=== PATIENT | female | born 1945 | race Caucasian/White ===

== ENCOUNTER 2020-07-10 00:45 | Emergency (ER) | payer OTHER ==
[2020-07-10] MEDS ORDERED: HYDROCODONE/APAP 7.5/325 MG TAB ONE (01:30)
--- NOTE | 2020-07-10 01:45 | ER ---
Nurse's Notes [facility] Name: Nela Handy Age: 75 yrs Sex: Female : 1945 Arrival Date: 07/10/2020 Time: 00:49 Bed 5 Private MD: Diagnosis: Fall due to bumping against object;Pain in right knee;Contusion of right knee;Obesity, unspecified Presentation: 07/10 01:01 Chief complaint: Patient states: fell at 10 PM, reports right knee pain, denies hitting em head, is taking warfarin for prior CVA. Coronavirus screen: Client denies travel out of the [place] in the last 14 days. Ebola Screen: Patient negative for fever greater than or equal to 101.5 degrees Fahrenheit, and additional compatible Ebola Virus Disease symptoms Patient denies exposure to infectious person. Patient denies travel to an Ebola-affected area in the 21 days before illness onset. No symptoms or risks identified at this time. Initial Sepsis Screen: Does the patient meet any 2 criteria? No. Patient's initial sepsis screen is negative. Does the patient have a suspected source of infection? No. Patient's initial sepsis screen is negative. Risk Assessment: Do you want to hurt yourself or someone else? Patient reports no desire to harm self or others. Onset of symptoms was July 10, 2020. 01:01 Method Of Arrival: Wheelchair em 01:01 Acuity: ANNE 3 em Historical: - Allergies: 01:04 No Known Allergies; em - Home Meds: 01:07 warfarin 5 mg Oral tab [Active]; amiodarone 200 mg Oral tab [Active]; buspirone 15 mg em Oral tab [Active]; famotidine 20 mg Oral tab [Active]; metoprolol succinate 100 mg oral Tb24 1 tab once daily [Active]; furosemide 40 mg Oral tab [Active]; - PMHx: 01:04 Hypertension; CHF; CVA; em - Immunization history:: Adult Immunizations up to date. - Social history:: Smoking status: Patient denies any tobacco usage or history of. - Family history:: not pertinent. Screenin:10 Abuse screen: Denies threats or abuse. Nutritional screening: No deficits noted. ea Tuberculosis screening: No symptoms or risk factors identified. Fall Risk None identified. Assessment: 01:10 General: Appears in no apparent distress. Behavior is calm, cooperative, appropriate ea for age. Pain: Complains of pain in right knee. Neuro: Level of Consciousness is awake, alert, obeys commands, Oriented to person, place, time. Cardiovascular: Patient's skin is warm and dry. Respiratory: Airway is patent Respiratory effort is even, unlabored, Respiratory pattern is regular, symmetrical. Derm: Skin is pink, warm \T\ dry. 02:08 Reassessment: Patient appears in no apparent distress at this time. Patient is alert, rr5 oriented x 3, equal unlabored respirations, skin warm/dry/pink. discharge instruction given and explained without complaints made. Vital Signs: 01:01 BP 135 / 58; Pulse 68; Resp 18; Temp 97.7; Pulse Ox 97% on R/A; Weight 95.25 kg; Height em 5 ft. 2 in. (157.48 cm); 02:08 BP 127 / 85; Pulse 69; Resp 16; Pulse Ox 98% ; rr5 01:01 Body Mass Index 38.41 (95.25 kg, 157.48 cm) em ED Course: 00:49 Patient arrived in ED. bp1 00:53 Matt Nicholson MD is Attending Physician. evy 01:03 Triage completed. em 01:04 Arm band placed on. em 01:09 Angely العراقي, YAMILEX is Primary Nurse. ea 01:30 Knee Right 3 View XRAY In Process Unspecified. EDMS 01:42 Daniel Bundy MD is Referral Physician. evy 01:48 Patient has correct armband on for positive identification. Bed in low position. Call ea light in reach. Side rails up X2. 02:08 No provider procedures requiring assistance completed. Patient did not have IV access rr5 during this emergency room visit. Knee immobilizer applied on right knee. Administered Medications: 01:15 Drug: [place] (HYDROcodone-acetaminophen) (7.5 mg-325 mg) 1 tabs Route: PO; ea 02:09 Follow up: Response: No adverse reaction; Pain is decreased; RASS: Alert and Calm (0) rr5 Outcome: 01:44 Discharge ordered by . evy 02:08 Discharged to home via wheelchair, with family. rr5 02:08 Condition: stable 02:08 Discharge instructions given to patient, family, Instructed on discharge instructions, follow up and referral plans. medication usage, Demonstrated understanding of instructions, follow-up care, medications, Prescriptions given X 1. 02:09 Patient left the ED. rr5 Signatures: Dispatcher [employer] Matt Aleman MD MD cha Munoz, Edgar, RN RN Angely Bella RN RN ea Roque, Raymond RN RN rr5 Kaylee Jacobson
--- NOTE | 2020-07-10 01:45 | EDPHYS ---
Physician Documentation [facility] Name: Nela Handy Age: 75 yrs Sex: Female : 1945 Arrival Date: 07/10/2020 Time: 00:49 Bed 5 Private MD: ED Physician Matt Nicholson HPI: 07/10 01:09 This 75 yrs old Female presents to ER via Wheelchair with complaints of Fall evy Injury, Leg Pain. 01:09 Details of fall: The patient fell from an upright position, while walking. Onset: The evy symptoms/episode began/occurred just prior to arrival. Associated injuries: The patient sustained right knee, contusion, decreased range of motion. Severity of symptoms: At their worst the symptoms were mild, in the emergency department the symptoms are unchanged. The patient has not experienced similar symptoms in the past. Historical: - Allergies: 01:04 No Known Allergies; em - Home Meds: 01:07 warfarin 5 mg Oral tab [Active]; amiodarone 200 mg Oral tab [Active]; buspirone 15 mg em Oral tab [Active]; famotidine 20 mg Oral tab [Active]; metoprolol succinate 100 mg oral Tb24 1 tab once daily [Active]; furosemide 40 mg Oral tab [Active]; - PMHx: 01:04 Hypertension; CHF; CVA; em - Immunization history:: Adult Immunizations up to date. - Social history:: Smoking status: Patient denies any tobacco usage or history of. - Family history:: not pertinent. ROS: 01:09 Constitutional: Negative for fever, chills, and weight loss, Eyes: Negative for injury, evy pain, redness, and discharge, ENT: Negative for injury, pain, and discharge, Neck: Negative for injury, pain, and swelling, Cardiovascular: Negative for chest pain, palpitations, and edema, Respiratory: Negative for shortness of breath, cough, wheezing, and pleuritic chest pain, Abdomen/GI: Negative for abdominal pain, nausea, vomiting, diarrhea, and constipation, Back: Negative for injury and pain, : Negative for injury, bleeding, discharge, and swelling, Skin: Negative for injury, rash, and discoloration, Neuro: Negative for headache, weakness, numbness, tingling, and seizure, Psych: Negative for depression, anxiety, suicide ideation, homicidal ideation, and hallucinations, Allergy/Immunology: Negative for hives, rash, and allergies, Endocrine: Negative for neck swelling, polydipsia, polyuria, polyphagia, and marked weight changes, Hematologic/Lymphatic: Negative for swollen nodes, abnormal bleeding, and unusual bruising. 01:09 MS/extremity: Positive for decreased range of motion, erythema, pain, swelling, tenderness, of the right leg and left leg, right knee. Exam: 01:11 Constitutional: This is a well developed, well nourished patient who is awake, alert, evy and in no acute distress. Head/Face: Normocephalic, atraumatic. Eyes: Pupils equal round and reactive to light, extra-ocular motions intact. Lids and lashes normal. Conjunctiva and sclera are non-icteric and not injected. Cornea within normal limits. Periorbital areas with no swelling, redness, or edema. ENT: Nares patent. No nasal discharge, no septal abnormalities noted. Tympanic membranes are normal and external auditory canals are clear. Oropharynx with no redness, swelling, or masses, exudates, or evidence of obstruction, uvula midline. Mucous membranes moist. Neck: Trachea midline, no thyromegaly or masses palpated, and no cervical lymphadenopathy. Supple, full range of motion without nuchal rigidity, or vertebral point tenderness. No Meningismus. Chest/axilla: Normal chest wall appearance and motion. Nontender with no deformity. No lesions are appreciated. Cardiovascular: Regular rate and rhythm with a normal S1 and S2. No gallops, murmurs, or rubs. Normal PMI, no JVD. No pulse deficits. Respiratory: Lungs have equal breath sounds bilaterally, clear to auscultation and percussion. No rales, rhonchi or wheezes noted. No increased work of breathing, no retractions or nasal flaring. Abdomen/GI: Soft, non-tender, with normal bowel sounds. No distension or tympany. No guarding or rebound. No evidence of tenderness throughout. Back: No spinal tenderness. No costovertebral tenderness. Full range of motion. Female : Normal external genitalia. Skin: Warm, dry with normal turgor. Normal color with no rashes, no lesions, and no evidence of cellulitis. Neuro: Awake and alert, GCS 15, oriented to person, place, time, and situation. Cranial nerves II-XII grossly intact. Motor strength 5/5 in all extremities. Sensory grossly intact. Cerebellar exam normal. Normal gait. Psych: Awake, alert, with orientation to person, place and time. Behavior, mood, and affect are within normal limits. 01:11 Musculoskeletal/extremity: Extremities: noted in the right knee: decreased ROM, erythema, pain, swelling, tenderness, ROM: limited active range of motion, in the right knee, limited passive range of motion, Circulation is intact in all extremities. Sensation intact. Compartment Syndrome exam of affected extremity: is normal. Joints: All joints are normal except the right knee displays limited range of motion, pain at rest, painful range of motion, swelling, tenderness, DVT Exam: negative Homans' sign noted on exam, no appreciated bluish discoloration, no increased warmth, pain, swelling, tenderness, erythema. Vital Signs: 01:01 BP 135 / 58; Pulse 68; Resp 18; Temp 97.7; Pulse Ox 97% on R/A; Weight 95.25 kg; Height em 5 ft. 2 in. (157.48 cm); 02:08 BP 127 / 85; Pulse 69; Resp 16; Pulse Ox 98% ; rr5 01:01 Body Mass Index 38.41 (95.25 kg, 157.48 cm) em MDM: 00:53 Patient medically screened. [facility] 01:13 Differential diagnosis: contusion. Data reviewed: vital signs, nurses notes, radiologic evy studies, plain films. Data interpreted: court monitor: rate is 68 beats/min, rhythm is regular, Pulse oximetry: on room air is 68 %. Test interpretation: by ED physician or midlevel provider: plain radiologic studies. Counseling: I had a detailed discussion with the patient and/or guardian regarding: radiology results. 07/10 01:06 Order name: Knee Right 3 View XRAY [facility] 07/10 01:09 Order name: Ice pack; Complete Time: 02:08 evy 07/10 01:09 Order name: Knee Immobilizer; Complete Time: 02:07 [facility] Administered Medications: 01:15 Drug: [place] (HYDROcodone-acetaminophen) (7.5 mg-325 mg) 1 tabs Route: PO; ea 02:09 Follow up: Response: No adverse reaction; Pain is decreased; RASS: Alert and Calm (0) rr5 Disposition: 07/10/20 01:44 Discharged to Home. Impression: Fall due to bumping against object, Pain in right knee, Contusion of right knee, Obesity, unspecified. - Condition is Stable. - Discharge Instructions: Joint Pain, How to Use a Knee Brace, Musculoskeletal Pain, Obesity, Adult, Knee Pain, Cryotherapy, [id number], Fall Prevention in the Home, [id number], Cryotherapy. - Prescriptions for Tylenol- Codeine #3 300-30 mg Oral Tablet - take 2 tablets by ORAL route every 4-6 hours As needed; 20 tablet. - Medication Reconciliation Form, Thank You Letter, Antibiotic Education, Prescription Opioid Use form. - Follow up: Private Physician; When: 2 - 3 days; Reason: Recheck today's complaints, Continuance of care, Re-evaluation by your physician. Follow up: Daniel Bundy MD; When: 2 - 3 days; Reason: Recheck today's complaints, Re-evaluation by your physician. - Problem is new. - Symptoms have improved. Signatures: Dispatcher [employer] EDMatt Elise MD MD cha Munoz, Edgar, RN RN Angely Bella, RN RN Lenny Beltre RN RN rr5 Corrections: (The following items were deleted from the chart) 02:09 01:44 07/10/2020 01:44 Discharged to Home. Impression: Fall due to bumping against rr5 object; Pain in right knee; Contusion of right knee; Obesity, unspecified. Condition is Stable. Forms are Medication Reconciliation Form, Thank You Letter, Antibiotic Education, Prescription Opioid Use. Follow up: Private Physician; When: 2 - 3 days; Reason: Recheck today's complaints, Continuance of care, Re-evaluation by your physician. Follow up: Daniel Bundy; When: 2 - 3 days; Reason: Recheck today's complaints, Re-evaluation by your physician. Problem is new. Symptoms have improved. evy
[2020-07-10 02:15] VITALS: TEMP 97.7
[2020-07-10 02:16] VITALS: BP 127/85; O2SAT 98
--- NOTE | 2020-07-10 06:45 | RAD REPORT ---
EXAM DESCRIPTION: RAD - Knee Right 3 View - 07/10/2020 1:30 am CLINICAL HISTORY: PAIN COMPARISON: No comparisons FINDINGS: No fracture, dislocation or periosteal reaction.No joint effusion seen. No joint space urbano rowing. No foreign body in the soft tissues. There are contusion or edema changes anteromedial soft t issues IMPRESSION: No acute bone or joint finding seen. Clinical concerns for internal derangement or occult bony injury could be further assessed with MR im aging.
== END 2020-07-10 02:09 | disposition home or self-care (01) ==
LOC: ER 00:45
DX: S80.01XA Contusion of right knee, initial encounter (principal); E66.9 Obesity, unspecified; W18.00XA Striking against unspecified object with subsequent fall, initial encounter; Y93.01 Activity, walking, marching and hiking; Y92.9 Unspecified place or not applicable; Z79.01 Long term (current) use of anticoagulants; Z86.73 Personal history of transient ischemic attack (TIA), and cerebral infarction without residual deficits; I10 Essential (primary) hypertension; I50.9 Heart failure, unspecified
CPT/HCPCS: 99284

== ENCOUNTER 2020-09-10 19:11 | Inpatient (IN) | payer OTHER ==
--- OUTSIDE RECORDS SUMMARY | 2020-09-10 19:16 | XMS REPORT | Continuity of Care Document ---
:1945 Author Organization [facility] t Address [facility] [address] [place] [address] Care Team Providers Name Role Phone Kemar PADRON, Jose Santos Primary Care Physician Danielle Reinoso MD Attending Clinician Hung PADRON Attending Clinician Tyesha Casanova MD' Attending Clinician DANIELLE REINOSO Attending Clinician Unavailable DANIELLE REINOSO Admitting Clinician Unavailable Payers Payer Name Policy Type Policy Number Effective Date Expiration Date S ourmorenita AETNA - MEDICARE [id number] [address] [facility] [address] [facility] MGD CAREAETNA 00:00:00 - Medical MEDICARE O POS Center [id number], [place] [address] Problems Condition Condition Condition Status Onset Resolution Last Treating Co mments Source Name Details Category Date Date Treatment Clinician Date 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, 07-13 [facility] - right right 00:00: Medical 00 Center Allergies, Adverse Reactions, Alerts Allergy Allergy Status Severity Reaction(s) Onset Inactive Treating Comm ents Source Name Type Date Date Clinician Penicill Propensi Active [facility] to 07[facility]13 [facility] - adverse 00:00: Medical reaction 00 Center s Social History Social Habit Start Date Stop Date Quantity Comments Source Sex Assigned At [facility] Medications Ordered Filled Start Stop Current Ordering Indication Dosage Frequency Signature Comments Components Source Medication Medication Date Date Medication? Clinician (SIG) Name Name digoxin 2021- Yes 250ug QD Take [address] [facility] (LANOXIN) 4-30 04-30 tablet [facility] - 0.25 MG 00:00: 23:59 (250 mcg Medic al tablet 00 :00 total) by Center mouth daily. famotidine Yes 20mg Q.5D Take [address] (PEPCID) 20 4-29 by mouth 2 Carlito kes - MG tablet 17:26: (two) Medical 06 times Center daily. furosemide Yes 40mg Q.5D Take [address] (LASIX) 40 4-29 by mouth 2 Telma es - MG tablet 17:26: (two) Medical 06 times Center daily. levalbutero Yes 1{ampul Take [address] (XOPENEX) 4-29 e} ampule by Telma es - 1.25 mg/3 17:26: nebulizati Me dical mL 06 on every 4 Center nebulizer (four) solution hours as needed for Wheezing. metoprolol Yes 50mg Q.5D Take [address] tartrate 4-29 by mouth 2 [facility] - (LOPRESSOR) 17:26: (two) Medic al 50 MG 06 times Center tablet daily. silver Yes QD Apply [facility] sulfADIAZIN 4-29 topically Telma es - E 17:26: daily. Medical (SILVADENE, 06 Center SSD) 1 % cream warfarin Yes 5mg QD Take [address] [facility] (COUMADIN, 4-29 by mouth [facility] - JANTOVEN) 5 17:26: daily. Medi alfreda MG tablet 06 Center tiotropium Yes 18ug QD Inhale [address] (SPIRIVA) 4-29 mcg by [facility] - 18 mcg 17:26: mouth via Medica l inhalation 06 inhaler Center capsule daily. acetaminoph Yes 650mg Take [address] en 4-29 mg by [facility] - (TYLENOL) 17:26: mouth Medical 325 MG 06 every 6 Center tablet (six) hours as needed for Pain. amiodarone 0 Yes 200mg QD Take [address] (PACERONE) 4-29 mg by [facility] - 200 MG 17:26: mouth Medical tablet 06 daily. Center busPIRone 2021-0 Yes 15mg Q.5D Take [address] (BUSPAR) 15 -29 by mouth 2 Carlito kes - MG tablet 17:26: (two) Medical 06 times Center daily. vancomycin Yes 1000mg Q24H Inject [facility] (VANCOCIN) - 1,000 mg [facility] - 1000 mg in 00:00: intravenou M edical sodium 00 sly daily. Center chloride 0.9 % (NS) 250 mL ADD EASE IVPB Vital Signs Vital Name Observation Time Observation Value Comments Source Systolic blood 2020-07-25 16:18:00 120 mm[Hg] [facility] Diastolic blood 2020-07-25 16:18:00 70 mm[Hg] [facility] S [facility] Heart rate 2020-07-25 16:18:00 82 /min [facility] Body temperature 2020-07-25 16:18:00 36.67 [place] [facility] Respiratory rate 2020-07-25 16:18:00 18 /min [facility] Oxygen saturation in 2020-07-25 16:18:00 99 /min [facility] Arterial blood by Medical Ce nter Pulse oximetry Body height 2020-07-13 22:28:00 157.5 cm [facility] Body weight 2020-07-13 22:28:00 91.173 kg [facility] BMI 2020-07-13 22:28:00 36.76 kg/m2 [facility] Procedures Procedure Date / Time Performing Clinician Source Performed POCT-GLUCOSE METER 2020-07-25 16:42:00 Jose Reinoso [facility] POCT-GLUCOSE METER 2020-07-25 12:20:00 [facility] POCT-GLUCOSE METER 2020-07-25 08:20:00 Jose Reinoso [facility] PROTHROMBIN TIME/INR 2020-07-25 04:49:[address] [facility] PROTHROMBIN TIME/INR 2020-07-24 06:21:[address] [facility] BASIC METABOLIC PANEL (7) 2020-07-24 03:10:[address] [facility] MAGNESIUM 2020-07-24 03:10:[address] [facility] CBC W/PLT COUNT & AUTO 2020-07-24 03:09:00 Johnny Ferrariluis Foster [facility] XR SHOULDER LEFT COMPLETE 2020-07-23 19:22:00 Vianney Ferrari [facility] - MIN 2 VIEWS [facility] TRANSESOPHAGEAL ECHO 2020-07-23 08:24:09 Alf [facility] COLOR-FLOW MAPPING 2020-07-22 16:37:08 Lamar [facility] CONT WAVE PULSED DOPPLER 2020-07-22 16:37:08 Alf [facility] MAGNESIUM 2020-07-22 03:24:[address] [facility] CBC W/PLT COUNT & AUTO 2020-07-22 03:24:00 RamomattTrevin tabares [facility] BASIC METABOLIC PANEL (7) 2020-07-22 03:24:00 [facility] V[facility]ney rojas [facility] XR CHEST 1 VIEW 2020-07-21 06:10:00 Trevin Ferrari [facility] - PORTABLE/BEDSIDE [facility] VANCOMYCIN LEVEL, TROUGH 2020-07-20 23:19:00 Earlene Persaud [facility] POCT-GLUCOSE METER 2020-07-20 17:17:00 Jose Reinoso [facility] POCT-GLUCOSE METER 2020-07-20 11:41:00 [facility] POCT-GLUCOSE METER 2020-07-20 08:04:00 [facility] W/PLT COUNT & AUTO 2020-07-20 05:45:[address] [facility] DIFFERENTIAL [facility] COMPREHENSIVE METABOLIC 2020-07-20 05:45:00 Trevin Ferrari [facility] PANEL [facility] MAGNESIUM 2020-07-20 05:45:00 Trevin Ferrari [facility] POCT-GLUCOSE METER 2020-07-19 16:02:00 Jose Reinoso [facility] POCT-GLUCOSE METER 2020-07-19 11:51:00 Jose Reinoso [facility] POCT-GLUCOSE METER 2020-07-19 08:30:00 Jose Reinoso [facility] POCT-GLUCOSE METER 2020-07-18 17:10:00 Jose Reinoso [facility] SARS-COV2/RT-PCR ([facility] & 2020-07-18 14:17:00 Jose Reinoso [facility] POCT-GLUCOSE METER 2020-07-18 11:58:00 Jose Reinoso [facility] POCT-GLUCOSE METER 2020-07-18 08:16:00 Jose Reinoso [facility] POCT-GLUCOSE METER 2020-07-17 21:30:00 Jose Reinoso [facility] POCT-GLUCOSE METER 2020-07-17 17:52:00 Jose Reinoso [facility] PROTHROMBIN TIME/INR 2020-07-17 12:54:00 Jasper Milner [facility] POCT-GLUCOSE METER 2020-07-17 11:22:00 Jose Reinoso [facility] XR CHEST 1 VIEW 2020-07-17 09:39:00 Wilton Gonzalez [facility] PORTABLE/BEDSIDE [facility] POCT-GLUCOSE METER 2020-07-17 09:15:00 [facility] W/PLT COUNT & AUTO 2020-07-17 05:04:00 Jose Reinoso [facility] COMPREHENSIVE METABOLIC 2020-07-17 05:04:00 Live Reinosolala Castorenaijll [facility] MAGNESIUM 2020-07-17 05:04:00 Jose Reinoso [facility] VANCOMYCIN LEVEL, TROUGH 2020-07-16 22:44:00 Ciro James [facility] POCT-GLUCOSE METER 2020-07-16 19:52:00 Jose Reinoso [facility] POCT-GLUCOSE METER 2020-07-16 15:20:00 [facility] XR CHEST 1 VIEW 2020-07-16 13:49:00 Wilton Gonzalez [facility] PORTABLE/BEDSIDE [facility] POCT-GLUCOSE METER 2020-07-16 11:37:00 Kemar Jose [facility] POCT-GLUCOSE METER 2020-07-16 07:07:00 [facility] CBC W/PLT COUNT & AUTO 2020-07-16 04:58:00 Live Reinosolala [facility] COMPREHENSIVE METABOLIC 2020-07-16 04:58:00 Alda Valenzuela [facility] MAGNESIUM 2020-07-16 04:58:00 Live Reinosolala [facility] POCT-GLUCOSE METER 2020-07-15 20:16:00 [facility] POCT-GLUCOSE METER 2020-07-15 17:17:00 Kemar [facility] POCT-GLUCOSE METER 2020-07-15 12:15:00 Kemar [facility] TSH/FREE T4 IF INDICATED 2020-07-15 11:20:00 Alda Valenzuela [facility] 2D ECHO W/ DOPPLER 2020-07-15 10:03:19 Earlene Persaud [facility] (CW/PW/COLOR) [facility] B-TYPE NATRIURETIC FACTOR 2020-07-15 09:45:00 JocelyneSebastian [facility] (BNP) [facility] BASIC METABOLIC PANEL (7) 2020-07-15 09:45:00 Daniela [facility] PROTHROMBIN TIME/INR 2020-07-15 09:45:00 Daniela [facility] POCT-GLUCOSE METER 2020-07-15 08:22:00 Jose Reinoso [facility] CBC (HEMOGRAM ONLY) 2020-07-15 07:00:00 Daniela [facility] POCT-GLUCOSE METER 2020-07-14 22:01:00 Jose Reinoso [facility] ECG 12-LEAD 2020-07-14 17:41:51 Unknown, Hl7 [facility] POCT-GLUCOSE METER 2020-07-14 17:21:00 [facility] POCT-GLUCOSE METER 2020-07-14 13:06:00 Kemar [facility] POCT-GLUCOSE METER 2020-07-14 08:45:00 [facility] XR HIP 2 VIEWS RIGHT 2020-07-14 06:52:00 Hung [facility] XR FEMUR 2 VIEWS RIGHT 2020-07-14 06:52:00 [facility] ECG 12-LEAD 2020-07-13 23:33:10 Unknown, Hl7 [facility] ECG 12-LEAD 2020-07-13 23:32:45 Unknown, Hl7 [facility] ECG 12-LEAD 2020-07-13 23:30:49 Unknown, Hl7 [facility] BLOOD CULTURE 2020-07-13 22:59:00 [facility] CBC W/PLT COUNT & AUTO 2020-07-13 22:58:00 [facility] BLOOD CULTURE 2020-07-13 22:58:00 [facility] BASIC METABOLIC PANEL (7) 2020-07-13 22:57:00 formerly [facility] HEPATIC FUNCTION PANEL 2020-07-13 22:57:00 [facility] PROTHROMBIN TIME/INR 2020-07-13 22:57:00 [facility] HEMOGLOBIN A1C 2020-07-13 22:57:00 [facility] MAGNESIUM 2020-07-13 22:57:00 [facility] VANCOMYCIN LEVEL, RANDOM 2020-07-13 22:57:00 [facility] REPORT OF PROCEDURE - 2020-07-13 00:00:00 Provider, Marci [facility] ENDOSCOPY SCAN Scanning [facility] Plan of Care Planned Activity Planned Date Details Comments Source Future Scheduled 2020-11-[address] [facility] Test 00:00:00 (Season Ended) [code = [facility] INFLUENZA VACCINE (Season Ended)] Future Scheduled 2020-03-[address] [facility] - Test 00:00:00 (12+) [code = Medical Center DEPRESSION SCREENING (12+)] Future Scheduled 2020-03-29 Medicare IPPE (WELCOME [facility] 00:00:00 TO MEDICARE) [code = Medical Center Medicare IPPE (WELCOME TO MEDICARE)] Future Scheduled 2008 PNEUMOCOCCAL 65+ YRS [facility] - Test 00:00:00 (1 of 1 - [facility] [id number] PCV13) [code = PNEUMOCOCCAL 65+ YRS (1 of 1 - [id number] PCV13)] Future Scheduled 1993 SHINGLES VACCINES ([address] [facility] - Test 00:00:00 of 2) [code = SHINGLES Medic al Center VACCINES (1 of 2)] Future Scheduled 1962 DTAP/TDAP/TD VACCINES [facility] Test 00:00:00 (1 - Tdap) [code = Medical C enter DTAP/TDAP/TD VACCINES (1 - Tdap)] Future Scheduled 1961 HEPATITIS C SCREENING [facility] Test 00:00:00 [code = HEPATITIS C Medical Center SCREENING] Future Scheduled 1955 COVID-19 VACCINE (1) [facility] - Test 00:00:00 [code = COVID-[address] VACCINE (1)] Results Test Description Test Time Test Comments Results Result Comments Source POC-Glucose meter 2020-07-25 16:53:00 Test Item Value Reference Range Interpretation Comme nts POC-Glucose Meter (test code = 110 mg/dL 70-110 : Notified RN/MD: TESTED AT [facility] 1538) [address] [place] [address]: Nursery Supervisor /Floor Worker ID = [id number] for Arenk er, Ayushben Lab Interpretation (test code = Normal 20991-5) [facility] [id number] 16:53:00 Test Item Value Reference Range Interpretation Comments POC-GLUCOSE METER 110 mg/dL 70-110 : Notified RN/MD: TESTED ([facility]) ([facility] [address] = [address]) [place] [address]: Nursery Supervisor/Techni seble ID = [id number] for Arenk er, Nikitaben POCT-GLUCOSE [id number] 12:32:00 Test Item Value Reference Range Interpretation Comments POC-GLUCOSE METER 84 mg/dL 70-110 : Notified RN/MD: TESTED ([facility]) (test code = AT S[facility] L [address]) [place] [address]: Nursery Supervisor/Techni seble ID = [id number] for Thak er, Nikitaben POCT-GLUCOSE [id number] 08:31:00 Test Item Value Reference Range Interpretation Comments POC-GLUCOSE METER 97 mg/dL 70-110 : TESTED A T [facility] [facility] (test code = JUAN P [facility], 1538) [facility] [address]: Nursery Supervisor/Techni seble ID = [id number] for Stacy Marcus Prothrombin time/[id number] 06:02:00 Test Item Value Reference Interpretation Comments Range Protime (test code = 27.4 See_Comment H Final 5902-2) Information (Auto Output) [Automated message] The system which generated this result transmitted reference range : 9.3 - 12.0 seconds. The reference range was not used to interpret this result as normal/abnormal . INR (test code = 2.61 See_Comment Final 6301-6) Information (Auto Output) [Automated message] The system which generated this result transmitted reference range : <=5.90. The reference range was not used to interpret this result as normal/abnormal . ISELA (test code = RECOMMENDED ISELA) COUMADIN/WARFARIN INR THERAPY RANGESSTANDARD DOSE: 2.0 - 3.0 Includes: PROPHYLAXIS for venous thrombosis, systemic embolization; TREATMENT for venous thrombosis and/or pulmonary embolus.HIGH RISK: Target INR is 2.5-3.5 for patients with mechanical heart valves. Lab Interpretation Abnormal (test code = 13613-9) [facility] TIME/[id number] 06:02:00 Test Item Value Reference Range Interpretation Comments PROTIME (BEAKER) 27.4 seconds 9.3-12.0 H Final Infor mation (test code = 759) (Auto Outp ut) INR (BEAKER) (test 2.61 See_Comment Final Inf ormation code = 370) (Auto Output) [Automated mess age] The system [facility] generated this result transmitted ref erence range: <=5.90. The reference range was not used to int erpret this result as normal/abnormal . RECOMMENDED COUMADIN/WARFARIN INR THERAPY RANGESSTANDARD DOSE: 2.0 - 3.0 Includes: PROPHYLAXIS forvenous thrombosis, systemic embolization; TREATMENT for venous thrombosis and/or pulmonary embolus.HIGH RISK: Target INR is 2.5-3.5 for patients with mechanical heart valves.Transesophageal [id number] 07:33:21 Ejection FractionSLEH ECHO HEARTLAB MKCKESSON CPACSInterface, External Ris In 07/24/2020 7:33 AM CDTTransesophageal Echocardiography Report (ASIF) Demographics Patient Name MARA CORRALES Date of Study 07/23/2020 Gender Female Visit Number [id number] Race Unknown Room Number B532 Number Date of 1945 Referring Physician 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 Physician Procedure Type of Study ASIF procedure:TRANSESOPHAGEAL ECHO (Routine) Indications:Sustained or non sustained Afib, SVT or VT.Clinical HistoryNO PAST MEDICAL HISTORYHeight: 62 inches Weight: 91.17 kg (201 lbs) BSA: 1.92 m^2 BMI: 36.76 kg/m^2HR: 111 bpm BP: 131/59 mmHg Summary Normal LV size with normal LV systolic function; estimated LVEF of 55-59%. The RV appears normal in size and systolic function. The LA appears at leaast moderately dilated in size. No thrombus seen in the RA, LA or LA appendage. LA appendage measurements; @ 0 degrees 1.7 cm, @45 degrees 1.5cm, @ 90 degrees 1.5cm, @ 135 degrees 1.4cm No evidence of an interatrial communication (ASD/PFO) by color flow Doppler or by agitated saline (bubble) study. Cardiac valves appear normal in structure. No evidence of valvular vegetation. Visualized portions of the ascending, descending and aortic arch do not have evidence of severe atherosclerotic disease. Signature Findings Left Ventricle The left ventricle is normal in size, wall thickness, and contractility. Left Atrium LA size is moderately enlarged . Right The right ventricularchamber size and systolic function Ventricle are within normal limits. Right Atrium RA size is normal. Atrial Septum Normal interatrial septum by available views. Aortic Valve Normal AoV structure. Mitral Valve Normal MV structure. Tricuspid TV structure is normal. Valve Pulmonic Valve Normal PV structure. Aorta Aortic root size (SInus of Valsalva diameter) is normal . Pericardium No pericardial effusion is visualized. Chambers/StructuresAorta Ao Root S of Shaylee.:2.56 [facility][id number] 07:08:00 Test Item Value Reference Range Interpretation Comments PROTIME (BEAKER) 97.8 seconds 9.3-12.0 H Final Infor mation (test code = 759) (Auto Outp ut) INR (BEAKER) (test > See_Comment HH Final Inf ormation code = 370) (Auto Output) [Automated mess age] The system Stylistpick generated this result transmitted ref erence range: <=5.90. The reference range was not used to int erpret this result as normal/abnormal . RECOMMENDED COUMADIN/WARFARIN INR THERAPY RANGESSTANDARD DOSE: 2.0 - 3.0 Includes: PROPHYLAXIS forvenous thrombosis, systemic embolization; TREATMENT for venous thrombosis and/or pulmonary embolus.HIGH RISK: Target INR is 2.5-3.5 for patients with mechanical heart valves.RAD, SHOULDER, COMPLETE (MIN 2 VIEWS), [id number] 04:28:00Reason for exam:->[facility] : 1945 Sex: FFINAL REPORT CLINICAL HISTORY: Pain. FINDINGS: 3 views of the left shoulder are submitted without comparison. There is no acute fracture or malalignment of the shoulder. The glenohumeral, acromioclavicular and coracoclavicular joints are intact. The adjacent soft tissues are unremarkable. There is no radiopaque foreign body. IMPRESSION: No acute abnormality. Signed: David Monson MDReport Verified Date/Time: 07/24/2020 04:28:07 XR shoulder complete 2 views min [id number] 04:28:00Interface, External Ris In - 07/24/2020 4:30 AM CDTFINAL REPORT CLINICAL HISTORY: Pain. FINDINGS: 3 views of the left shoulder are submitted without comparison. There is no acute fracture or malalignment of the shoulder. The glenohumeral, acromioclavicular and coracoclavicularjoints are intact. The adjacent soft tissues are unremarkable. There is no radiopaque foreign body. IMPRESSION: No acute abnormality. Signed: David Monson MDRjcort Verified Date/Time: 07/24/2020 04:28:07 [facility] [id number] 03:52:00 Test Item Value Reference Range Interpretation Comments Sodium (test code = 133 meq/L 135-148 L 2951-2) Potassium (test code 4.6 meq/L 3.6-5.5 Specime n slightly = 2823-3) hemolyzed Chloride (test code 99 meq/L 98-106 = 2075-0) CO2 (test code = 28 meq/L -29 2027-) BUN (test code = 17 mg/dL - 3094-0) Creatinine (test 0.80 mg/dL 0.5-1.2 Specimen sl ightly code = 2160-0) hemolyzed Glucose (test code = 89 mg/dL 70-110 2345-7) Calcium (test code = 8.5 mg/dL 8.5-10.5 47632-2) EGFR (test code = [place] [address]-8) CLINICAL DATA T O CALCULATE ESTIMATED GFR. ISELA (test code = Nursery Supervisor ID - ISELA) LITOOperator ID - LITOOperator ID - LITOOperator ID - LITOOperator ID - LITOOperator ID - LITOOperator ID - LITOOperator ID - LITOOperator ID - LITOOperator ID - KAEL Lab Interpretation Abnormal (test code = 88550-3) [facility] METABOLIC [id number] 03:52:00 Test Item Value Reference Range Interpretation Comments SODIUM (BEAKER) (test 133 meq/L 135-148 L code = 381) POTASSIUM (BEAKER) 4.6 meq/L 3.6-5.5 Specimen slightly (test code = 379) hemolyzed CHLORIDE (BEAKER) 99 meq/L 98-106 (test code = 382) CO2 (BEAKER) (test 28 meq/L 20-29 code = 355) BLOOD UREA NITROGEN 17 mg/dL 10-26 (BEAKER) (test code = 354) CREATININE (BEAKER) 0.80 mg/dL 0.50-1.20 Specimen slightly (test code = 358) hemolyzed GLUCOSE RANDOM 89 mg/dL 70-110 (BEAKER) (test code = 652) CALCIUM (BEAKER) 8.5 mg/dL 8.5-10.5 (test code = 697) EGFR (BEAKER) (test INSUFFIC IENT CLINICAL code = 1092) DATA TO CALCULA TE ESTIMATED GFR. Nursery Supervisor ID - LITOOperator ID - LITOOperator ID - LITOOperator ID - LITOOperator ID - LITOOperator ID - LITOOperator ID - LITOOperator ID - LITOOperator ID - LITOOperator ID - [id number] 03:50:00 Test Item Value Reference Range Interpretation Comments Magnesium (test code 1.8 mg/dL 1.5-3 Specime n = 25690-1) slightly hemolyzed ISELA (test code = ISELA) Nursery Supervisor ID - LITOOperator ID - LITOOperator ID - LITOOperator ID - KAEL Lab Interpretation Normal (test code = 52251-7) [id number] 03:50:00 Test Item Value Reference Range Interpretation Comments MAGNESIUM (BEAKER) 1.8 mg/dL 1.5-3.0 Specimen slightly (test code = 627) hemolyzed Nursery Supervisor ID - LITOOperator ID - LITOOperator ID - LITOOperator ID - LITOCBC with platelet count + automated [id number] 03:34:00 Test Item Value Reference Range Interpretation Comments WBC (test code = 6690-2) 5.9 See_Comment [A utomated message] The system Stylistpick generated this result transmitted ref erence range: 4.0 - 10 .0 K/L. The refe rence range was not u sed to interpret this result as normal/abnor mal. RBC (test code = 789-8) 3.45 See_Comment L [Au tomated message] The system [employer] generated this result transmitted ref erence range: 4.00 - 5 .00 M/L. The refe rence range was not u sed to interpret this result as normal/abnor mal. MCHC (test code = 786-4) 33.5 See_Comment [A utomated message] The system [employer] generated this result transmitted ref erence range: 32.0 - 3 6.0 GM/DL. The refe rence range was not u sed to interpret this result as normal/abnor mal. Hematocrit (test code = 37.0 % 36-46 4544-3) MCV (test code = 787-2) 107.2 fL 82-99 H MCH (test code = 785-6) 35.9 pg 27-33 H RDW (test code = 788-0) 15.8 % 12-15 H Platelets (test code = 103 See_Comment L [Aut omated message] 777-3) The system [employer] generated this result transmitted ref erence range: 150 - 43 0 K/CU MM. The referen ce range was not u sed to interpret this result as normal/abnor mal. MPV (test code = 11.3 fL 6-11.5 67416-0) nRBC (test code = 413) 0 See_Comment [Aut omated message] The system [employer] generated this result transmitted ref erence range: 0 - 0 /1 00 WBC. The refere nce range was not u sed to interpret this result as normal/abnor mal. % Neutros (test code = 57 % 429) % Lymphs (test code = 22 % 430) % Monos (test code = 15 % 431) % Eos (test code = 432) 4 % % Baso (test code = 437) 1 % # Neutros (test code = 3.39 See_Comment [Aut omated message] 670) The system [employer]pick generated this result transmitted ref erence range: 1.80 - 8 .00 K/L. The refe rence range was not u sed to interpret this result as normal/abnor mal. # Lymphs (test code = 1.33 See_Comment L [Auto mated message] 414) The system Stylistpick generated this result transmitted ref erence range: 1.48 - 4 .50 K/L. The refe rence range was not u sed to interpret this result as normal/abnor mal. # Monos (test code = 0.90 See_Comment [Autom ated message] 415) The system Stylistpick generated this result transmitted ref erence range: 0.00 - 1 .30 K/L. The refe rence range was not u sed to interpret this result as normal/abnor mal. # Eos (test code = 416) 0.21 See_Comment [Au tomated message] The system Stylistpick generated this result transmitted ref erence range: 0.00 - 0 .50 K/L. The refe rence range was not u sed to interpret this result as normal/abnor mal. # Baso (test code = 417) 0.03 See_Comment [A utomated message] The system Stylistpick generated this result transmitted ref erence range: 0.00 - 0 .20 K/L. The refe rence range was not u sed to interpret this result as normal/abnor mal. Immature 1 % 0-0 H Granulocytes-Relative (test code = 2801) Lab Interpretation (test Abnormal code = 93039-4) [facility] W/PLT COUNT & AUTO [id number] 03:34:00 Test Item Value Reference Range Interpretation Comments WHITE BLOOD CELL COUNT (BEAKER) 5.9 K/ L 4.0-10.0 (test code = 775) RED BLOOD CELL COUNT (BEAKER) 3.45 M/ L 4.00-5.00 L (test code = 761) HEMOGLOBIN (BEAKER) (test code = 12.4 GM/DL 12.0-15.5 410) HEMATOCRIT (BEAKER) (test code = 37.0 % 36.0-46.0 411) MEAN CORPUSCULAR VOLUME (BEAKER) 107.2 fL 82.0-99.0 H (test code = 753) MEAN CORPUSCULAR HEMOGLOBIN 35.9 pg 27.0-33.0 H (BEAKER) (test code = 751) MEAN CORPUSCULAR HEMOGLOBIN CONC 33.5 GM/DL 32.0-36.0 (BEAKER) (test code = 752) RED CELL DISTRIBUTION WIDTH 15.8 % 12.0-15.0 H (BEAKER) (test code = 412) PLATELET COUNT (BEAKER) (test 103 K/CU MM 150-430 L code = 756) MEAN PLATELET VOLUME (BEAKER) 11.3 fL 6.0-11.5 (test code = 754) NUCLEATED RED BLOOD CELLS 0 /100 WBC 0-0 (BEAKER) (test code = 413) NEUTROPHILS RELATIVE PERCENT 57 % (BEAKER) (test code = 429) LYMPHOCYTES RELATIVE PERCENT 22 % (BEAKER) (test code = 430) MONOCYTES RELATIVE PERCENT 15 % (BEAKER) (test code = 431) EOSINOPHILS RELATIVE PERCENT 4 % (BEAKER) (test code = 432) BASOPHILS RELATIVE PERCENT 1 % (BEAKER) (test code = 437) NEUTROPHILS ABSOLUTE COUNT 3.39 K/ L 1.80-8.00 (BEAKER) (test code = 670) LYMPHOCYTES ABSOLUTE COUNT 1.33 K/ L 1.48-4.50 L (BEAKER) (test code = 414) MONOCYTES ABSOLUTE COUNT (BEAKER) 0.90 K/ L 0.00-1.30 (test code = 415) EOSINOPHILS ABSOLUTE COUNT 0.21 K/ L 0.00-0.50 (BEAKER) (test code = 416) BASOPHILS ABSOLUTE COUNT (BEAKER) 0.03 K/ L 0.00-0.20 (test code = 417) IMMATURE GRANULOCYTES-RELATIVE 1 % 0-0 H PERCENT (BEAKER) (test code = 2801) BASIC METABOLIC [id number] 03:55:00 Test Item Value Reference Range Interpretation Comments SODIUM (BEAKER) (test 133 meq/L 135-148 L code = 381) POTASSIUM (BEAKER) 4.6 meq/L 3.6-5.5 (test code = 379) CHLORIDE (BEAKER) 99 meq/L 98-106 (test code = 382) CO2 (BEAKER) (test 26 meq/L 20-29 code = 355) BLOOD UREA NITROGEN 16 mg/dL 10-26 (BEAKER) (test code = 354) CREATININE (BEAKER) 0.81 mg/dL 0.50-1.20 (test code = 358) GLUCOSE RANDOM 100 mg/dL 70-110 (BEAKER) (test code = 652) CALCIUM (BEAKER) 8.3 mg/dL 8.5-10.5 L (test code = 697) EGFR (BEAKER) (test INSUFFIC IENT CLINICAL code = 1092) DATA TO CALCULA TE ESTIMATED GFR. Nursery Supervisor ID - [id number] ID - [id number] ID - [id number] ID - [id number] - hlicvq533Yaygpluq ID - [id number] ID - [id number] ID - [id number] ID - [id number] ID - [id number] 03:52:00 Test Item Value Reference Range Interpretation Comments MAGNESIUM (BEAKER) (test code = 1.7 mg/dL 1.5-3.0 627) Nursery Supervisor ID - [id number] ID - [id number] ID - [id number] ID - [id number] W/PLT COUNT & AUTO [id number] 03:38:00 Test Item Value Reference Range Interpretation Comments WHITE BLOOD CELL COUNT (BEAKER) 7.0 K/ L 4.0-10.0 (test code = 775) RED BLOOD CELL COUNT (BEAKER) 3.68 M/ L 4.00-5.00 L (test code = 761) HEMOGLOBIN (BEAKER) (test code = 12.9 GM/DL 12.0-15.5 410) HEMATOCRIT (BEAKER) (test code = 39.5 % 36.0-46.0 411) MEAN CORPUSCULAR VOLUME (BEAKER) 107.3 fL 82.0-99.0 H (test code = 753) MEAN CORPUSCULAR HEMOGLOBIN 35.1 pg 27.0-33.0 H (BEAKER) (test code = 751) MEAN CORPUSCULAR HEMOGLOBIN CONC 32.7 GM/DL 32.0-36.0 (BEAKER) (test code = 752) RED CELL DISTRIBUTION WIDTH 15.8 % 12.0-15.0 H (BEAKER) (test code = 412) PLATELET COUNT (BEAKER) (test 117 K/CU MM 150-430 L code = 756) MEAN PLATELET VOLUME (BEAKER) 10.9 fL 6.0-11.5 (test code = 754) NUCLEATED RED BLOOD CELLS 0 /100 WBC 0-0 (BEAKER) (test code = 413) NEUTROPHILS RELATIVE PERCENT 64 % (BEAKER) (test code = 429) LYMPHOCYTES RELATIVE PERCENT 18 % (BEAKER) (test code = 430) MONOCYTES RELATIVE PERCENT 13 % (BEAKER) (test code = 431) EOSINOPHILS RELATIVE PERCENT 3 % (BEAKER) (test code = 432) BASOPHILS RELATIVE PERCENT 0 % (BEAKER) (test code = 437) NEUTROPHILS ABSOLUTE COUNT 4.50 K/ L 1.80-8.00 (BEAKER) (test code = 670) LYMPHOCYTES ABSOLUTE COUNT 1.27 K/ L 1.48-4.50 L (BEAKER) (test code = 414) MONOCYTES ABSOLUTE COUNT (BEAKER) 0.93 K/ L 0.00-1.30 (test code = 415) EOSINOPHILS ABSOLUTE COUNT 0.20 K/ L 0.00-0.50 (BEAKER) (test code = 416) BASOPHILS ABSOLUTE COUNT (BEAKER) 0.03 K/ L 0.00-0.20 (test code = 417) IMMATURE GRANULOCYTES-RELATIVE 1 % 0-0 H PERCENT (BEAKER) (test code = 2801) RAD, CHEST, 1 VIEW, NON [id number] 06:58:00Reason for exam:->sobShould this be performed at the bedside?->Yes [facility] 1945 Sex: FFINAL REPORT RAD, CHEST, 1 VIEW, NON DEPT INDICATION: sob COMPARISON: 07/17/2020 FINDINGS: Portable frontal view of the chest. IMPRESSION: Support Lines: None Lungs and pleura: No significant change in scattered bilateral parenchymal opacities given variation in image acquisition. No sizable effusion. No pneumothorax.Heart and mediastinum: Stable contours.Additional findings: None. Signed: Mirella Hinds Verified Date/Time: 07/21/2020 06:58:18 XR chest 1 view portable / [id number] 06:58:00Interface, External Ris In - 07/21/2020 7:01 AM CDTFINAL REPORT RAD, CHEST, 1 VIEW, NON DEPT INDICATION: sob COMPARISON: 07/17/2020 FINDINGS: Portable frontal view of the chest. IMPRESSION: Support Lines: None Lungs and pleura: No significant change in scattered bilateral parenchymal opacities given variation in image acquisition. No sizable effusion. No pneumothorax.Heart and mediastinum: Stable contours.Additional findings: None. Signed: Mirella Hinds Verified Date /Time: 07/21/2020 06:58:18 [facility] 2020-07-20 23:53:00 Test Item Value Reference Range Interpretation Comments Vancomycin Tr (test code = 10.2 ug/mL 01-15 4092-3) ISELA (test code = ISELA) Nursery Supervisor ID - [id number] Lab Interpretation (test Normal code = 31578-6) [facility] [id number] 23:53:00 Test Item Value Reference Range Interpretation Comments VANCOMYCIN TROUGH (BEAKER) (test 10.2 ug/mL 10.0-20.0 code = 522) Nursery Supervisor ID - [id number] 19:06:00 Test Item Value Reference Range Interpretation Comments POC-GLUCOSE METER 107 mg/dL 70-110 : TESTED A T [address] 1317 (BEAKER) (test code [address], = 1538) [place] [address]: Nursery Supervisor/Techni seble ID = [id number] for Buff kj, Jennifer POCT-GLUCOSE [id number] 18:47:00 Test Item Value Reference Range Interpretation Comments POC-GLUCOSE METER 109 mg/dL 70-110 : TESTED A T [address] (BEAKER) (test code [address], = 1538) [place] [address] 478: Nursery Supervisor/Techni seble ID = [id number] for Buff ord, Jennifer POCT-GLUCOSE [id number] 18:36:00 Test Item Value Reference Range Interpretation Comments POC-GLUCOSE METER 78 mg/dL 70-110 : TESTED A T [address] (BEAKER) (test code = [address]) [place] [address] 478: Nursery Supervisor/Techni seble ID = [id number] for Buff ord, Jennifer Comprehensive metabolic [id number] 06:50:00 Test Item Value Reference Range Interpretation Comments Protein, Total (test 6.1 See_Comment Specime n slightly code = 3795-2) hemolyzed [Automated message] The system which generated this result transmit zafar reference range : 6.0 - 8.5 gm/dL . The reference range was not u sed to interpret th is result as normal/abnormal . Albumin (test code = 2.2 g/dL 3.5-5 L Specime n slightly 04989-0) hemolyzed Alkaline Phosphatase 179 U/L 30-115 H (test code = 6768-6) Total Bilirubin (test 1.4 mg/dL 0.1-1.2 H Specim en slightly code = 2902-2) hemolyzed Sodium (test code = 131 meq/L 135-148 L 2951-2) Potassium (test code 4.1 meq/L 3.6-5.5 Specime n slightly = 4503-3) hemolyzed Chloride (test code = 101 meq/L 98-106 2075-0) CO2 (test code = 23 meq/L 20-29 8-9) BUN (test code = 17 mg/dL 10-26 3094-0) Creatinine (test code 0.75 mg/dL 0.5-1.2 Specim en slightly = 2160-0) hemolyzed Glucose (test code = 87 mg/dL 70-110 2345-7) Calcium (test code = 8.3 mg/dL 8.5-10.5 L 32698-1) AST (test code = 47 U/L 5-40 H Specimen sl ightly 1920-8) hemolyzed ALT (test code = 11 U/L 5-50 Specimen sl ightly 1742-6) hemolyzed EGFR ([place] = [place] [address]-7) CLINICAL DATA T O CALCULATE ESTIMATED GFR. ISELA (test code = ISELA) Nursery Supervisor ID - [id number] ID - [id number] ID - [id number] ID - [id number] ID - [id number] ID - [id number] ID - burl79Emisfgow ID - [id number] ID - [id number] ID - [id number] ID - [id number] ID - [id number] ID - [id number] ID - [id number] ID - wysy10Dvzezgdb ID - [id number] Lab Interpretation Abnormal (test code = 91448-1) [facility] [id number] 06:50:00 Test Item Value Reference Range Interpretation Comments TOTAL PROTEIN 6.1 gm/dL 6.0-8.5 Specimen sligh tly (BEAKER) (test code = hemoly zed 770) ALBUMIN (BEAKER) 2.2 g/dL 3.5-5.0 L Specimen sl ightly (test code = 1145) hemolyzed ALKALINE PHOSPHATASE 179 U/L 30-115 H (BEAKER) (test code = 346) BILIRUBIN TOTAL 1.4 mg/dL 0.1-1.2 H Specimen sli ghtly (BEAKER) (test code = hemoly zed 377) SODIUM (BEAKER) (test 131 meq/L 135-148 L code = 381) POTASSIUM (BEAKER) 4.1 meq/L 3.6-5.5 Specimen slightly (test code = 379) hemolyzed CHLORIDE (BEAKER) 101 meq/L 98-106 (test code = 382) CO2 (BEAKER) (test 23 meq/L 20-29 code = 355) BLOOD UREA NITROGEN 17 mg/dL 10-26 (BEAKER) (test code = 354) CREATININE (BEAKER) 0.75 mg/dL 0.50-1.20 Specimen slightly (test code = 358) hemolyzed GLUCOSE RANDOM 87 mg/dL 70-110 (BEAKER) (test code = 652) CALCIUM (BEAKER) 8.3 mg/dL 8.5-10.5 L (test code = 697) AST (SGOT) (BEAKER) 47 U/L 5-40 H Specimen slightly (test code = 353) hemolyzed ALT (SGPT) (BEAKER) 11 U/L 5-50 Specimen slightly (test code = 347) hemolyzed EGFR (BEAKER) (test INSUFFIC IENT CLINICAL code = 1092) DATA TO CALCULA TE ESTIMATED GFR. Nursery Supervisor ID - [id number] ID - [id number] ID - [id number] ID - [id number] ID - rlgm40Xzuurqel ID - [id number] ID - wuns83Qwzanene ID - ckza01Notnrbiq ID - pvho25Jxhlqkop ID - [id number] ID - [id number] ID - [id number] ID - makq21Inipkupc ID - itxz57Dwybzvjw ID - gfeq87Dvbrarir ID - [id number] 06:23:00 Test Item Value Reference Range Interpretation Comments MAGNESIUM (BEAKER) 1.7 mg/dL 1.5-3.0 Specimen slightly (test code = 627) hemolyzed Nursery Supervisor ID - [id number] ID - [id number] ID - [id number] ID - [id number] CBC W/PLT COUNT & AUTO [id number] 06:05:00 Test Item Value Reference Range Interpretation Comments WHITE BLOOD CELL COUNT (BEAKER) 6.2 K/ L 4.0-10.0 (test code = 775) RED BLOOD CELL COUNT (BEAKER) 3.56 M/ L 4.00-5.00 L (test code = 761) HEMOGLOBIN (BEAKER) (test code = 12.6 GM/DL 12.0-15.5 410) HEMATOCRIT (BEAKER) (test code = 38.2 % 36.0-46.0 411) MEAN CORPUSCULAR VOLUME (BEAKER) 107.3 fL 82.0-99.0 H (test code = 753) MEAN CORPUSCULAR HEMOGLOBIN 35.4 pg 27.0-33.0 H (BEAKER) (test code = 751) MEAN CORPUSCULAR HEMOGLOBIN CONC 33.0 GM/DL 32.0-36.0 (BEAKER) (test code = 752) RED CELL DISTRIBUTION WIDTH 15.8 % 12.0-15.0 H (BEAKER) (test code = 412) PLATELET COUNT (BEAKER) (test 122 K/CU MM 150-430 L code = 756) MEAN PLATELET VOLUME (BEAKER) 10.4 fL 6.0-11.5 (test code = 754) NUCLEATED RED BLOOD CELLS 0 /100 WBC 0-0 (BEAKER) (test code = 413) NEUTROPHILS RELATIVE PERCENT 66 % (BEAKER) (test code = 429) LYMPHOCYTES RELATIVE PERCENT 17 % (BEAKER) (test code = 430) MONOCYTES RELATIVE PERCENT 12 % (BEAKER) (test code = 431) EOSINOPHILS RELATIVE PERCENT 5 % (BEAKER) (test code = 432) BASOPHILS RELATIVE PERCENT 1 % (BEAKER) (test code = 437) NEUTROPHILS ABSOLUTE COUNT 4.09 K/ L 1.80-8.00 (BEAKER) (test code = 670) LYMPHOCYTES ABSOLUTE COUNT 1.05 K/ L 1.48-4.50 L (BEAKER) (test code = 414) MONOCYTES ABSOLUTE COUNT (BEAKER) 0.73 K/ L 0.00-1.30 (test code = 415) EOSINOPHILS ABSOLUTE COUNT 0.28 K/ L 0.00-0.50 (BEAKER) (test code = 416) BASOPHILS ABSOLUTE COUNT (BEAKER) 0.03 K/ L 0.00-0.20 (test code = 417) IMMATURE GRANULOCYTES-RELATIVE 1 % 0-0 H PERCENT (BEAKER) (test code = 2801) POCT-GLUCOSE [id number] 16:13:00 Test Item Value Reference Range Interpretation Comments POC-GLUCOSE METER 105 mg/dL 70-110 : TESTED A T [facility] [address] (BEAKER) (test code [address], = 1538) [place] [address]: Nursery Supervisor/Techni seble ID = [id number] for Ali, Fabiano POCT-GLUCOSE [id number] 12:03:00 Test Item Value Reference Range Interpretation Comments POC-GLUCOSE METER 96 mg/dL 70-110 : TESTED A T [address] (BEAKER) (test code = [address], [address]) [place] [address]: Nursery Supervisor/Techni seble ID = [id number] for Ali, Fabiano POCT-GLUCOSE [id number] 08:42:00 Test Item Value Reference Range Interpretation Comments POC-GLUCOSE METER 102 mg/dL 70-110 : TESTED A T [address] (BEAKER) (test code [address], = 1538) [place] [address] 478: Nursery Supervisor/Techni seble ID = [id number] for Ali, Fabiano Blood Culture - Routine (Right Venipuncture)2020-07-19 01:00:00 Test Item Value Reference Range Interpretation Comments Result (test code = No growth in 5 days 6463-4) [facility] [id number] 01:00:00 Test Item Value Reference Range Interpretation Comments CULTURE (BEAKER) (test No growth in 5 days code = 1095) BLOOD [id number] 01:00:00 Test Item Value Reference Range Interpretation Comments CULTURE (BEAKER) (test No growth in 5 days code = 1095) POCT-GLUCOSE [id number] 17:23:00 Test Item Value Reference Range Interpretation Comments POC-GLUCOSE METER 92 mg/dL 70-110 : Notified RN/MD: TESTED (BEAKER) (test code = AT [address]) [facility] [address]: Nursery Supervisor/Techni seble ID = [id number] for Arenjese Aiden hamiltonbenjamínalexi SARS-CoV2/RT-PCR (Asymptomatic ONLY)2020-07-18 15:52:00 Test Item Value Reference Range Interpretation Comments SARS-COV2/RT-PCR Negative Not Detected, Performanc e of the Xpert (test code = Negative, See Xpress 10846-1) external report SARS-CoV-2/F carlito/RSV test for linked test has only bee n established in nasopharyngeal swab specimens. Use of the Xpert Xpress SARS-CoV-2/Flu/ RSV test with other spec imen types has not b een assessed and pe rformance characteristics are unknown. As wi th any molecular test, mutations withi n the targeted geneti c regions identified by t he Xpert Xpress SARS-CoV-2/Flu/ RSV test could affect pr marquis and/or probe bi nding resulting in fa ilure to detect the pres ence of virus or the vi hillary being detected less predictably.Neg ative results do not preclude SARS-CoV-2, Inf luenza A/B, or RSV inf ection and should not be used as the sole bas is for treatment or ot her patient managem ent decisions. Res ults from the Xpert Xpres s SARS-CoV-2/Flu/ RSV test should be corre lated with the clinic al history, epidem iological data, and other data available to th e clinician evalu ating the patient. Inval id test results may occ ur from improper specim en collection; thelma lure to follow the sid mmended sample collecti on, handling, and s torage procedures; delonte hnical error. False ne gative results may occ ur if virus is presen t at levels below th e analytical limi t of detection (LOD: 131 copies/mL). Vi ral nucleic acid ma y persist in vivo, indepe ndent of virus viability . Detection of an alyte target(s) does not imply that the corres ponding virus(es) are i nfectious or are the caus ative agents for clin ical symptoms. Rece nt patient exposur e to FluMist or ot her live attenuated infl uenza vaccines may ca use inaccurate posi tive results.This te st has been authorized by FDA under an EUA fo r use by authorized labo ratories. This test is o nly authorized for the duration of the declaration aren t circumstances e xist justifying the authorization o f emergency use o f in vitro diagnosti c tests for detection a nd/or diagnosis of CO VID-19 under Section 5 64(b)(1) of the Federal Food, Drug and Cosmet ic Act, 21 U.S.C. 360bbb-3(b)(1), unless the authorizati on is terminated or r evoked sooner. Fact Sh eet for Healthcare Prov iders: https://www.WineDemon/ Documents/Xpert %20Xpress %83MCHQ-TkI-4-F carlito-RSV/30 2-4508%20Rev.%2 0B%20HCP% 20Fact%20Sheet. pdf Fact Sheet for Healt hcare Patients: https://www.WineDemon/ Documents/Xpert %20Xpress %88RFDW-MqN-8-F carlito-RSV/30 2-4507%20Rev.%2 0B%20Pati ent%20Fact%20Sh eet.pdf SARS-COV-2 SLSL Performed at:[facility] PERFORMING LAB Lorie Saez [id number] (test code = Lucas Cabrera [address]-6) [place] [address] ph: [phone] [facility])2020-07-18 15:52:00 Test Item Value Reference Range Interpretation Comments SARS-COV2/RT-PCR Negative Not Detected, Performanc e of the Xpert (test code = Negative, See Xpress [id number]) external report SARS-CoV-2/F carlito/RSV test for linked test has only bee n established in nasopharyngeal swab specimens. Use of the Xpert Xpress SARS-CoV-2/Flu/ RSV test with other spec imen types has not b een assessed and pe rformance characteristics are unknown. As wi th any molecular test, mutations withi n the targeted geneti c regions identified by t he Xpert Xpress SARS-CoV-2/Flu/ RSV test could affect pr marquis and/or probe bi nding resulting in fa ilure to detect the pres ence of virus or the vi hillary being detected less predictably.Neg ative results do not preclude SARS-CoV-2, Inf luenza A/B, or RSV inf ection and should not be used as the sole bas is for treatment or ot her patient managem ent decisions. Res ults from the Xpert Xpres s SARS-CoV-2/Flu/ RSV test should be corre lated with the clinic al history, epidem iological data, and other data available to th e clinician evalu ating the patient. Inval id test results may occ ur from improper specim en collection; thelma lure to follow the sid mmended sample collecti on, handling, and s torage procedures; delonte hnical error. False ne gative results may occ ur if virus is presen t at levels below th e analytical limi t of detection (LOD: 131 copies/mL). Vi ral nucleic acid ma y persist in vivo, indepe ndent of virus viability . Detection of an alyte target(s) does not imply that the corres ponding virus(es) are i nfectious or are the caus ative agents for clin ical symptoms. Rece nt patient exposur e to FluMist or oth er live attenuated infl uenza vaccines may ca use inaccurate posi tive results.This te st has been authorized by FDA under an EUA fo r use by authorized labo ratories. This test is o nly authorized for the duration of the declaration aren t circumstances e xist justifying the authorization o f emergency use o f in vitro diagnosti c tests for detection a nd/or diagnosis of CO VID-19 under Section 5 64(b)(1) of the Federal Food, Drug and Cosmet ic Act, 21 U.S.C. 360bbb-3(b)(1), unless the authorizati on is terminated or r evoked sooner.Fact She et for Healthcare Prov iders: https://www.Expreem.daPulse/ Documents/Xpert %20Xpress %75VDZK-MnB-8-F carlito-RSV30 2-4508%20Rev.%2 0B%20HCP% 20Fact%20Sheet. pdfFact Sheet for Healt hcare Patients: https://www.Expreem.daPulse/ Documents/Xpert %20Xpress %85ZKFG-BqD-7-F carlito-RSV/30 2-4507%20Rev.%2 0B%20Pati ent%20Fact%20Sh eet.pdf SARS-COV-2 SLSL Performed at:[facility] PERFORMING LAB [place] [id number] (test code = Juan Casimiro [address]rera [id number]) [place] [address] ph: [phone] POCT-GLUCOSE [id number] 12:10:00 Test Item Value Reference Range Interpretation Comments POC-GLUCOSE METER 94 mg/dL 70-110 : TESTED A T [address] 1317 (BEAKER) (test code = [address]) [place] [address]: Nursery Supervisor/Techni seble ID = [id number] for Thak er, Nikitaben POCT-GLUCOSE [id number] 08:28:00 Test Item Value Reference Range Interpretation Comments POC-GLUCOSE METER 79 mg/dL 70-110 : Notified RN/MD: TESTED (BEAKER) (test code = AT [address] L [address]) [place] [id number]: Nursery Supervisor/Techni seble ID = [id number] for Thak er, Nikitaben POCT-GLUCOSE [id number] 21:42:00 Test Item Value Reference Range Interpretation Comments POC-GLUCOSE METER 123 mg/dL 70-110 H : TESTED A T SLSL 1317 (BEAKER) (test code [address] [facility], = 1538) [place] [address]: Nursery Supervisor/Techni seble ID = [id number] for Breann Gaona POCT-GLUCOSE [id number] 18:04:00 Test Item Value Reference Range Interpretation Comments POC-GLUCOSE METER 100 mg/dL 70-110 : TESTED A T [address]SL 1317 (BEAKER) (test code [address] [facility], = 1538) [place] [address]: Nursery Supervisor/Techni seble ID = [id number] for Carole Rosarioa PROTHROMBIN TIME/[id number] 13:13:00 Test Item Value Reference Range Interpretation Comments PROTIME (BEAKER) 29.1 seconds 9.3-12.0 H Final Infor mation (test code = 759) (Auto Outp ut) INR (BEAKER) (test 2.78 See_Comment Final Inf ormation code = 370) (Auto Output) [Automated mess age] The system Stylistpick generated this result transmitted ref erence range: <=5.90. The reference range was not used to int erpret this result as normal/abnormal . RECOMMENDED COUMADIN/WARFARIN INR THERAPY RANGESSTANDARD DOSE: 2.0 - 3.0 Includes: PROPHYLAXIS forvenous thrombosis, systemic embolization; TREATMENT for venous thrombosis and/or pulmonary embolus.HIGH RISK: Target INR is 2.5-3.5 for patients with mechanical heart valves.POCT-GLUCOSE [id number] 11:34:00 Test Item Value Reference Range Interpretation Comments POC-GLUCOSE METER 118 mg/dL 70-110 H : TESTED A Philip [facility] 131Phylicia (SUSANNA) (test code [address], = 1538) [facility] 77 [address]: Nursery Supervisor/Techni seble ID = [id number] for Nacho hSalena RAD, CHEST, 1 VIEW, NON [id number] 10:14:00Reason for exam:->eval effusionsShould this be performed at the bedside?->Yes [facility] 1945 Sex: FFINAL REPORT History: Pleural effusions. FINDINGS: Compared with July 16, 2020, the heart and mediastinum are stable. As before, the heart is mildly enlarged. Small bilateral pleural effusions are suspected. More focal opacity is present in the lung bases, possibly atelectasis or pneumonia. No pneumothorax. Bones are unremarkable. IMPRESSION: 1. Small bilateral pleural effusions suspected. More focal opacity in the lung bases may represent atelectasis or pneumonia. Signed: Chelsey Caldera Verified Date/Time: 07/17/2020 10:14:33 Reading Location: [facility] Radiology Reading Room POCT-GLUCOSE METER 2020-07-17 09:26:00 Test Item Value Reference Range Interpretation Comments POC-GLUCOSE METER 88 mg/dL 70-110 : TESTED A T [facility] [address]17 (BEAKER) (test code = [address], 1538) [facility] 77 478: Nursery Supervisor/Techni seble ID = [id number] for Salena Rosario COMPREHENSIVE METABOLIC [id number] 06:14:00 Test Item Value Reference Range Interpretation Comments TOTAL PROTEIN 6.1 gm/dL 6.0-8.5 (BEAKER) (test code = 770) ALBUMIN (BEAKER) 2.4 g/dL 3.5-5.0 L (test code = 1145) ALKALINE PHOSPHATASE 174 U/L 30-115 H (BEAKER) (test code = 346) BILIRUBIN TOTAL 1.2 mg/dL 0.1-1.2 (BEAKER) (test code = 377) SODIUM (BEAKER) (test 136 meq/L 135-148 code = 381) POTASSIUM (BEAKER) 3.5 meq/L 3.6-5.5 L (test code = 379) CHLORIDE (BEAKER) 103 meq/L 98-106 (test code = 382) CO2 (BEAKER) (test 25 meq/L 20-29 code = 355) BLOOD UREA NITROGEN 15 mg/dL 10-26 (BEAKER) (test code = 354) CREATININE (BEAKER) 0.74 mg/dL 0.50-1.20 (test code = 358) GLUCOSE RANDOM 97 mg/dL 70-110 (BEAKER) (test code = 652) CALCIUM (BEAKER) 8.1 mg/dL 8.5-10.5 L (test code = 697) AST (SGOT) (BEAKER) 52 U/L 5-40 H (test code = 353) ALT (SGPT) (BEAKER) 12 U/L 5-50 (test code = 347) EGFR (BEAKER) (test INSUFFIC IENT CLINICAL code = 1092) DATA TO CALCULA TE ESTIMATED GFR. Nursery Supervisor ID - JUSTINOperator ID - JUSTINOperator ID - JUSTINOperator ID - JUSTINOperator ID - JUSTINOperator ID - JUSTINOperator ID - JUSTINOperator ID - JUSTINOperator ID - JUSTINOperator ID - JUSTINOperator ID - JUSTINOperator ID - JUSTINOperator ID - JUSTINOperator ID - JUSTINOperator ID - JUSTINOperator ID - [id number] 06:13:00 Test Item Value Reference Range Interpretation Comments MAGNESIUM (BEAKER) (test code = 1.6 mg/dL 1.5-3.0 627) Nursery Supervisor ID - JUSTINOperator ID - JUSTINOperator ID - JUSTINOperator ID - FABRICIO CBC W/PLT COUNT & AUTO [id number] 05:47:00 Test Item Value Reference Range Interpretation Comments WHITE BLOOD CELL COUNT (BEAKER) 5.8 K/ L 4.0-10.0 (test code = 775) RED BLOOD CELL COUNT (BEAKER) 3.25 M/ L 4.00-5.00 L (test code = 761) HEMOGLOBIN (BEAKER) (test code = 11.6 GM/DL 12.0-15.5 L 410) HEMATOCRIT (BEAKER) (test code = 34.9 % 36.0-46.0 L 411) MEAN CORPUSCULAR VOLUME (BEAKER) 107.4 fL 82.0-99.0 H (test code = 753) MEAN CORPUSCULAR HEMOGLOBIN 35.7 pg 27.0-33.0 H (BEAKER) (test code = 751) MEAN CORPUSCULAR HEMOGLOBIN CONC 33.2 GM/DL 32.0-36.0 (BEAKER) (test code = 752) RED CELL DISTRIBUTION WIDTH 16.1 % 12.0-15.0 H (BEAKER) (test code = 412) PLATELET COUNT (BEAKER) (test 146 K/CU MM 150-430 L code = 756) MEAN PLATELET VOLUME (BEAKER) 10.1 fL 6.0-11.5 (test code = 754) NUCLEATED RED BLOOD CELLS 0 /100 WBC 0-0 (BEAKER) (test code = 413) NEUTROPHILS RELATIVE PERCENT 60 % (BEAKER) (test code = 429) LYMPHOCYTES RELATIVE PERCENT 19 % (BEAKER) (test code = 430) MONOCYTES RELATIVE PERCENT 16 % (BEAKER) (test code = 431) EOSINOPHILS RELATIVE PERCENT 4 % (BEAKER) (test code = 432) BASOPHILS RELATIVE PERCENT 1 % (BEAKER) (test code = 437) NEUTROPHILS ABSOLUTE COUNT 3.49 K/ L 1.80-8.00 (BEAKER) (test code = 670) LYMPHOCYTES ABSOLUTE COUNT 1.09 K/ L 1.48-4.50 L (BEAKER) (test code = 414) MONOCYTES ABSOLUTE COUNT (BEAKER) 0.96 K/ L 0.00-1.30 (test code = 415) EOSINOPHILS ABSOLUTE COUNT 0.21 K/ L 0.00-0.50 (BEAKER) (test code = 416) BASOPHILS ABSOLUTE COUNT (BEAKER) 0.03 K/ L 0.00-0.20 (test code = 417) IMMATURE GRANULOCYTES-RELATIVE 1 % 0-0 H PERCENT (BEAKER) (test code = 2801) VANCOMYCIN LEVEL, [id number] 23:24:00 Test Item Value Reference Range Interpretation Comments VANCOMYCIN TROUGH (BEAKER) (test 7.8 ug/mL 10.0-20.0 L code = 522) Nursery Supervisor ID - JUSTINPOCT-GLUCOSE [id number] 20:03:00 Test Item Value Reference Range Interpretation Comments POC-GLUCOSE METER 130 mg/dL 70-110 H : TESTED A T [facility] [address] (BEAKER) (test code [address], = 1538) [place] [id number]: Nursery Supervisor/Techni seble ID = [id number] for Angelique Rodriguez POCT-GLUCOSE [id number] 15:31:00 Test Item Value Reference Range Interpretation Comments POC-GLUCOSE METER 138 mg/dL 70-110 H : TESTED A T [facility] [address] (BEAKER) (test code [address], = 1538) [place] [address]: Nursery Supervisor/Techni seble ID = [id number] for Idalia Russo RAD, CHEST, 1 VIEW, NON [id number] 13:56:00Reason for exam:->chf - eval effusionsShould this be performed at the bedside?->[facility] 1945 Sex: FFINAL REPORT TECHNIQUE: Frontal view of the chest. INDICATION: chf - eval effusions COMPARISON:Prior day. DISCUSSION:Limited evaluation due to portable technique. Lines and hardware: Overlying EKG leads are notedHeart and mediastinum: Cardiomediastinal silhouette is enlarged with vascular congestive changes centrally.Lungs and pleura: Interstitial markings are prominent. Qu estionable trace effusions are noted. Negative for lobar consolidation. Negative for large pneumothorax.Soft tissues and bones: No acute abnormality. IMPRESSION:Cardiomegaly with central vascular congestive changes and mild interstitial edema. Questionable trace effusions are noted at the lung bases. S igned: Alonso Ta MDReport Verified Date/Time: 07/16/2020 13:56:43 Reading Location: [facility] Radiology Reading Room POCT-GLUCOSE [id number] 11:49:00 Test Item Value Reference Range Interpretation Comments POC-GLUCOSE METER 100 mg/dL 70-110 : TESTED A T [facility] [address] (BEAKER) (test code [address], = 1538) [facility] [address]: Nursery Supervisor/Techni seble ID = [id number] for Nieves cruzIdalia POCT-GLUCOSE [id number] 07:18:00 Test Item Value Reference Range Interpretation Comments POC-GLUCOSE METER 90 mg/dL 70-110 : TESTED A T [facility] [address] (BEAKER) (test code = [address], [address]) [facility] [address]: Nursery Supervisor/Techni seble ID = [id number] for Nieves rcuzIdalia COMPREHENSIVE METABOLIC [id number] 06:03:00 Test Item Value Reference Range Interpretation Comments TOTAL PROTEIN 6.6 gm/dL 6.0-8.5 Specimen sligh tly (BEAKER) (test code = hemoly zed 770) ALBUMIN (BEAKER) 2.5 g/dL 3.5-5.0 L Specimen sl ightly (test code = 1145) hemolyzed ALKALINE PHOSPHATASE 175 U/L 30-115 H (BEAKER) (test code = 346) BILIRUBIN TOTAL 1.2 mg/dL 0.1-1.2 Specimen sli ghtly (BEAKER) (test code = hemoly zed 377) SODIUM (BEAKER) (test 136 meq/L 135-148 code = 381) POTASSIUM (BEAKER) 3.7 meq/L 3.6-5.5 Specimen slightly (test code = 379) hemolyzed CHLORIDE (BEAKER) 102 meq/L 98-106 (test code = 382) CO2 (BEAKER) (test 25 meq/L 20-29 code = 355) BLOOD UREA NITROGEN 20 mg/dL 10-26 (BEAKER) (test code = 354) CREATININE (BEAKER) 0.78 mg/dL 0.50-1.20 Specimen slightly (test code = 358) hemolyzed GLUCOSE RANDOM 95 mg/dL 70-110 (BEAKER) (test code = 652) CALCIUM (BEAKER) 8.1 mg/dL 8.5-10.5 L (test code = 697) AST (SGOT) (BEAKER) 55 U/L 5-40 H Specimen slightly (test code = 353) hemolyzed ALT (SGPT) (BEAKER) 11 U/L 5-50 Specimen slightly (test code = 347) hemolyzed EGFR (BEAKER) (test INSUFFIC IENT CLINICAL code = 1092) DATA TO CALCULA TE ESTIMATED GFR. Nursery Supervisor ID - LITOOperator ID - LITOOperator ID - LITOOperator ID - LITOOperator ID - LITOOperator ID - LITOOperator ID - LITOOperator ID - LITOOperator ID - LITOOperator ID - LITOOperator ID - LITOOperator ID - LITOOperator ID - LITOOperator ID - LITOOperator ID - LITOOperator ID - [id number] 06:02:00 Test Item Value Reference Range Interpretation Comments MAGNESIUM (BEAKER) 1.6 mg/dL 1.5-3.0 Specimen slightly (test code = 627) hemolyzed Nursery Supervisor ID - LITOOperator ID - LITOOperator ID - LITOOperator ID - LITOCBC W/PLT COUNT & AUTO [id number] 05:33:00 Test Item Value Reference Range Interpretation Comments WHITE BLOOD CELL COUNT (BEAKER) 6.4 K/ L 4.0-10.0 (test code = 775) RED BLOOD CELL COUNT (BEAKER) 3.30 M/ L 4.00-5.00 L (test code = 761) HEMOGLOBIN (BEAKER) (test code = 11.7 GM/DL 12.0-15.5 L 410) HEMATOCRIT (BEAKER) (test code = 35.4 % 36.0-46.0 L 411) MEAN CORPUSCULAR VOLUME (BEAKER) 107.3 fL 82.0-99.0 H (test code = 753) MEAN CORPUSCULAR HEMOGLOBIN 35.5 pg 27.0-33.0 H (BEAKER) (test code = 751) MEAN CORPUSCULAR HEMOGLOBIN CONC 33.1 GM/DL 32.0-36.0 (BEAKER) (test code = 752) RED CELL DISTRIBUTION WIDTH 16.1 % 12.0-15.0 H (BEAKER) (test code = 412) PLATELET COUNT (BEAKER) (test 167 K/CU MM 150-430 code = 756) MEAN PLATELET VOLUME (BEAKER) 10.0 fL 6.0-11.5 (test code = 754) NUCLEATED RED BLOOD CELLS 0 /100 WBC 0-0 (BEAKER) (test code = 413) NEUTROPHILS RELATIVE PERCENT 59 % (BEAKER) (test code = 429) LYMPHOCYTES RELATIVE PERCENT 20 % (BEAKER) (test code = 430) MONOCYTES RELATIVE PERCENT 16 % (BEAKER) (test code = 431) EOSINOPHILS RELATIVE PERCENT 4 % (BEAKER) (test code = 432) BASOPHILS RELATIVE PERCENT 1 % (BEAKER) (test code = 437) NEUTROPHILS ABSOLUTE COUNT 3.77 K/ L 1.80-8.00 (BEAKER) (test code = 670) LYMPHOCYTES ABSOLUTE COUNT 1.24 K/ L 1.48-4.50 L (BEAKER) (test code = 414) MONOCYTES ABSOLUTE COUNT (BEAKER) 1.00 K/ L 0.00-1.30 (test code = 415) EOSINOPHILS ABSOLUTE COUNT 0.22 K/ L 0.00-0.50 (BEAKER) (test code = 416) BASOPHILS ABSOLUTE COUNT (DIVYAAKER) 0.03 K/ L 0.00-0.20 (test code = 417) IMMATURE GRANULOCYTES-RELATIVE 2 % 0-0 H PERCENT (BEAKER) (test code = 2801) POCT-GLUCOSE [id number] 20:29:00 Test Item Value Reference Range Interpretation Comments POC-GLUCOSE METER 124 mg/dL 70-110 H : TESTED A T [facility] [address] (BEAKER) (test code [address], = 1538) [facility] [address]: Nursery Supervisor/Techni seble ID = [id number] for Angelique Rodriguez POCT-GLUCOSE [id number] 17:29:00 Test Item Value Reference Range Interpretation Comments POC-GLUCOSE METER 109 mg/dL 70-110 : Notified RN/MD: TESTED (SUSANNA) (test code AT [address] = [address]) [address], [facility] [address]: Nursery Supervisor/Techni seble ID = [id number] for Stacy Marcus 2D Echo W/Doppler(CW/PW/Color)2020-07-15 12:48:44Ejection FractionSLEH ECHO HEARTLAB MKCKESSON CPACSInterface, External Ris In - 07/15/2020 12:48 PM C DTTransthoracic Echocardiography Report (TTE) Demographics Patient Name MARA CORRALES Date of Study 07/15/2020 Gender Female Visit [id number] Race Unknown Room Number B532 Number Date of 1945 Referring Physician 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 Physician Procedure Type of Study TTE procedure:2DECHO W DOPP LER(CW/PW/COLOR) (Routine) Indications:Known or suspected heart failure.Clinical HistoryNo past medical historyHeight: 62 inches Weight: 91.17 kg (201 lbs) BSA: 1.92 m^2 BMI: 36.76 kg/m^2HR: 102 bpm BP: 102/63 mmHg Summary Technically difficult study with poor endocardial delineation. Mild concentric LVH with normal internal dimensions. Normal LV systolic function with an estimated LVEF of 55-59%. Indeterminate left ventricular filling dynamics. Normal RV size and systolic function. No evidence of pulmonary hypertension; estimated PA systolic pressure of 24 mm Hg, assuming an RA pressure of 3 mm Hg. No pericardial effusion. No previous study to compare from. Signature Findings Left Ventricle Mild concentric LV hypertrophy. Left ventricular size is normal. All segments contract normally. Normal overall left ventricular systolic function. The visual ejection fraction was estimated 55- 59 %. Indeterminate left ventricular filling dynamics. Left Atrium The left atrium is not well visualized. The left atrium appears normal. Right Ventricle The right ventricular chamber size and systolic function are within normal limits. Right Atrium RA size is normal. Aortic ValveThe aortic valve is not well visualized, but appears normal. There is no aortic stenosis. There is no aortic regurgitation. Mitral Valve Normal MV structure. Trace mitral regurgitation. Tricuspid Valve TV structure is normal. Mild tricuspid regurgitation. Estimated peak systolic PA pressure is 20-25 mmHg (normal range) . P ulmonic Valve No evidence of pulmonary regurgitation. Aorta Aortic root size (SInus of Valsalva diameter) is borderline dilated . Pericardium No pericardial effusion is visualized. IVC/SVC/PA/PV/Pleural The inferior vena cava size is normal . Chambers/Structures Left Atrium LA Dimension: 4.16 cm LA Area: 20.28 cm^2 LA Volume: 55.85 ml LA Vol. Index: 29 ml/m^2 Left Ventricle LVIDd: 3.41 cm LVEDV:47.7 ml LVIDs: 2.24 cm LVESV:16.99 ml LV Septum Diastolic:1.46 cm LV Septum Systolic: 1.84 cm LV Length: 7.13 cm LV PW Diastolic: 1.34 cm LV FS: 34.3 % LV PW Systolic: 1.47 cm LVOT Diameter: 1.99 cm LVEF: 64.4 % Right Atrium RA Systolic Pressure: 10 mmHg Right Ventricle RV Systolic Pressure: 26.56 mmHg Aorta Ao Root S of Shaylee.: 2.43 cm Doppler/Quantitative Measurements Mitral Valve MV Peak E-Wave: 1.11 m/s MV Peak A-Wave: 0.17 m/s P1/2t: 60.6 msec E/A Ratio: 6.61 Peak Velocity: 1.1 m/s Peak Gradient: 4.94 mmHg Mean Velocity: 0.42 m/s Deceleration Time: 224 msec Mean Gradient: 1.25 mmHg Area (continuity): 2.41 cm^2 MV Area(PHT): 3.63 cm^2 MV VTI: 25.27 cm MV Cl. Peak: Tissue Doppler E' Septal Velocity: 0.07 m/s E' Lateral Velocity: 0.1 m/s Aortic Valve Peak Velocity: 1.64 m/s Mean Velocity: 1.05 m/s Peak Gradient: 10.76 mmHg Mean Gradient: 5.21 mmHg AV Area (continuity): 2.12 cm^2 AV VTI: 28.75 cm Cusp Separation: 1.04 cm AV DVI: 0.68 LVOTPeak Velocity: 1 m/s Peak Gradient: 4.02 mmHg Mean Velocity: 0.57 m/s Mean Gradient: 1.68 mmHg LVOT Diameter: 1.99 cm LVOT VTI: 19.57 cm LVOT Area: 3.11 cm^2 LVOT SV:60.84 ml LVOT CO: 6.21 l/min LVOT CI: 3.23 l/min/m^2 Tricuspid Valve Estimated RVSP: 26.71 mmHg Estimated RAP: 10 mmHg TR Velocity: 2.04 m/s TR Gradient: 16.56 mmHg Pulmonic Valve Peak Velocity: 1.36 m/s Peak Gradient: 7.36 mmHg Estimated PASP: 26.56 mmHgCHI [facility]City [facility] CenterCT-GLUCOSE [id number] 12:27:00 Test Item Value Reference Range Interpretation Comments POC-GLUCOSE METER 89 mg/dL 70-110 : Notified RN/MD: TESTED (SUSANNA) (test code = [place] [address]) [facility] [address]: Nursery Supervisor/Techni seble ID = [id number] for Stacy Marcus TSH/Free T4 If [id number] 12:18:00 Test Item Value Reference Range Interpretation Comments TSH (test code = 2.660 See_Comment [Automated 88915-5) message] The system which generated this result transmit zafar reference range : 0.350 - 5.500 uIU/mL. The reference range was not used to interpret this result as normal/abnormal . ISELA (test code = ISELA) Nursery Supervisor ID - [id number] Lab Interpretation Normal (test code = 02130-5) [facility] T[facility] [id number] 12:18:00 Test Item Value Reference Range Interpretation Comments THYROID STIMULATING HORMONE 2.660 uIU/mL 0.350-5.500 (BEAKER) (test code = 772) Nursery Supervisor ID - [id number] Natriuretic Factor (BNP)2020-07-15 10:45:00 Test Item Value Reference Range Interpretation Comments BNP (test code = 99987-9) 411 pg/mL 0-100 H ISELA (test code = ISELA) Nursery Supervisor ID - [id number] Lab Interpretation (test Abnormal code = 35781-3) [facility] (BNP)2020-07-15 10:45:00 Test Item Value Reference Range Interpretation Comments B-TYPE NATRIURETIC PEPTIDE (BEAKER) 411 pg/mL 0-100 H (test code = 700) Nursery Supervisor ID - [id number] METABOLIC [id number] 10:45:00 Test Item Value Reference Range Interpretation Comments SODIUM (BEAKER) (test 134 meq/L 135-148 L code = 381) POTASSIUM (BEAKER) 4.0 meq/L 3.6-5.5 (test code = 379) CHLORIDE (BEAKER) 98 meq/L 98-106 (test code = 382) CO2 (BEAKER) (test 27 meq/L 20-29 code = 355) BLOOD UREA NITROGEN 21 mg/dL 10-26 (BEAKER) (test code = 354) CREATININE (BEAKER) 0.83 mg/dL 0.50-1.20 (test code = 358) GLUCOSE RANDOM 234 mg/dL 70-110 H (BEAKER) (test code = 652) CALCIUM (BEAKER) 8.2 mg/dL 8.5-10.5 L (test code = 697) EGFR (BEAKER) (test INSUFFIC IENT CLINICAL code = 1092) DATA TO CALCULA TE ESTIMATED GFR. Nursery Supervisor ID - [id number] ID - [id number] ID - [id number] ID - [id number] ID - [id number] ID - [id number] ID - [id number] ID - [id number] ID - [id number] ID - [id number] ID - [id number] ID - [id number] ID - [id number] [id number] 10:35:00 Test Item Value Reference Range Interpretation Comments PROTIME (BEAKER) 25.7 seconds 9.3-12.0 H Final Infor mation (test code = 759) (Auto Outp ut) INR (BEAKER) (test 2.43 See_Comment Final Inf ormation code = 370) (Auto Output) [Automated mess age] The system Stylistpick generated this result transmitted ref erence range: <=5.90. The reference range was not used to int erpret this result as normal/abnormal . RECOMMENDED COUMADIN/WARFARIN INR THERAPY RANGESSTANDARD DOSE: 2.0 - 3.0 Includes: PROPHYLAXIS forvenous thrombosis, systemic embolization; TREATMENT for venous thrombosis and/or pulmonary embolus.HIGH RISK: Target INR is 2.5-3.5 for patients with mechanical heart valves.POCT-GLUCOSE [id number] 08:35:00 Test Item Value Reference Range Interpretation Comments POC-GLUCOSE METER 87 mg/dL 70-110 : Notified RN/MD: TESTED (BEAKER) (test code = [address]) [facility] [address]: Nursery Supervisor/Techni seble ID = [id number] for Puja hamilton Pillokwasi CBC (Hemogram only)2020-07-15 07:10:00 Test Item Value Reference Range Interpretation Comments WBC (test code = 6690-2) 6.1 See_Comment [A utomated message] The system Stylistpick generated this result transmitted ref erence range: 4.0 - 10 .0 K/L. The refe rence range was not u sed to interpret this result as normal/abnor mal. RBC (test code = 789-8) 3.64 See_Comment L [Au tomated message] The system Stylistpick generated this result transmitted ref erence range: 4.00 - 5 .00 M/L. The refe rence range was not u sed to interpret this result as normal/abnor mal. MCHC (test code = 786-4) 33.7 See_Comment [A utomated message] The system Stylistpick generated this result transmitted ref erence range: 32.0 - 3 6.0 GM/DL. The refe rence range was not u sed to interpret this result as normal/abnor mal. Hematocrit (test code = 39.2 % 36-46 4544-3) MCV (test code = 787-2) 107.7 fL 82-99 H MCH (test code = 785-6) 36.3 pg 27-33 H RDW (test code = 788-0) 17.2 % 12-15 H Platelets (test code = 232 See_Comment [Aut omated message] 777-3) The system Stylistpick generated this result transmitted ref erence range: 150 - 43 0 K/CU MM. The referen ce range was not u sed to interpret this result as normal/abnor mal. MPV (test code = 11.5 fL 6-11.5 01749-8) nRBC (test code = 413) 0 See_Comment [Aut omated message] The system Stylistpick generated this result transmitted ref erence range: 0 - 0 /1 00 WBC. The refere nce range was not u sed to interpret this result as normal/abnor mal. Lab Interpretation (test Abnormal code = 82977-6) [facility] (HEMOGRAM ONLY)2020-07-15 07:10:00 Test Item Value Reference Range Interpretation Comments WHITE BLOOD CELL COUNT (BEAKER) 6.1 K/ L 4.0-10.0 (test code = 775) RED BLOOD CELL COUNT (BEAKER) 3.64 M/ L 4.00-5.00 L (test code = 761) HEMOGLOBIN (BEAKER) (test code = 13.2 GM/DL 12.0-15.5 410) HEMATOCRIT (BEAKER) (test code = 39.2 % 36.0-46.0 411) MEAN CORPUSCULAR VOLUME (BEAKER) 107.7 fL 82.0-99.0 H (test code = 753) MEAN CORPUSCULAR HEMOGLOBIN 36.3 pg 27.0-33.0 H (BEAKER) (test code = 751) MEAN CORPUSCULAR HEMOGLOBIN CONC 33.7 GM/DL 32.0-36.0 (BEAKER) (test code = 752) RED CELL DISTRIBUTION WIDTH 17.2 % 12.0-15.0 H (BEAKER) (test code = 412) PLATELET COUNT (BEAKER) (test 232 K/CU MM 150-430 code = 756) MEAN PLATELET VOLUME (BEAKER) 11.5 fL 6.0-11.5 (test code = 754) NUCLEATED RED BLOOD CELLS 0 /100 WBC 0-0 (BEAKER) (test code = 413) POCT-GLUCOSE [id number] 22:13:00 Test Item Value Reference Range Interpretation Comments POC-GLUCOSE METER 98 mg/dL 70-110 : TESTED A T [facility] [address] (BEAKER) (test code = [address]) [place] [address]: Nursery Supervisor/Techni seble ID = [id number] for Edward Rice POCT-GLUCOSE [id number] 17:33:00 Test Item Value Reference Range Interpretation Comments POC-GLUCOSE METER 95 mg/dL 70-110 : TESTED A T [facility] [address] (BEAKER) (test code = [address], [address]) [place] [address]: Nursery Supervisor/Techni seble ID = [id number] for Nieves anthony, Idalia POCT-GLUCOSE [id number] 13:18:00 Test Item Value Reference Range Interpretation Comments POC-GLUCOSE METER 119 mg/dL 70-110 H : TESTED A T [facility] [address] (BEAKER) (test code [address], = 1538) [place] [address]: Nursery Supervisor/Techni seble ID = [id number] for Nieves francknicholas, Idalia RAD, HIP, 2-3 VIEWS, RIGHT, TO INCL PELVIS WHEN [id number] 10:02:00 Reason for exam:->[facility] : 1945 Sex: FFINAL REPORT RAD, HIP, 2-3 VIEWS, RIGHT, TO INCL PELVIS WHEN PERFORMED, RAD, FEMUR, MIN. 2 VIEWS, RIGHT HISTORY: pelvis fracture. COMPARISON: None IMPRESSION:1.No acute osseous abnormality of the pelvis, right hip, or right femur given limitations on the femoral radiographsfrom lack of obliquities and external radiodensities partially obscuring the right knee. 2.Mild joint space narrowing of the hips bilaterally, minimal joint space narrowing at the medial femorotibial compartment.3.Significant curvature of the visualized lower lumbar spine with asymmetric left-sided degenerative changes. Signed: Toño Velásquez Verified Date/Time: 07/14/2020 10:02:13 Reading Location: [address] Ortho Consult Reading Room RAD, FEMUR, MIN. 2 VIEWS, [id number] 10:02:00Reason for exam:->distal femur [facility] : 1945 Sex: FFINAL REPORT RAD, HIP, 2-3 VIEWS, RIGHT, TO INCL PELVIS WHEN PERFORMED, RAD, FEMUR, MIN. 2 VIEWS, RIGHT HISTORY: pelvis fracture. COMPARISON: None IMPRESSION:1.No acute osseous abnormality of the pelvis, right hip, or right femur given limitations on the femoral radiographsfrom lack of obliquities and external radiodensities partially obscuring the right knee. 2.Mild joint space narrowing of the hips bilaterally, minimal joint space narrowing at the medial femorotibial compartment.3.Significant curvature of the visualized lower lumbar spine with asymmetric left-sided degenerative changes. Signed: Toño Velásquez Verified Date/Time: 07/14/2020 10:02:13 Reading Location: [address] Ortho Consult Reading Room XR hip 2 views [id number] 10:02:00Interface, External Ris In - 07/14/2020 10:04 AM CDTFINAL REPORT RAD, HIP, 2-3 VIEWS, RIGHT, TO INCL PELVIS WHEN PERFORMED, RAD, FEMUR, MIN. 2 VIEWS, RIGHT HISTORY: pelvis fracture. COMPARISON: None IMPRESSION:1.No acute osseous abnormality of the pelvis, right hip, or right femur given limitations on the femoral radiographs from lack of obliquities and external radiodensities p artially obscuring the right knee. 2.Mild joint space narrowing of the hips bilaterally, minimal joint space narrowing at the medial femorotibial compartment.3.Significant curvature of the visualized lower lumbar spine with asymmetric left-sided degenerative changes. Signed: Toño Velásquezort Verified Date/Time: 07/14/2020 10:02:13 Reading Location: [facility] C0X Ortho Consult Reading Room [facility] California[facility] views [id number] 10:02:00 Interface, External Ris In - 07/14/2020 10:04 AM CDTFINAL REPORT RAD, HIP, 2-3 VIEWS, RIGHT, TO INCL PELVIS WHEN PERFORMED, RAD, FEMUR, MIN. 2 VIEWS, RIGHT HISTORY: pelvis fracture. COMPARISON: None IMPRESSION:1.No acute osseous abnormality of the pelvis, right hip, or right femur given limitations on the femoral radiographs from lack of obliquities and external radiodensities partially obscuring the right knee. 2.Mild joint space narrowing of the hips bilaterally, minimal joint space narrowing at the medial femorotibial compartment.3.Significant curvature of the visualized lower lumbar spine with asymmetric left-sided degenerative changes. Signed: Toño Velásquez Verified Date/Time: 07/14/2020 10:02:13 Reading Location: [address] Ortho Consult Reading [facility]POCT-GLUCOSE [id number] 08:57:00 Test Item Value Reference Range Interpretation Comments POC-GLUCOSE METER 88 mg/dL 70-110 : TESTED A T [facility] 1317 (BEAKER) (test code = [address], [address]) [facility] [id number]: Nursery Supervisor/Techni seble ID = [id number] for Nieves juáreznicholasIdalia Hepatic function [id number] 23:27:00 Test Item Value Reference Range Interpretation Comments Protein, Total (test 6.9 See_Comment [Autom ated code = 2885-2) message] The system which generated this result transmit zafar reference range : 6.0 - 8.5 gm/dL . The reference range was not u sed to interpret th is result as normal/abnormal . Albumin (test code = 2.5 g/dL 3.5-5 L 98980-6) Total Bilirubin (test 1.2 mg/dL 0.1-1.2 code = 1974-2) Bilirubin, Direct 0.7 mg/dL 0-0.4 H (test code = 1967-7) Alkaline Phosphatase 185 U/L 30-115 H (test code = 6768-6) AST (test code = 55 U/L 5-40 H 1920-8) ALT (test code = 12 U/L 5-50 1742-6) ISELA (test code = ISELA) Nursery Supervisor ID - [id number] r ID - [id number] r ID - [id number] r ID - [id number] r ID - [id number] ID - [id number] ID - [id number] Lab Interpretation Abnormal (test code = 20177-7) [facility] [id number] 23:27:00 Test Item Value Reference Range Interpretation Comments TOTAL PROTEIN (BEAKER) (test code = 6.9 gm/dL 6.0-8.5 770) ALBUMIN (BEAKER) (test code = 1145) 2.5 g/dL 3.5-5.0 L BILIRUBIN TOTAL (BEAKER) (test code 1.2 mg/dL 0.1-1.2 = 377) BILIRUBIN DIRECT (BEAKER) (test 0.7 mg/dL 0.0-0.4 H code = 706) ALKALINE PHOSPHATASE (BEAKER) (test 185 U/L 30-115 H code = 346) AST (SGOT) (BEAKER) (test code = 55 U/L 5-40 H 353) ALT (SGPT) (BEAKER) (test code = 12 U/L 5-50 347) Nursery Supervisor ID - [id number] ID - [id number] ID - [id number] ID - [id number] ID - [id number] ID - [id number] ID - [id number] 2020-07-13 23:26:00 Test Item Value Reference Range Interpretation Comments MAGNESIUM (BEAKER) (test code = 1.8 mg/dL 1.5-3.0 627) Nursery Supervisor ID - [id number] ID - [id number] ID - [id number] ID - [id number] METABOLIC [id number] 23:24:00 Test Item Value Reference Range Interpretation Comments SODIUM (BEAKER) (test 133 meq/L 135-148 L code = 381) POTASSIUM (BEAKER) 4.5 meq/L 3.6-5.5 (test code = 379) CHLORIDE (BEAKER) 103 meq/L 98-106 (test code = 382) CO2 (BEAKER) (test 22 meq/L 20-29 code = 355) BLOOD UREA NITROGEN 25 mg/dL 10-26 (BEAKER) (test code = 354) CREATININE (BEAKER) 0.86 mg/dL 0.50-1.20 (test code = 358) GLUCOSE RANDOM 108 mg/dL 70-110 (BEAKER) (test code = 652) CALCIUM (BEAKER) 9.0 mg/dL 8.5-10.5 (test code = 697) EGFR (BEAKER) (test INSUFFIC IENT CLINICAL code = 1092) DATA TO CALCULA TE ESTIMATED GFR. Nursery Supervisor ID - [id number] ID - [id number] ID - [id number] ID - [id number] ID - [id number] ID - [id number] ID - [id number] ID - [id number] ID - [id number] ID - [id number] level, [id number] 23:21:00 Test Item Value Reference Range Interpretation Comments Vancomycin Rm (test 9.2 ug/mL code = 85312-1) ISELA (test code = Reference Range: No ISELA) NormalsOperator ID - [id number] [facility]PROT[id number] 23:21:00 Test Item Value Reference Range Interpretation Comments PROTIME (BEAKER) 18.8 seconds 9.3-12.0 H Final Infor mation (test code = 759) (Auto Outp ut) INR (BEAKER) (test 1.75 See_Comment Final Inf ormation code = 370) (Auto Output) [Automated mess age] The system Stylistpick generated this result transmitted ref erence range: <=5.90. The reference range was not used to int erpret this result as normal/abnormal . RECOMMENDED COUMADIN/WARFARIN INR THERAPY RANGESSTANDARD DOSE: 2.0 - 3.0 Includes: PROPHYLAXIS forvenous thrombosis, systemic embolization; TREATMENT for venous thrombosis and/or pulmonary embolus.HIGH RISK: Target INR is 2.5-3.5 for patients with mechanical heart valves.VANCOMYCIN LEVEL, [id number] 23:21:00 Test Item Value Reference Range Interpretation Comments VANCOMYCIN RANDOM (BEAKER) (test 9.2 ug/mL code = 523) Reference Range: No NormalsOperator ID - [id number] [id number] 23:18:00 Test Item Value Reference Range Interpretation Comments Hemoglobin A1C (test code 4.8 % 4.3-6.1 = 4548-4) ISELA (test code = ISELA) Nursery Supervisor ID - [id number] Lab Interpretation (test Normal code = 34801-8) [facility] HospitalHEMOGLOBIN [id number] 23:18:00 Test Item Value Reference Range Interpretation Comments HEMOGLOBIN A1C (BEAKER) (test code = 4.8 % 4.3-6.1 368) Nursery Supervisor ID - [id number] W/PLT COUNT & AUTO [id number] 23:12:00 Test Item Value Reference Range Interpretation Comments WHITE BLOOD CELL COUNT (BEAKER) 7.1 K/ L 4.0-10.0 (test code = 775) RED BLOOD CELL COUNT (BEAKER) 3.15 M/ L 4.00-5.00 L (test code = 761) HEMOGLOBIN (BEAKER) (test code = 11.2 GM/DL 12.0-15.5 L 410) HEMATOCRIT (BEAKER) (test code = 34.0 % 36.0-46.0 L 411) MEAN CORPUSCULAR VOLUME (BEAKER) 107.9 fL 82.0-99.0 H (test code = 753) MEAN CORPUSCULAR HEMOGLOBIN 35.6 pg 27.0-33.0 H (BEAKER) (test code = 751) MEAN CORPUSCULAR HEMOGLOBIN CONC 32.9 GM/DL 32.0-36.0 (BEAKER) (test code = 752) RED CELL DISTRIBUTION WIDTH 16.1 % 12.0-15.0 H (BEAKER) (test code = 412) PLATELET COUNT (BEAKER) (test 207 K/CU MM 150-430 code = 756) MEAN PLATELET VOLUME (BEAKER) 10.2 fL 6.0-11.5 (test code = 754) NUCLEATED RED BLOOD CELLS 1 /100 WBC 0-0 H (BEAKER) (test code = 413) NEUTROPHILS RELATIVE PERCENT 64 % (BEAKER) (test code = 429) LYMPHOCYTES RELATIVE PERCENT 18 % (BEAKER) (test code = 430) MONOCYTES RELATIVE PERCENT 14 % (BEAKER) (test code = 431) EOSINOPHILS RELATIVE PERCENT 3 % (BEAKER) (test code = 432) BASOPHILS RELATIVE PERCENT 1 % (BEAKER) (test code = 437) NEUTROPHILS ABSOLUTE COUNT 4.49 K/ L 1.80-8.00 (BEAKER) (test code = 670) LYMPHOCYTES ABSOLUTE COUNT 1.27 K/ L 1.48-4.50 L (BEAKER) (test code = 414) MONOCYTES ABSOLUTE COUNT (BEAKER) 0.97 K/ L 0.00-1.30 (test code = 415) EOSINOPHILS ABSOLUTE COUNT 0.20 K/ L 0.00-0.50 (BEAKER) (test code = 416) BASOPHILS ABSOLUTE COUNT (BEAKER) 0.05 K/ L 0.00-0.20 (test code = 417) IMMATURE GRANULOCYTES-RELATIVE 1 % 0-0 H PERCENT (BEAKER) (test code = 2801) [id number] 00:00:00Ordered by an unspecified provider.[facility]
[2020-09-10 19:31] LABS: Urine Blood 3+ (Negative); Urine Glucose Negative (Negative); Urine Protein Trace (Negative); Urine pH 5.5 (5.0-7.0)
[2020-09-10 19:43] LABS: Absolute Lymphocytes (CBC) 1.8 K/uL (0.7-4.9); Hematocrit 31.4 % (36.0-45.0); Lymphocytes % 18.7 % (15.3-44.8); MPV 9.4 fL (7.6-11.3); RBC Red Blood Cell Count 3.08 M/uL (3.86-4.86)
[2020-09-10 20:03] LABS: Blood Morphology Comment NOT SEEN (NOT SEEN); Platelet Estimate DECR; White Blood Cell Scan OK (OK)
[2020-09-10 20:04] LABS: Albumin 1.7 g/dL (3.4-5.0); Bilirubin Direct 1.9 mg/dL (0-0.2); Magnesium 2.1 mg/dL (1.8-2.4); Potassium 4.2 mmol/L (3.5-5.1); Protein, Total 5.7 g/dL (6.4-8.2); Troponin (Emerg Dept Use Only) 0.18 ng/mL (0.0-0.045)
[2020-09-10 20:04] LABS: Urine Bacteria <20 /HPF (<20); Urine RBC TNTC /HPF (NONE SEEN)
[2020-09-10 20:05] LABS: Urine Yeast PRESENT (NONE SEEN); Urine Yeast with Hyphae PRESENT
[2020-09-10 20:17] LABS: Protime INR 2.05
--- NOTE | 2020-09-10 21:00 | RAD REPORT ---
EXAM DESCRIPTION: Mervat Single View09/10/2020 7:43 pm CLINICAL HISTORY: Shortness of breath COMPARISON: none FINDINGS: Small right pleural effusion. Lungs appear clear of acute infiltrate. Heart is mildly to moderately enlarged
[2020-09-10] MEDS ORDERED: PANTOPRAZOLE 40 MG INJ ONE (21:05)
[2020-09-10] MEDS ORDERED: CEFTRIAXONE/SWI 1gm 1 GM/10 ML SYR ONE (21:05)
[2020-09-10] MEDS ORDERED: NA CHLORIDE 0.9% 250 ML ONE (21:05)
[2020-09-10] MEDS ORDERED: NA CHLORIDE 0.9% 500 ML ONE ×2 (21:05→22:11)
--- NOTE | 2020-09-10 21:08 | RAD REPORT ---
EXAM DESCRIPTION: CT - Abdomen Pelvis Wo Contrast - 09/10/2020 8:54 pm CLINICAL HISTORY: Elevated liver enzymes. Abdominal pain COMPARISON: None TECHNIQUE: Computed axial tomography of the abdomen and pelvis was obtained. IV and oral contrast we re not requested. All CT scans are performed using dose optimization technique as appropriate and may include automated exposure control or mA/KV adjustment according to patient size. FINDINGS: The evaluation of solid organs, vessels and bowel is limited secondary to the lack of con trast administration. Small right pleural effusion. Liver has a nodular contour. Spleen, pancreas, and adrenals appear grossly normal. Bilateral renal cysts. Some are dense indicative of proteinaceous material. The cysts vary in size fr om 1-2 centimeters. There is no evidence of diverticulitis. Small amount of ascites. Diffuse edema within the subcutaneou s tissue most prominent right laterally. Spondylosis involves lumbar spine resulting in spinal stenos is IMPRESSION: Small right pleural effusion Small amount ascites Nodular contour to the liver probably indicating chronic disease
[2020-09-10] MEDS ORDERED: OCTREOTIDE ACETATE 100 MCG/ML ONE (22:10)
--- NOTE | 2020-09-10 22:46 | ER ---
Nurse's Notes [facility] Name: Nela Handy Age: 75 yrs Sex: Female : 1945 Arrival Date: 09/10/2020 Time: 19:21 Bed 6 Private MD: Diagnosis: Gastrointestinal hemorrhage, unspecified;Other cirrhosis of liver;Urinary tract infection, site not specified Presentation: 09/10 19:22 Chief complaint: EMS states: Reports pt coming from healthcare facility nurse ea reported pt is a and o x 1 but has seemed more confused than usual they also noted dark tarry stools and hypotension. Coronavirus screen: At this time, the client does not indicate any symptoms associated with coronavirus-19. Ebola Screen: No symptoms or risks identified at this time. Initial Sepsis Screen: Does the patient meet any 2 criteria? No. Patient's initial sepsis screen is negative. Does the patient have a suspected source of infection? No. Patient's initial sepsis screen is negative. Risk Assessment: Do you want to hurt yourself or someone else? Patient reports no desire to harm self or others. Onset of symptoms was September 10, 2020. 19:22 Method Of Arrival: EMS: [facility] ea 19:22 Acuity: ANNE 3 ea Triage Assessment: 19:57 General: Appears in no apparent distress. Behavior is appropriate for age. Pain: Unable ea to use pain scale. Patient appears quiet. Neuro: Level of Consciousness is awake, alert, Oriented to person. Respiratory: Airway is patent Respiratory effort is even, unlabored, Respiratory pattern is regular, symmetrical. Derm: Rash noted that is itchy, red, on back, buttocks, chest, abdomen, pelvis, right arm, left arm, right leg and left leg. Historical: - Allergies: 20:06 PENICILLINS; ea - Home Meds: 20:06 amiodarone 200 mg Oral tab [Active]; buspirone 15 mg Oral tab [Active]; digoxin 125 mcg ea Oral tab 1 tab once daily [Active]; furosemide 20 mg oral tab [Active]; Lovenox 80 mg/0.8 mL subcutaneous syrg every 12 hours [Active]; potassium chloride 20 mEq Oral TbER 1 tab 2 times per day [Active]; famotidine 20 mg Oral tab [Active]; Eliquis 5 mg oral tab [Active]; warfarin 5 mg Oral tab [Active]; - PMHx: 20:06 CHF; CVA; Hypertension; COPD; paroxysmal a fib; ea - Immunization history:: Adult Immunizations up to date. - Social history:: Smoking status: Patient denies any tobacco usage or history of. Screenin:56 Abuse screen: Denies threats or abuse. Nutritional screening: No deficits noted. ea Tuberculosis screening: No symptoms or risk factors identified. Fall Risk None identified. Assessment: 19:58 Reassessment: see triage assessment. ea 20:42 Reassessment: Patient appears in no apparent distress at this time. No changes from ad5 previously documented assessment. 20:55 Reassessment: Daughter: Marc Washington [phone]. ad5 21:30 Reassessment: Patient appears in no apparent distress at this time. No changes from ad5 previously documented assessment. Patient and/or family updated on plan of care and expected duration. Pain level reassessed. Patient denies pain at this time. 23:04 Reassessment: Patient appears in no apparent distress at this time. No changes from ad5 previously documented assessment. 09/11 00:00 Reassessment: No changes from previously documented assessment. Patient and/or family ad5 updated on plan of care and expected duration. Pain level reassessed. Pt repositioned for comfort. Bed remains low and locked, bedrails x 2, call light within reach. Pt pulling at monitor cords, reoriented to plan of care. Will continue to monitor. 01:00 Reassessment: Patient appears in no apparent distress at this time. No changes from ad5 previously documented assessment. 02:00 Reassessment: Pt resting comfortably in stretcher, provided warm blanket. Resp ad5 even/unlabored. VSS. NAD noted, will continue to monitor. Vital Signs: 09/10 19:22 BP 146 / 92; Pulse 58; Resp 18; Temp 97.6; Pulse Ox 95% on 2 lpm NC; ea 20:42 BP 101 / 67; Pulse 59; Resp 18 S; Pulse Ox 94% on NC; ad5 22:21 BP 101 / 67; Pulse 55; Resp 16 S; Pulse Ox 96% on R/A; ad5 09/11 00:30 BP 104 / 68; Pulse 69; Resp 18 S; ad5 02:12 BP 115 / 95; Pulse 52; Resp 18 S; Pulse Ox 96% ; ad5 ED Course: 09/10 19:21 Patient arrived in ED. ar5 19:21 Matt Shabazz PA is PHCP. cp 19:21 Franc Millan MD is Attending Physician. cp 19:40 First set of blood cultures drawn by me, Second set of blood cultures drawn by me. ad5 Maintain EMS IV. Dressing intact. Good blood return noted. Site clean \T\ dry. Gauge \T\ site: 20g R wrist. 19:43 XRAY Chest (1 view) In Process Unspecified. EDMS 19:49 Vandana Sultana, YAMILEX is Primary Nurse. ld1 19:56 Triage completed. ea 19:56 Arm band placed on right wrist. Patient placed in an exam room, on a stretcher, on ea pulse oximetry. 19:56 Patient has correct armband on for positive identification. Bed in low position. Call ea light in reach. Side rails up X2. 20:01 Inserted saline lock: 22 gauge in right antecubital area, using aseptic technique. ad5 Blood collected. 20:25 Notified Nurse Practitioner and/or Physician Carpenter Assistant of a critical lab result(s), bb Lactate of 2.4. Matt RUBY notified. 20:54 CT Abd/Pelvis - Without Contrast In Process Unspecified. EDMS 21:20 Initiated transfer to [facility], spoke with Michaela Rodriguez. ar5 21:25 [facility] declined the transfer due to no capacity. ar5 21:25 Initiated transfer to [facility] spoke with Giovanni. ar5 21:51 [facility] declined due to being at capacity. ar5 21:54 Initiated transfer to [facility]. ar5 21:55 [facility] declined transfer due to no capacity. ar5 22:12 Initiated transfer to [facility] spoke with Serjio. ar5 22:41 Initiated transfer to [facility] spoke with Parul. ar5 22:52 [facility] declined the transfer due to no capacity. ar5 23:16 Marc Washington . ar5 23:29 [facility] declined transfer due to no capacity. ar5 09/11 00:01 Initiated transfer to [facility] spoke with Jocelin. ar5 00:06 [facility] declined transfer due to no capacity. ar5 01:05 Stephen Fox MD is Hospitalizing Provider. cp 02:00 Inserted saline lock: 24 gauge in right hand, using aseptic technique. ea 02:24 No provider procedures requiring assistance completed. Patient admitted, IV remains in ea place. 03:40 Inserted saline lock: 24 gauge in left upper arm, using aseptic technique. ad5 03:40 Unintentional removal of IV to R hand by pt, dressing applied and bleeding controlled. ad5 New IV est to L upper arm at this time, pt tolerated well, flushes with ease, blood return present. Administered Medications: 09/10 21:20 Drug: ProTONIX (pantoprazole) 40 mg Route: IVP; Site: right hand; ea 21:20 Drug: ProTONIX (pantoprazole) 8 mg/hr Route: IV; Rate: 25 ml/hr; Site: right hand; ea 21:24 Drug: Rocephin (cefTRIAXone) 1 grams Route: IV; Rate: calculated rate; Site: right hand;ea 21:25 Drug: NS 0.9% 500 ml Route: IV; Rate: 500 ml/hr; Site: right hand; ea 22:02 Drug: Octreotide Infusion (50 mcg/hr) - (Octreotide 500 mcg, NS 0.9% 500 ml) Route: IV; ea Rate: 50 ml/hr; Site: right antecubital; 22:02 Drug: Octreotide 50 mcg Route: IV; Rate: calculated rate; Site: right antecubital; ea Outcome: 22:45 ER care complete, transfer ordered by MD. cp 09/11 01:05 Decision to Hospitalize by Provider. cp 02:24 Instructed on the need for admit. ea 03:23 Admitted to Med/surg via stretcher, Report called to YAMILEX Coombs ad5 03:23 Condition: stable 03:41 Patient left the ED. ad5 Signatures: Dispatcher [employer] EDMS Cathy Mccray RN RN bb Page, Corey, PA PA Angely Israel RN RN ea Robles, Autumn ar5 Vandana Sultana RN RN Lambert Sibley ad5 Corrections: (The following items were deleted from the chart) 01:19 09/10 21:51 [facility] declined the transfer due to no capacity ar5 ar5 09/11 01:24 01:22 [facility] declined transfer due to no capacity ar5 ar5 02:17 09/10 21:20 Initiated transfer to [facility] ar5 ar5
--- NOTE | 2020-09-10 22:46 | EDPHYS ---
Physician Documentation [facility] Name: Nela aHndy Age: 75 yrs Sex: Female : 1945 Arrival Date: 09/10/2020 Time: 19:21 Bed 6 Private MD: ED Physician Franc Millan HPI: 09/10 19:30 This 75 yrs old Female presents to ER via Unassigned with complaints of Black cp Stools. 19:30 The patient presents to the emergency department with rectal bleeding, melena. Onset: cp The symptoms/episode began/occurred at an unknown time. 19:30 Abdominal pain: none is appreciated. Associated signs and symptoms: Pertinent cp negatives: diarrhea, fever, syncope. Historical: - Allergies: 20:06 PENICILLINS; ea - Home Meds: 20:06 amiodarone 200 mg Oral tab [Active]; buspirone 15 mg Oral tab [Active]; digoxin 125 mcg ea Oral tab 1 tab once daily [Active]; furosemide 20 mg oral tab [Active]; Lovenox 80 mg/0.8 mL subcutaneous syrg every 12 hours [Active]; potassium chloride 20 mEq Oral TbER 1 tab 2 times per day [Active]; famotidine 20 mg Oral tab [Active]; Eliquis 5 mg oral tab [Active]; warfarin 5 mg Oral tab [Active]; - PMHx: 20:06 CHF; CVA; Hypertension; COPD; paroxysmal a fib; ea - Immunization history:: Adult Immunizations up to date. - Social history:: Smoking status: Patient denies any tobacco usage or history of. ROS: 19:32 Constitutional: Negative for fever. cp 19:32 Abdomen/GI: Positive for black/tarry stool, Negative for abdominal pain, nausea, vomiting, and diarrhea. 19:32 Neuro: Positive for altered mental status. Exam: 19:40 Constitutional: The patient appears in no acute distress, alert, awake, cp non-diaphoretic, non-toxic, well developed, well nourished, obese. 19:40 Head/Face: Normocephalic, atraumatic. cp 19:40 Eyes: Periorbital structures: appear normal, Pupils: equal, round, and reactive to light and accomodation, Conjunctiva: normal, no exudate, no injection, Sclera: icterus, is present, Lids and lashes: appear normal, bilaterally. 19:40 ENT: External ear(s): are unremarkable, Nose: is normal, Mouth: Lips: moist, Oral mucosa: moist, Posterior pharynx: Airway: no evidence of obstruction, patent. 19:40 Chest/axilla: Inspection: normal, Palpation: is normal, no crepitus, no tenderness. 19:40 Cardiovascular: Rate: bradycardic, Rhythm: irregular, Edema: ankle edema, that is mild, JVD: is not appreciated. 19:40 Respiratory: the patient does not display signs of respiratory distress, Respirations: normal, no use of accessory muscles, no retractions, labored breathing, is not present, Breath sounds: decreased breath sounds, are not appreciated, wheezing: is not appreciated. 19:40 Abdomen/GI: Inspection: obese Bowel sounds: active, all quadrants, Palpation: abdomen is soft and non-tender, in all quadrants. 19:40 : Rectal exam: Stool: black, Guaiac testing: results were positive for occult blood. 19:40 Skin: on the pelvis. 19:40 Neuro: Orientation: to person. 21:27 ECG was reviewed by the Attending Physician. Vital Signs: 19:22 BP 146 / 92; Pulse 58; Resp 18; Temp 97.6; Pulse Ox 95% on 2 lpm NC; ea 20:42 BP 101 / 67; Pulse 59; Resp 18 S; Pulse Ox 94% on NC; ad5 22:21 BP 101 / 67; Pulse 55; Resp 16 S; Pulse Ox 96% on R/A; ad5 09/11 00:30 BP 104 / 68; Pulse 69; Resp 18 S; ad5 02:12 BP 115 / 95; Pulse 52; Resp 18 S; Pulse Ox 96% ; ad5 MDM: 09/10 19:23 Patient medically screened. cp 19:30 Differential diagnosis: gastritis, hemorrhoids, hemorrhagic shock, varices, upper GI cp bleed, anemia. 21:43 Data reviewed: vital signs, nurses notes. 09/11 01:09 Physician consultation: Anatoly Gaitan MD was called at 01:00, was contacted at 01:00, regarding consult, patient's condition, will see patient later this morning. 01:13 Physician consultation: Ministerio RUBY was called at 01:05, was contacted at 01:05, regarding admission, to the telemetry unit. patient's condition, would like admission per Dr. Stephen Fox MD. 01:14 ED course: Attempt to transfer patient to [facility] system, [facility] system, [facility] system, [facility] system, [facility] system unsuccessful due their facilities being at capacity. Will admit patient here for continued care. 09/10 19:23 Order name: Basic Metabolic Panel; Complete Time: 20:13 09/10 20:21 Interpretation: Normal except: BUN 76; CRE 2.80; GFR 16; CA 8.1. cp 09/10 19:23 Order name: CBC with Diff; Complete Time: 20:13 cp 09/10 19:58 Interpretation: Normal except: RBC 3.08; HGB 10.6; HCT 31.4; MCV 102.0; PLT 93; RDW cp 17.3. 09/10 19:23 Order name: LFT's; Complete Time: 20:13 cp 09/10 20:26 Interpretation: Normal except: AST 54; ALK 174; BILIT 3.0; BILID 1.9; TP 5.7; ALB 1.7; cp GLOB 4.0; A/G 0.4. 09/10 19:23 Order name: Magnesium; Complete Time: 20:13 cp 09/10 19:23 Order name: NT PRO-BNP; Complete Time: 20:13 cp 09/10 21:14 Interpretation: Abnormal: NT PRO-BNP 65978. cp 09/10 19:23 Order name: PT-INR; Complete Time: 20:26 cp 09/10 19:23 Order name: Troponin (emerg Dept Use Only); Complete Time: 20:13 cp 09/10 20:18 Interpretation: Abnormal: TROPED 0.18. cp 09/10 19:23 Order name: Type And Screen; Complete Time: 22:52 cp 09/10 19:23 Order name: Ptt, Activated; Complete Time: 20:26 cp 09/10 19:23 Order name: Urine Microscopic Only; Complete Time: 20:13 cp 09/10 20:20 Interpretation: Normal except: UWBC 20-50; URBC TNTC; YEAST PRESENT; BUD PRESENT. cp 09/10 19:23 Order name: AMMONIA; Complete Time: 20:26 cp 09/10 19:25 Order name: Blood Culture Adult (2) cp 09/10 19:25 Order name: Procalcitonin; Complete Time: 21:13 cp 09/10 21:13 Interpretation: Abnormal: Procalcitonin 0.55. cp 09/10 19:25 Order name: Lactate; Complete Time: 20:26 cp 09/10 21:15 Interpretation: Abnormal: LAC 2.4. cp 09/10 19:23 Order name: XRAY Chest (1 view); Complete Time: 21:13 cp 09/10 19:23 Order name: EKG; Complete Time: 19:24 cp 09/10 19:31 Order name: Urine Dipstick-Ancillary; Complete Time: 19:40 EDMS 09/10 19:41 Interpretation: Normal except: UBLD 3+; UPROT Trace; UESTR Trace. 09/10 20:03 Order name: CBC Smear Scan; Complete Time: 20:13 EDMS 09/10 20:06 Order name: Urine Culture EDMN 09/10 20:27 Order name: CT Abd/Pelvis - Without Contrast; Complete Time: 21:13 09/10 23:32 Order name: SARS-COV-2 RT PCR; Complete Time: 01:00 EDMS 09/11 00:00 Order name: Lactate Sepsis 2 HR Follow-up; Complete Time: 01:00 EDMS 09/11 02:26 Order name: CONS Physician Consult EDMN 09/10 19:23 Order name: Cardiac monitoring; Complete Time: 20:02 09/10 19:23 Order name: EKG - Nurse/Tech; Complete Time: 20:02 09/10 19:23 Order name: IV Saline Lock; Complete Time: 20:02 09/10 19:23 Order name: Labs collected and sent; Complete Time: 20:02 cp 09/10 19:23 Order name: O2 Per Protocol; Complete Time: 20:02 cp 09/10 19:23 Order name: O2 Sat Monitoring; Complete Time: 20:02 09/10 19:23 Order name: Cath; Complete Time: 20:02 cp 09/10 19:23 Order name: Urine Dipstick-Ancillary (obtain specimen); Complete Time: 20:51 cp EC/15 21:27 Rate is 59 beats/min. Rhythm is irregular. QRS interval is normal. QT interval is cp normal. Interpreted by me. Reviewed by me. Administered Medications: 21:20 Drug: ProTONIX (pantoprazole) 40 mg Route: IVP; Site: right hand; ea 21:20 Drug: ProTONIX (pantoprazole) 8 mg/hr Route: IV; Rate: 25 ml/hr; Site: right hand; ea 21:24 Drug: Rocephin (cefTRIAXone) 1 grams Route: IV; Rate: calculated rate; Site: right hand;ea 21:25 Drug: NS 0.9% 500 ml Route: IV; Rate: 500 ml/hr; Site: right hand; ea 22:02 Drug: Octreotide Infusion (50 mcg/hr) - (Octreotide 500 mcg, NS 0.9% 500 ml) Route: IV; ea Rate: 50 ml/hr; Site: right antecubital; 22:02 Drug: Octreotide 50 mcg Route: IV; Rate: calculated rate; Site: right antecubital; ea Disposition: 09/11 01:16 Chart complete. cp 04:06 Co-signature as Attending Physician, Franc Millan MD. rn Disposition: 09/11/20 01:05 Hospitalization ordered by Stephen Fox for Inpatient Admission. Preliminary diagnosis are Gastrointestinal hemorrhage, unspecified, Other cirrhosis of liver, Urinary tract infection, site not specified. - Bed requested for Telemetry/MedSurg (Inpatient). - Status is Inpatient Admission. ad5 - Condition is Stable. - Problem is new. - Symptoms have improved. Signatures: Dispatcher [employer] [facility] Franc Millan MD MD rn Page, Corey, PA PA cp Kacey Casillas RN RN cg Antunez, Elena, RN RN ea Davidson, Andrea ad5 Corrections: (The following items were deleted from the chart) 09/10 20:21 20:17 Normal except: BUN 76; CRE 2.80; GFR 16. cp cp 20:26 20:17 Normal except: AST 54; ALK 174; BILIT 3.0; BILID 1.9; TP 5.7; ALB 1.7; GLOB 4.0. cp cp 22:36 21:31 CORONAVIRUS+MR.LAB.BRZ ordered. [facility] 09/11 01:04 09/10 22:45 09/10/2020 22:45 Transfer ordered to Other Acute Care Facility. Diagnosis cp is Gastrointestinal hemorrhage, unspecified; Urinary tract infection, site not specified; Other cirrhosis of liver. Reason for transfer: Higher level of care. Accepting physician is Doctor. Condition is Stable. Problem is new. Symptoms have improved. 09/11 03:11 01:05 Hospitalization Ordered by Stephen Fox MD for Inpatient Admission. Preliminary cg diagnosis is Gastrointestinal hemorrhage, unspecified; Other cirrhosis of liver; Urinary tract infection, site not specified. Bed requested for Telemetry/MedSurg (Inpatient). Status is Inpatient Admission. Condition is Stable. Problem is new. Symptoms have improved. cp 03:41 03:11 09/11/2020 01:05 Hospitalization Ordered by Stephen Fox MD for Inpatient ad5 Admission. Preliminary diagnosis is Gastrointestinal hemorrhage, unspecified; Other cirrhosis of liver; Urinary tract infection, site not specified. Bed requested for Telemetry/MedSurg (Inpatient). Status is Inpatient Admission. Condition is Stable. Problem is new. Symptoms have improved. cg
--- NOTE | 2020-09-11 03:31 | P.HP ---
Certification for Inpatient Patient admitted to: Inpatient With expected LOS: >2 Midnights Patient will require the following post-hospital care: None Practitioner: I am a practitioner with admitting privileges, knowledge of patient current condition, hospital course, and medical plan of care. Services: Services provided to patient in accordance with Admission requirements found in Title 42 Section 412.3 of the Code of Federal Regulations <Ministerio Jay - Last Filed: 09/11/20 03:35> Patient History Date of Service: 09/11/20 Reason for admission: UGIB History of Present Illness: Ms. Handy is a 75 yo F with CHF, paroxysmal afib on warfarin, eliquis and lovenox, h/o CVA, HTN, COPD, cirrhosis brought in from [facility] for melena and rectal bleeding. Patient unable to give medical history. Hemodynamically stable, not in pain. CXR showed small right pleural effusion and mild to moderately enlarged heart. CT showed small right pleural effusion, small amount of ascites and nodular contour to the liver indicating chronic disease. H/H 10.6, stable from last check. MCV 102. Plt 93. BUN 76, Cr 2.8, GFR 16. Tbili 3, Dbili 1.9. AST 54, alk phos 174. Trop 0.18, BNP 73318. Procal 0.55. Urine with UTI and candiduria. - Past Medical/Surgical History Diabetic: No -: CHF -: cirrhosis -: paroxysmal afib -: CVA -: HTN -: COPD Past Surgical History: Unable to obtain - Family History Family History: Reviewed- Non-Contributory - Social History Smoking Status: Unknown if ever smoked Alcohol use: No CD- Drugs: No Caffeine use: No Place of Residence: Retirement <Ministerio Jay - Last Filed: 09/11/20 03:35> Date of Service: 09/11/20 <Stephen Fox - Last Filed: 09/12/20 23:50> Allergies Penicillins Allergy (Verified 09/12/20 14:56) unknwn Home Medications: Acetaminophen [Tylenol] 650 mg PO Q4HP PRN 09/11/20 Amiodarone HCl 100 mg PO DAILY 09/11/20 Ammonium Lactate 1 appl TP BID 09/11/20 Bisacodyl [Dulcolax] 10 mg RC DAILY PRN 09/11/20 Buspirone HCl 15 mg PO BID 09/11/20 Collagenase [Santyl Ointment] 1 appl TP DAILY 09/11/20 Digoxin [Lanoxin] 0.125 mg PO DAILY 09/11/20 Docusate Sodium [Stool Softener] 100 mg PO DAILY 09/11/20 Enoxaparin Sodium [Lovenox 100 MG INJ] 90 mg SQ BID 09/11/20 Fluconazole [Diflucan] 150 mg PO SEECOM 09/11/20 Furosemide [Lasix] 20 mg PO DAILY 09/11/20 Ipratropium/Albuterol Sulfate [Combivent Respimat Inhal Jasper] 1 inh IH Q6H 09/11/20 Lidocaine 4% Patch [Lidoderm 5% Patch] 1 patch TD DAILY 09/11/20 Nystatin Powder [Mycostatin (Powder)] 1 appl TP BID 09/11/20 Ondansetron HCl 4 mg PO Q8HP 09/11/20 Polyethylene Glycol 3350 [Miralax] 17 gm PO DAILY 09/11/20 Potassium Chloride 20 meq PO DAILY 09/11/20 Sennosides/Docusate Sodium [Senna-Docusate Sodium Tablet] 1 each PO DAILY 09/11/20 Zinc Oxide [Zinc Oxide 20%] 1 appl TOP TID 09/11/20 Review of Systems is unable to be obtained Gastrointestinal: Melena, As per HPI <Ministerio Jay - Last Filed: 09/11/20 03:35> Physical Examination - Physical Exam General: Alert, In no apparent distress, Demented, Confused HEENT: Atraumatic, PERRLA, Mucous membr. moist/pink, EOMI, Sclerae nonicteric Neck: Supple, 2+ carotid pulse no bruit, No LAD, Without JVD or thyroid abnormality Respiratory: Normal air movement, Crackles/rales Cardiovascular: Regular rate/rhythm, Normal S1 S2, No gallops, No rubs, No murmurs Gastrointestinal: Normal bowel sounds, No tenderness, No masses, No rebound, No guarding, Ascites Musculoskeletal: No tenderness Integumentary: No rashes Neurological: Normal strength at 5/5 x4 extr, Normal tone, Sensation intact, Cranial nerves 3-12 intact, Dementia - Studies Laboratory Data (last 24 hrs) 09/10/20 19:46: PT 23.8 H, INR 2.05, APTT 36.7 09/10/20 19:29: WBC 9.90, Hgb 10.6 L, Hct 31.4 L, Plt Count 93 L 09/10/20 19:29: Sodium 141, Potassium 4.2, BUN 76 H, Creatinine 2.80 H, Glucose 83, Magnesium 2.1, Total Bilirubin 3.0 H, AST 54 H, ALT 23, Alkaline Phosphatase 174 H <Ministerio Jay - Last Filed: 09/11/20 03:35> Assessment and Plan - Problems (Diagnosis) (1) CHF (congestive heart failure) Current Visit: Yes Status: Chronic Qualifiers: Heart failure type: unspecified Heart failure chronicity: chronic Qualified Code(s): I50.9 - Heart failure, unspecified (2) Cirrhosis Current Visit: Yes Status: Chronic Qualifiers: Hepatic cirrhosis type: unspecified hepatic cirrhosis Ascites presence: with ascites Qualified Code(s): K74.60 - Unspecified cirrhosis of liver; R18.8 - Other ascites (3) Afib Current Visit: Yes Status: Chronic Qualifiers: Atrial fibrillation type: paroxysmal Qualified Code(s): I48.0 - Paroxysmal atrial fibrillation (4) History of CVA (cerebrovascular accident) Current Visit: Yes Status: Chronic (5) HTN (hypertension) Current Visit: Yes Status: Chronic Qualifiers: Hypertension type: essential hypertension Qualified Code(s): I10 - Essential (primary) hypertension (6) COPD (chronic obstructive pulmonary disease) Current Visit: Yes Status: Chronic Qualifiers: COPD type: unspecified COPD Qualified Code(s): J44.9 - Chronic obstructive pulmonary disease, unspecified (7) UGIB (upper gastrointestinal bleed) Current Visit: Yes Status: Acute (8) ARIANE (iron deficiency anemia) Current Visit: Yes Status: Chronic Qualifiers: Iron deficiency anemia type: unspecified iron deficiency Qualified Code(s): D50.9 - Iron deficiency anemia, unspecified - Plan GI consulted continue octreotide infusion and protonix drip continue IV ceftriaxone 1g daily hold IVF given R pleural effusion and CHF and hemodynamic stability H/H q2hr x 5, daily coags 2 large bore IVs, type and screen trend troponins NPO until speech evaluation will reconcile and continue home medications on telemetry SCDs O2 as needed Discharge Plan: Retirement Plan to discharge in: 72 Hours - Advance Directives Does patient have a Living Will: No Does patient have a Durable POA for Healthcare: No - Code Status/Comfort Care Code Status Assessed: Yes (full code ) Critical Care: No Time Spent Managing Pts Care (In Minutes): 70 <Ministerio Jay - Last Filed: 09/11/20 03:35> - Problems (Diagnosis) (1) UGIB (upper gastrointestinal bleed) Current Visit: Yes Status: Acute (2) Afib Current Visit: Yes Status: Chronic Qualifiers: Atrial fibrillation type: paroxysmal Qualified Code(s): I48.0 - Paroxysmal atrial fibrillation (3) CHF (congestive heart failure) Current Visit: Yes Status: Chronic Qualifiers: Heart failure type: unspecified Heart failure chronicity: chronic Qualified Code(s): I50.9 - Heart failure, unspecified (4) COPD (chronic obstructive pulmonary disease) Current Visit: Yes Status: Chronic Qualifiers: COPD type: unspecified COPD Qualified Code(s): J44.9 - Chronic obstructive pulmonary disease, unspecified (5) Cirrhosis Current Visit: Yes Status: Chronic Qualifiers: Hepatic cirrhosis type: unspecified hepatic cirrhosis Ascites presence: with ascites Qualified Code(s): K74.60 - Unspecified cirrhosis of liver; R18.8 - Other ascites (6) HTN (hypertension) Current Visit: Yes Status: Chronic Qualifiers: Hypertension type: essential hypertension Qualified Code(s): I10 - Essential (primary) hypertension (7) History of CVA (cerebrovascular accident) Current Visit: Yes Status: Chronic <Stephen Fox - Last Filed: 09/12/20 23:50> Date of Service: 09/11/20 Agree with plan of care as mentioned above. Will speak with family and decide regarding further plan of care. Patient has some confusion which appears to be chronic. Awaiting for family to arrive. Patient with end-stage liver and renal disease. Echocardiogram ordered. <Stephen Fox - Last Filed: 09/12/20 23:50>
[2020-09-11] MEDS ORDERED: PANTOPRAZOLE INJ 80 MG in NA CHLORIDE 0.9% 250 ML IV SCH (04:19)
[2020-09-11] MEDS ORDERED: OCTREOTIDE 500 MCG in NA CHLORIDE 0.9% 500 ML IV SCH (04:19)
[2020-09-11] MEDS ORDERED: ACETAMINOPHEN 500 MG TAB PO PRN (04:19)
[2020-09-11] MEDS ORDERED: ONDANSETRON 4 MG/2 ML VIAL IV PRN (04:19)
[2020-09-11 05:07] LABS: Absolute Lymphocytes (CBC) 1.6 K/uL (0.7-4.9); Basophils % 0.9 % (0-1.3); Hematocrit 33.5 % (36.0-45.0); MPV 9.4 fL (7.6-11.3); RBC Red Blood Cell Count 3.25 M/uL (3.86-4.86)
[2020-09-11 05:10] LABS: Protime INR 1.88
[2020-09-11] MEDS ORDERED: HOME MED 1 EA UNK (Ipratropium/Albuterol Sulfate [Combivent Respimat 20-100 Mcg] 4 GM Mist IH SCH (05:15)
[2020-09-11 05:19] LABS: Troponin I 0.16 ng/mL (0.0-0.045)
[2020-09-11] MEDS: IPRATROPIUM BROM 0.5MG/2.5ML IH SCH ×4 (05:20→19:25)
[2020-09-11] MEDS: ALBUTEROL 2.5 MG/3 ML NEB SOL NEB SCH ×4 (05:23→19:25)
[2020-09-11 05:58] LABS: ALT/SGPT 26 U/L (12-78); AST/SGOT 60 U/L (15-37); Albumin 1.8 g/dL (3.4-5.0); Alkaline Phosphatase 182 U/L (45-117); BUN Blood Urea Nitrogen 79 mg/dL (7-18); Bicarbonate 26 mmol/L (21-32); Folic Acid, (Folate) 2.9 ng/mL (3.1-17.5); Glucose Level 83 mg/dL (74-106); Magnesium 2.2 mg/dL (1.8-2.4); Phosphorus 3.4 mg/dL (2.5-4.9); Potassium 4.2 mmol/L (3.5-5.1); Sodium Level 142 mmol/L (136-145)
[2020-09-11 07:05] LABS: Hematocrit 30.9 % (36.0-45.0)
--- NOTE | 2020-09-11 07:37 | EKG ---
Test Date: 2020-09-10 Test Time: 19:08:57 Wet End Helper: ECHO MEASUREMENT RESULTS: Intervals: Rate: 59 SD: QRSD: 82 QT: 386 QTc: 382 [place]: P: SD: QRS: -46 T: 182 INTERPRETIVE STATEMENTS: Atrial fibrillation with slow ventricular response Low voltage QRS Left anterior fascicular block Cannot rule out Anterior infarct, age undetermined ST & T wave abnormality, consider lateral ischemia Abnormal ECG No previous ECG available for comparison Electronically Signed On 09-11-20 07:35:49 CDT by Omkar Huang
[2020-09-11] MEDS ORDERED: COLLAGENASE 30 GM OINTMENT TOP SCH (09:00)
[2020-09-11 09:07] LABS: Hematocrit 31.2 % (36.0-45.0)
[2020-09-11] MEDS: OCTREOTIDE 500 MCG in NA CHLORIDE 0.9% 500 ML IV SCH ×2 (09:41→19:07)
[2020-09-11] MEDS: PANTOPRAZOLE INJ 80 MG in NA CHLORIDE 0.9% 250 ML IV SCH ×2 (09:42→19:07)
[2020-09-11] MEDS: LIDOCAINE 4% PATCH TD SCH (09:44)
[2020-09-11] MEDS: AMIODARONE HCL 200 MG TAB PO SCH (09:52)
[2020-09-11] MEDS: NYSTATIN PWDR 100000 UNIT/GM TOP SCH ×2 (09:52→20:57)
[2020-09-11] MEDS: ZINC OXIDE 20% OINTMENT 60gm TOP SCH ×3 (09:52→20:57)
[2020-09-11 10:55] LABS: Hematocrit 32.8 % (36.0-45.0)
[2020-09-11 12:32] LABS: Urine Appearance TURBID (Clear); Urine Blood 3+ (Negative); Urine Color ORANGE (Yellow); Urine Glucose NEGATIVE (Negative); Urine Protein NEGATIVE (Negative); Urine Specific Gravity 1.015 (1.005-1.030)
[2020-09-11 12:34] LABS: Urine Bilirubin NEGATIVE (Negative); Urine Microscopic Reflex ORDER UMIC
[2020-09-11 12:47] LABS: Urine Bacteria 20-50 /HPF (<20)
[2020-09-11 12:48] LABS: Urine Yeast MANY (NONE SEEN); Urine Yeast with Hyphae PRESENT
[2020-09-11] MEDS ORDERED: ALBUMIN HUMAN 25% 100 ML IV ONE ×2 (12:52→18:00)
[2020-09-11] MEDS ORDERED: NA CHLORIDE 0.9% 250 ML IV ONE ×2 (13:00→18:00)
[2020-09-11] MEDS ORDERED: NA CHLORIDE 0.9% 500 ML IV ONE (13:00)
[2020-09-11 13:03] LABS: Hematocrit 32.3 % (36.0-45.0)
--- NOTE | 2020-09-11 15:11 | P.PN ---
Subjective Date of Service: 09/11/20 Patient's hemoglobin has been stable. Was notified by nursing staff regarding low blood pressure. Patient with cirrhosis of the liver. Bilrubin elevated, protimes elevated, and low albumin levels. Will go ahead and give IV albumin. Patient may need FFP is a if any evidence of bleeding. Hemoglobin is stable. No signs of active bleeding at this time. I will get GI consultation as well. Review of Systems 10-point ROS is otherwise unremarkable Physical Examination - Vital Signs Temperature: 96.6 F Blood Pressure: 93/63 Pulse: 81 Respirations: 24 Pulse Ox (%): 86 - Physical Exam General: Confused HEENT: Atraumatic, Normocephalic Respiratory: Crackles/rales Cardiovascular: Regular rate/rhythm, Normal S1 S2, Systolic murmur Gastrointestinal: Normal bowel sounds, Soft and benign, Non-distended, Tenderness Musculoskeletal: No clubbing, No swelling Neurological: Abnormal gait, Abnormal speech, Abnormal strength - Studies Laboratory Data (last 24 hrs) 09/10/20 19:46: PT 23.8 H, INR 2.05, APTT 36.7 09/10/20 19:29: WBC 9.90, Hgb 10.6 L, Hct 31.4 L, Plt Count 93 L 09/10/20 19:29: Sodium 141, Potassium 4.2, BUN 76 H, Creatinine 2.80 H, Glucose 83, Magnesium 2.1, Total Bilirubin 3.0 H, AST 54 H, ALT 23, Alkaline Phosphatase 174 H Assessment & Plan - Problems (Diagnosis) (1) UGIB (upper gastrointestinal bleed) Current Visit: Yes Status: Acute (2) Afib Current Visit: Yes Status: Chronic Qualifiers: Atrial fibrillation type: paroxysmal Qualified Code(s): I48.0 - Paroxysmal atrial fibrillation (3) CHF (congestive heart failure) Current Visit: Yes Status: Chronic Qualifiers: Heart failure type: unspecified Heart failure chronicity: chronic Qual ified Code(s): I50.9 - Heart failure, unspecified (4) COPD (chronic obstructive pulmonary disease) Current Visit: Yes Status: Chronic Qualifiers: COPD type: unspecified COPD Qualified Code(s): J44.9 - Chronic obstructive pulmonary disease, unspecified (5) Cirrhosis Current Visit: Yes Status: Chronic Qualifiers: Hepatic cirrhosis type: unspecified hepatic cirrhosis Ascites presence: with ascites Qualified Code(s): K74.60 - Unspecified cirrhosis of liver; R18.8 - Other ascites (6) HTN (hypertension) Current Visit: Yes Status: Chronic Qualifiers: Hypertension type: essential hypertension Qualified Code(s): I10 - Essential (primary) hypertension (7) History of CVA (cerebrovascular accident) Current Visit: Yes Status: Chronic - Plan Plan: 1. Monitor liver function testing closely and renal function testing 2. Monitor H&H 3. CT of the brain pending 4. Neurology consultation, gastroenterology consultation, and Nephrology consultation 5. Patient with possible hepatorenal syndrome. Will continue with albumin IV 6. Monitor hemodynamics closely; echocardiogram pending 7. Neurochecks Q 4 8. GI and DVT - Advance Directives Does patient have a Living Will: No Does patient have a Durable POA for Healthcare: No Critical Care: Yes Time Spent Managing PTS Care (In Minutes): 60
[2020-09-11] MEDS: FOLIC ACID 1 MG in NA CHLORIDE 0.9% 50 ML IV SCH (15:14)
--- NOTE | 2020-09-11 15:52 | P.PN ---
Date of Service: 09/11/20 Spoke with family and state that mentation has worsened significantly over the last 2 weeks. Will order a stat CT of the brain for further evaluation.
--- NOTE | 2020-09-11 16:43 | RAD REPORT ---
EXAM DESCRIPTION: CT - Head Brain Wo Cont - 09/11/2020 4:29 pm CLINICAL HISTORY: AMS Headache, drowsiness COMPARISON: No comparisons TECHNIQUE: All CT scans are performed using dose optimization technique as appropriate and may inclu de automated exposure control or mA/KV adjustment according to patient size. FINDINGS: Crescentic intermediate density collection along the right convexity, anterior 10 mm maxim um thickness likely represents chronic right-sided subdural hematoma.No acute hemorrhage seen. No hyd rocephalus present.No midline shift is evident. Mild periventricular and deep white matter chronic mi crovascular ischemic changes. The paranasal sinuses and mastoids are clear. The calvarium is intact. IMPRESSION: Right convexity chronic subdural hematoma suspected measuring up 10 mm in thickness. No significant midline shift is evident.
[2020-09-11] MEDS: ALBUMIN HUMAN 25% 50 ML IV SCH (17:07)
[2020-09-11] MEDS ORDERED: ALBUTEROL 2.5 MG/3 ML NEB SOL ONE (19:46)
[2020-09-11] MEDS ORDERED: IPRATROPIUM BROM 0.5MG/2.5ML ONE (19:46)
[2020-09-11] MEDS ORDERED: LORazepam 2 MG/ML VIAL ONE (20:37)
[2020-09-11] MEDS ORDERED: NA CHLORIDE 0.9% 500 ML ONE (20:52)
[2020-09-11] MEDS: CEFTRIAXONE/SWI 1gm 1 GM/10 ML SYR IVP SCH (20:56)
[2020-09-11] MEDS: FOLIC ACID 1 MG TABLET PO SCH (20:56)
[2020-09-11] MEDS: Rifaximin 550 MG Tab PO SCH (21:00)
[2020-09-11] MEDS ORDERED: CEFTRIAXONE 1 GM/NS 50 ML 1 GM/50 ML BAG IV SCH (21:00)
[2020-09-11] MEDS ORDERED: CEFTRIAXONE/SWI 1gm 1 GM/10 ML SYR ONE (21:11)
[2020-09-11] MEDS ORDERED: FOLIC ACID 1 MG TABLET ONE (21:11)
[2020-09-12] MEDS: ALBUMIN HUMAN 25% 50 ML IV SCH (01:45)
[2020-09-12] MEDS: IPRATROPIUM BROM 0.5MG/2.5ML IH SCH ×4 (02:00→20:00)
[2020-09-12] MEDS: ALBUTEROL 2.5 MG/3 ML NEB SOL NEB SCH ×4 (02:00→20:00)
[2020-09-12] MEDS ORDERED: ALBUMIN HUMAN 25% 50 ML IV ONE ×3 (02:05→17:41)
[2020-09-12] MEDS ORDERED: IPRATROPIUM BROM 0.5MG/2.5ML ONE ×4 (02:21→20:24)
[2020-09-12] MEDS ORDERED: ALBUTEROL 2.5 MG/3 ML NEB SOL ONE ×4 (02:21→20:24)
[2020-09-12 05:16] LABS: Absolute Lymphocytes (CBC) 1.6 K/uL (0.7-4.9); Basophils % 0.7 % (0-1.3); Hematocrit 26.1 % (36.0-45.0); Lymphocytes % 23.2 % (15.3-44.8); MPV 9.5 fL (7.6-11.3); RBC Red Blood Cell Count 2.53 M/uL (3.86-4.86)
[2020-09-12 05:19] LABS: Protime INR 2.13
[2020-09-12 05:34] LABS: Albumin 2.8 g/dL (3.4-5.0); Bilirubin Total 2.6 mg/dL (0.2-1.0); Ferritin 783.4 ng/mL (8-388); Magnesium 2.1 mg/dL (1.8-2.4); Potassium 4.3 mmol/L (3.5-5.1); Protein, Total 6.1 g/dL (6.4-8.2); Thyroid Stimulating Hormone 0.559 uIU/mL (0.360-3.740); Uric Acid 14.4 mg/dL (2.6-6.0)
--- NOTE | 2020-09-12 07:37 | RAD REPORT ---
EXAM DESCRIPTION: RAD - Chest Single View - 09/12/2020 5:53 am CLINICAL HISTORY: pneumonia COMPARISON: September 10 CT study, September 10 portable chest TECHNIQUE: AP portable chest image was obtained 09/12/2020 5:53 am . FINDINGS: Increased interstitial opacification is present. Vasculature seems more pronounced as well . Heart size is prominent but no interval change noted. Prior study with substantially rotated. Right -sided pleural effusion is present. No pneumothorax seen. No acute bony abnormality seen. No acute ao rtic findings suspected. IMPRESSION: Suspected CHF/volume overload superimposed on pre-existing right pleural effusion and pa tchy right lung parenchymal opacification.
[2020-09-12] MEDS: FOLIC ACID 1 MG TABLET PO SCH ×2 (07:58→20:27)
[2020-09-12] MEDS: AMIODARONE HCL 200 MG TAB PO SCH (07:58)
[2020-09-12] MEDS: ZINC OXIDE 20% OINTMENT 60gm TOP SCH ×3 (09:00→21:00)
[2020-09-12] MEDS: COLLAGENASE 30 GM OINTMENT TOP SCH (09:00)
[2020-09-12] MEDS: Rifaximin 550 MG Tab PO SCH ×2 (09:00→21:00)
[2020-09-12] MEDS: NYSTATIN PWDR 100000 UNIT/GM TOP SCH ×2 (09:00→21:00)
[2020-09-12] MEDS: PANTOPRAZOLE INJ 80 MG in NA CHLORIDE 0.9% 250 ML IV SCH ×2 (09:09→15:00)
[2020-09-12] MEDS: OCTREOTIDE 500 MCG in NA CHLORIDE 0.9% 500 ML IV SCH ×2 (09:25→20:26)
[2020-09-12] MEDS: FOLIC ACID 1 MG in NA CHLORIDE 0.9% 50 ML IV SCH (11:19)
[2020-09-12] MEDS ORDERED: LIDOCAINE 4% PATCH ONE (11:44)
[2020-09-12] MEDS: LIDOCAINE 4% PATCH TD SCH (11:59)
[2020-09-12] MEDS: ALBUMIN HUMAN 25% 100 ML IV SCH ×2 (11:59→17:23)
[2020-09-12] MEDS ORDERED: EPOETIN ALFA-EPBX 10,000 UNIT/ML VIAL SQ SCH (12:00)
[2020-09-12] MEDS ORDERED: MIDODRINE HCL 5 MG TABLET PO SCH (13:00)
--- NOTE | 2020-09-12 13:50 | CON ---
Date of Consultation: 09/12/2020 Reason For Consultation: Elevated BUN and creatinine, fluid management. History Of Present Illness: All the information has been obtained from the chart and from Ms. Marc doe, the daughter over the phone as the patient being confused. This is a 75-year-old female with sig nificant past medical history of COPD, AFib, hypertension, apparently the patient had recent fall wit h fracture, treated, recovered, transferred to detention for rehabilitation. In the detention, family's last visit is a few weeks ago. The patient apparently found confused, for that reason brou ght to the hospital. The patient in the hospital found to be marginal blood pressure, elevated BUN a nd creatinine, creatinine 2.8 with GFR of 16. For that reason, we have been consulted. Over the nig ht, the patient was given 1 albumin, started on Sandostatin, and PPI drip. Kidney function continued to decline, today creatinine 3.2 with GFR of 14. The patient is anuric. For that reason, we have b maricel consulted. Reviewing the record, the patient apparently on Coumadin at the detention and also on Lasix 40 twice a day. Because of the anasarca, there is no other insulting medication on the rec ord. The patient had a CT yesterday without any contrast. CT did not show any obstruction, but did show b ilateral renal cysts. Reviewing the record back in July, creatinine 1.2, GFR of 41 and that is the sa me at the detention. Past Medical History: Includes; 1.COPD. 2.AFib. 3.Hypertension. 4.CVA. Family History: Positive for hypertension. Past Surgical History: Surgical repair of fracture. Social History: Lives in detention. Denied smoking. Denied drinking. Denied drugs abuse. Review of Systems: None obtainable. Physical Examination: Vital Signs: When I saw the patient; blood pressure 130/72, pulse of 88. Chest: Decreased entry bilateral base. Heart: S1, S2. Systolic murmur. Abdomen: Soft, nontender. Extremities: +1 edema. Neuro: Alert. Moving 4 extremities. No focality. Confused. Follows command. Laboratory Data: Chest x-ray; congestion bilaterally. WBC 8.9, H and H 11/33.5. Today lab data; so dium 144, potassium 4.3, bicarb 23, BUN 80, creatinine 3.2, GFR of 14, uric acid 14.4, calcium 8.4, p hosphorus 4, magnesium 2.1. Iron saturation is 64. TSH 0.5. WBC 7.1, H and H 8.9/26.1, platelets 7 9. Urinalysis; WBC more than 50. Hepatitis is still pending. Current Medications: The patient on include fluconazole, ceftriaxone, Xifaxan, amiodarone, folic aci d, Zofran, pantoprazole, octreotide. Assessment And Plan: 1.Acute kidney injury secondary to hepatorenal syndrome, superimposed with prerenal over diuresis, o liguric, over volume with underlining of polycystic kidney disease and chronic kidney disease. I had long discussion with daughter regarding the condition and the prognosis of the patient and the need to initiate renal replacement therapy given the hepatorenal and oliguric state and over volume. Stiven shaffer agreed. We will proceed with placing of Darci. Discussed the case with Dr. De Santiago, agreed on plan. We will place Darci and we will follow up the patient. We will start the patient on fluid expansion with albumin and midodrine. Continue octreotide and we will monitor. Possible recovery i s low, but the patient if deteriorates, possible to go with comfort care, so we are not going to proc eed with tunneled catheter. We are just going to get temporary catheter. 2.Hypertension, currently blood pressure on the lower side. We will place the patient on midodrine. 3.Anemia of chronic kidney disease. I am going to start the patient on Retacrit. 4.Cirrhosis, new onset. We will follow up with primary. 5.Anasarca secondary to cirrhosis. We will send for protein creatinine. Hypothyroidism has been ru led out. 6.Atrial fibrillation as by primary. Time spent discussing with family, discussing with Surgery, examining the patient [id number], lauro kirkland order and reviewing lab and radiology data, discussing with other subspecialty including [facility] and surgeon 75 minutes. RONNA Voice ID: [id number] Report ID: [id number]
[2020-09-12] MEDS ORDERED: MIDODRINE HCL 5 MG TABLET PO PRN (14:27)
[2020-09-12] MEDS ORDERED: CEFAZOLIN/SWI 1gm 1 GM/10 ML SYR IVP SCH (14:45)
--- NOTE | 2020-09-12 17:03 | RAD REPORT ---
EXAM DESCRIPTION: US - Renal Ultrasound-Complete - 09/12/2020 4:28 pm CLINICAL HISTORY: worsening renal function Flank pain COMPARISON: No comparisons FINDINGS: Both kidneys are normal in size, shape and echotexture. The right kidney measures 10.2 x 5.0 x 4.7 cm. No hydronephrosis, focal mass or perinephric fluid. Be nign right renal cysts, largest measuring 19 mm. The left kidney measures 10.6 x 5.3 x 4.9 cm. No hydronephrosis, focal mass or perinephric fluid. The urinary bladder is incompletely distended without gross abnormality seen. IMPRESSION: Benign right renal cysts are present. No hydronephrosis is evident.
--- NOTE | 2020-09-12 17:43 | P.PN ---
Date of Service: 09/12/20 Subjective Patient to get EGD and dialysis access catheter. Clinical condition is not significantly improve. Continue with EEG & started Keppra per Neurology. Continue monitoring H&H. Echocardiogram pending. Review of Systems 10-point ROS is otherwise unremarkable Physical Examination - Vital Signs Reviewed - Physical Exam General: Confused HEENT: Atraumatic, Normocephalic Respiratory: Crackles/rales Cardiovascular: Regular rate/rhythm, Normal S1 S2, Systolic murmur Gastrointestinal: Normal bowel sounds, Soft and benign, Non-distended, Tenderness Musculoskeletal: No clubbing, No swelling Neurological: Abnormal gait, Abnormal speech, Abnormal strength Assessment & Plan - Problems (Diagnosis) (1) UGIB (upper gastrointestinal bleed) Current Visit: Yes Status: Acute (2) Afib Current Visit: Yes Status: Chronic Atrial fibrillation type: paroxysmal Qualified Code(s): I48.0 - Paroxysmal atrial fibrillation (3) CHF (congestive heart failure) Current Visit: Yes Status: Chronic Heart failure type: unspecified Heart failure chronicity: chronic Qualified Code(s): I50.9 - Heart failure, unspecified (4) COPD (chronic obstructive pulmonary disease) Current Visit: Yes Status: Chronic COPD type: unspecified COPD Qualified Code(s): J44.9 - Chronic obstructive pulmonary disease, unspecified (5) Cirrhosis Current Visit: Yes Status: Chronic Hepatic cirrhosis type: unspecified hepatic cirrhosis Ascites presence: with ascites Qualified Code(s): K74.60 - Unspecified cirrhosis of liver; R18.8 - Other ascites (6) HTN (hypertension) Current Visit: Yes Status: Chronic Hypertension type: essential hypertension Qualified Code(s): I10 - Essential (primary) hypertension (7) History of CVA (cerebrovascular accident) Current Visit: Yes Status: Chronic - Plan Plan: 1. Schedule for Tessio catheter in a.m. Also scheduled for an EGD tomorrow. GI spoke with transplant center, and patient really does not qualify for transplant because of age and multiple comorbidities. If patient's liver function improves then we can hold off on transfer. If it worsens we may need to try to initiate transfer. 2. Monitor H&H 3. CT of the brain with a chronic subdural hematoma. Family unsure as to when this occurred. 4. Neurology consultation, gastroenterology consultation, and Nephrology consultation appreciated. 5. Patient with hepatorenal syndrome. Will continue with albumin IV. Will also set up hemodialysis. 6. Monitor hemodynamics closely; echocardiogram pending 7. Neurochecks Q 4 8. GI and DVT - Advance Directives Does patient have a Living Will: No Does patient have a Durable POA for Healthcare: No - Critical care time Critical care time spent with patient care was 60 minutes
--- NOTE | 2020-09-12 18:44 | CON ---
Reason For Consultation: Consultation called because of subdural hematoma. History Of Present Illness: Ms. Handy is a 75-year-old patient with congestive heart fail ure; paroxysmal atrial fibrillation treated with warfarin, who fell about 2 to 3 months ago with a ri ght proximal lower extremity fracture and was recuperating in a care home when she developed recta l bleeding with melena and was somewhat disoriented. The patient's family noted that for a few weeks , she would seem to not speak appropriately and talk in manner unrelated to the topic, but at times w ould appear to be clear. She did not exhibit any tonic or clonic activity, tongue biting or loss of bowel or bladder control, and there was no asymmetry of her face, arm, or leg during this. At [facility], part of her workup included a head CT scan which showed a chronic, 10 mm subdural jim tavon in the right convexity. The presence of the blood was not shown to be acute. Perhaps it occurr ed at the time of her fall where she suffered a lower extremity fracture. Past Medical History: Congestive heart failure, atrial fibrillation, cirrhosis of the liver, reporte d stroke, hypertension, COPD. Family History: Noncontributory. Allergies: TO PENICILLIN. Social History: The patient lives with family. No IV drugs, alcohol. Medications: Currently, Extra-Strength Tylenol 500 mg every 2 to 4 hours as needed, amiodarone 100 m g daily, Rocephin 1 g at bedtime, diflucan 150 mg daily, folic acid 1 mg daily, midodrine 5 mg 3 time s daily, Mycostatin 1 application twice daily, octreotide 500 mcg every 10 hours, Zofran 4 mg every 6 hours as needed, pantoprazole 80 mg every 10 hours, rifaximin 550 mg twice daily. Review of Systems: At this point review of systems is not reliable, although the family denies any recent fevers or chil ls and no new focal deficits as noted. No seizure-like activity. Otherwise, negative. Physical Examination: Vital Signs: Blood pressure 95/78, pulse 79, respiratory rate 17, temperature 97.2, oxygen saturatio n 93% on 3 L of oxygen. General: Ms. Handy is lying in bed. She does have some bruising noted on the arms and the lower li p. There is a healing injury with a clot in the lower lip. HEENT: She otherwise does appear to be normocephalic and atraumatic. Sclerae anicteric. Oropharynx pink and moist. Neck: Supple. She has decreased breath sounds. Abdomen: Soft. Extremities: Show some mild edema actually and some slight cyanosis noted in the lower extremities. Neurologic: She was asleep, but arousable to verbal stimulation, answer to her name, was able to alicia w thumbs up signs bilaterally and move her feet bilaterally to command. She was able to identify her daughter, but had some difficulty identifying her son who were both at the bedside. Otherwise, in t erms of cranial nerves, she does not have any focal deficits in the face, arm, or legs. Sensory exam difficult to fully assess. Coordination appears smooth and she moved arms and legs and reflexes are symmetric. She was not ambulated. Laboratory Studies: White blood cell count 7.1, hemoglobin 8.9, hematocrit 26.1. INR 2.13. Her cre atinine 3.26. Uric acid elevated at 14.4. Calcium is low at 8.4. AST 48. Alkaline phosphatase 141 . ALT is normal. TSH is normal. Procalcitonin is elevated at 0.55. Ammonia is less than 10. Assessment: Ms. Handy is a 75-year-old patient with a 10 mm right convexity chronic subdural hemato ma, possibly at the time of her fall which occurred 2 to 3 months ago. She is not quite functioning cognitively as she did about 3 months ago and there is no evidence of an acute ischemic or hemorrhagi c stroke, but the chronic subdural hematoma. She has some liver and kidney dysfunction which may be contributing factors to her encephalopathy. Plan: We will adjust Keppra 250 mg twice daily after EEG is performed and will be reviewed. Continu e treatment as indicated for possible infection and address kidney issues. It should be noted that c hest x- ray did suggest volume overload pattern and she may benefit from diuresis. LB/MODL Voice ID: [id number] Report ID: [id number]
[2020-09-12 18:56] LABS: Potassium 4.4 mmol/L (3.5-5.1)
[2020-09-12 19:26] LABS: Urine Protein/Creatinine Ratio 4.33 ratio (<0.15)
[2020-09-12] MEDS: CEFTRIAXONE/SWI 1gm 1 GM/10 ML SYR IVP SCH (20:27)
[2020-09-12] MEDS ORDERED: CEFTRIAXONE/SWI 1gm 1 GM/10 ML SYR ONE (20:43)
[2020-09-13] MEDS: ALBUMIN HUMAN 25% 100 ML IV SCH ×3 (01:42→17:01)
[2020-09-13] MEDS: ALBUTEROL 2.5 MG/3 ML NEB SOL NEB SCH ×4 (01:45→20:09)
[2020-09-13] MEDS: IPRATROPIUM BROM 0.5MG/2.5ML IH SCH ×4 (01:45→20:09)
[2020-09-13] MEDS ORDERED: ALBUMIN HUMAN 25% 100 ML IV ONE ×3 (01:58→14:18)
[2020-09-13] MEDS ORDERED: ALBUTEROL 2.5 MG/3 ML NEB SOL ONE ×4 (02:10→20:25)
[2020-09-13] MEDS ORDERED: IPRATROPIUM BROM 0.5MG/2.5ML ONE ×4 (02:10→20:26)
[2020-09-13 02:21] LABS: Absolute Lymphocytes (CBC) 1.6 K/uL (0.7-4.9); Basophils % 0.8 % (0-1.3); Hematocrit 26.7 % (36.0-45.0); Lymphocytes % 25.1 % (15.3-44.8); MPV 9.4 fL (7.6-11.3); RBC Red Blood Cell Count 2.59 M/uL (3.86-4.86)
[2020-09-13] MEDS: PANTOPRAZOLE INJ 80 MG in NA CHLORIDE 0.9% 250 ML IV SCH ×3 (05:39→21:43)
[2020-09-13] MEDS: OCTREOTIDE 500 MCG in NA CHLORIDE 0.9% 500 ML IV SCH ×3 (05:43→21:48)
[2020-09-13] MEDS ORDERED: CEFAZOLIN/SWI 1gm 0 GM/0 ML SYR ONE (05:59)
[2020-09-13] MEDS ORDERED: LIDOCAINE 2% MPF 5 ML VIAL ONE (06:14)
[2020-09-13] MEDS ORDERED: propofoL 200 MG/20 ML VIAL IV ONE ×3 (06:14→12:02)
[2020-09-13] MEDS ORDERED: KETAMINE HCL 500 MG/5 ML VIAL ONE (06:15)
[2020-09-13] MEDS ORDERED: Phenylephrine HCl 10 MG/ML 1 ML VIAL ONE (06:17)
[2020-09-13 06:25] LABS: Albumin 2.9 g/dL (3.4-5.0); Phosphorus 4.1 mg/dL (2.5-4.9); Potassium 4.1 mmol/L (3.5-5.1)
[2020-09-13] MEDS ORDERED: HEPARIN 5000 UNIT/ML 1 ML VIAL ONE ×2 (06:27→06:40)
[2020-09-13] MEDS ORDERED: LIDOCAINE 1% MPF 30 ML VIAL ONE (06:27)
[2020-09-13] MEDS ORDERED: NA CHLORIDE 0.9% 100 ML IV ONE (06:27)
[2020-09-13] MEDS ORDERED: NS 0.9% VIAL 10 ML ONE ×2 (06:29→06:40)
[2020-09-13] MEDS ORDERED: NA CHLORIDE 0.9% 500 ML ONE ×2 (06:33→06:42)
[2020-09-13] MEDS ORDERED: CEFAZOLIN SODIUM 1 GM/VIAL ONE (07:03)
[2020-09-13] MEDS: FOLIC ACID 1 MG TABLET PO SCH ×2 (07:14→20:10)
[2020-09-13] MEDS: AMIODARONE HCL 200 MG TAB PO SCH (07:14)
[2020-09-13] MEDS: Rifaximin 550 MG Tab PO SCH ×2 (07:20→20:17)
--- NOTE | 2020-09-13 07:20 | P.OP ---
Die Cutter Apprentice: NONE,NONE Preoperative diagnosis: ARF Postoperative diagnosis: same Primary procedure: RIJ Darci Catheter Secondary procedure: Fluoroscopy Anesthesia: General Estimated blood loss: min Specimen: none Findings: Normal Anatomy Complications: None Transferred to: Recovery Room Condition: Good
--- NOTE | 2020-09-13 07:38 | P.PN ---
Subjective Date of Service: 09/13/20 Chief Complaint: UGIB No new changes this morning. Physical Examination - Vital Signs Temperature: 97.4 F Blood Pressure: 92/73 Pulse: 58 Respirations: 21 Pulse Ox (%): 95 - Physical Exam General: Confused HEENT: Atraumatic, Normocephalic Neck: Supple Respiratory: Diminished Cardiovascular: Edema Gastrointestinal: Ascites Musculoskeletal: Swelling Integumentary: Other (Normal temp) Neurological: Other (Disoriented) Urinary: Other (no bladder distention) External genitalia: Deferred Rectal: Deferred Assessment And Plan - Plan # DENNIS 2/2 HRS + ischemic ATN Baseline SCr 1.0 in April 2014 Currently oligo-anuric Clinical data not consistent with secondary hyperaldosteronism from advanced liver disease. Therefore there is no role for john doses of mineralocorticoid receptor antagonist therapy to attempt to improve natriuresis. Her intact PTH is significantly elevated at 192 which may indicate that she has advanced CKD at baseline. However, her renal ultrasound showed normal-sized kidneys with renal cortex normal thickness. Therefore, we do not have clear evidence that she is truly ESRD at this point. I discussed with Marc, daughter, and attending physician Dr. Fox. Marc would like to proceed with continuing to provide treatment that may still potentially reverse her renal failure from HRS. As such, the goal for the next several days is to maintain her MAP consistently > 70. Start Levophed drip. I increased her midodrine dose to 15 mg po tid to allow faster weaning of IV pressor. May proceed w/ dialysis initiation today which we would be glad to provide for short-term only. Given her to compensated liver disease, ideally she should be on CRRT rather than intermittent HD to prevent cerebral edema. as we are unable to CONTOUR GRINDER, we will need to minimize blood flow and dialysate flow rates during intermittent HD, to prevent cerebral edema. Low flow HD 2 hours today, 3 hours tomorrow, and 3 hours on Wednesday HD access: catheter She is not a candidate for chronic/long-term HD as she is not a liver transplant candidate at this time. The family and Marc are very realistic with her poor prognosis. Monitor input and output Monitor renal panel # Nephrotic-range proteinuria Random urine protein-cr ratio 4.3 g Follow-up proteinuria workup # Advanced/decompensated liver dse probably 2/2 obesity-related HAYWOOD vs cryptogenic No history of heavy alcohol use or hepatitis History of obesity Not a liver transplant candidate given how sick & debilitated she is, and therefore I agree with her not needing to be transferred to a liver transplant hospital at this time Continue midodrine and octreotide May DC IV albumin MAP goal > 70 Wean off IV vasopressor as able # UGIB EGD today # Anemia Retacrit # Anasarca Initiate HD today # PAfib, CHF BNP significantly elevated +troponin leak Management per other services # COPD Mngt per other services # Hx of CVA Head CT showing chronic subdural hematoma Per other services # Dispo Poor prognosis Now DNR Further goals of care discussion ongoing
[2020-09-13] MEDS ORDERED: LIDOCAINE 4% PATCH ONE (08:12)
--- NOTE | 2020-09-13 08:25 | RAD REPORT ---
EXAM DESCRIPTION: RAD - Chest Single View - 09/13/2020 7:49 am CLINICAL HISTORY: S/P Darci Chest pain. COMPARISON: Chest Single View dated 09/12/2020; Chest Single View dated 09/10/2020 FINDINGS: Portable technique limits examination quality. Right-sided venous catheter has been placed with its tip in the SVC/right atrium junction. No postpro cedure pneumothorax.
[2020-09-13] MEDS: levETIRAcetam 250 MG in NA CHLORIDE 0.9% 100 ML IV SCH ×2 (08:31→20:10)
[2020-09-13] MEDS: FOLIC ACID 1 MG in NA CHLORIDE 0.9% 50 ML IV SCH (08:31)
[2020-09-13] MEDS: LIDOCAINE 4% PATCH TD SCH (08:31)
[2020-09-13 08:34] LABS: Rheumatoid Factor NEG (NEG)
--- NOTE | 2020-09-13 08:34 | RAD REPORT ---
EXAM DESCRIPTION: RAD - Fluoroscopy <1 Hour - 09/13/2020 7:48 am CLINICAL HISTORY: Venous catheter insertion. CENTRAL LINE PLACEMENT COMPARISON: No comparisons FINDINGS: Fluoroscopic imaging is submitted from placement of a venous catheter. Details of the pro cedure not available. Fluoroscopy time: 2.1 minutes
[2020-09-13] MEDS: COLLAGENASE 30 GM OINTMENT TOP SCH (08:49)
[2020-09-13] MEDS: ZINC OXIDE 20% OINTMENT 60gm TOP SCH ×3 (08:49→20:18)
[2020-09-13] MEDS: NYSTATIN PWDR 100000 UNIT/GM TOP SCH ×2 (08:50→20:11)
--- NOTE | 2020-09-13 08:55 | ECHO ---
HEIGHT: 5 ft 4 in WEIGHT: 194 lb 9.6 oz DATE OF STUDY: 09/12/[address]: Stephen Fox MD 2-DIMENSIONAL: YES M.MODE: YES DOPPLER: YES COLOR FLOW: YES TDS: NO PORTABLE: YES DEFINITY: NO BUBBLE STUDY: NO DIAGNOSIS: PHYSICIAN ORDER CARDIAC HISTORY: CATHERIZATION: NO SURGERY: NO PROSTHETIC VALVE: NO PACEMAKER: NO MEASUREMENTS (cm) DIASTOLIC (NORMALS) SYSTOLIC (NORMALS) IVSd 1.0 (0.6-1.2) LA Diam 3.2 (1.9-4.0) LVEF 77% LVIDd 4.2 (3.5-5.7) LVIDs 2.3 (2.0-3.5) %FS 45% LVPWd 1.1 (0.6-1.2) Ao Diam 2.6 (2.0-3.7) 2 DIMENSIONAL ASSESSMENT: RIGHT ATRIUM: NORMAL LEFT ATRIUM: NORMAL RIGHT VENTRICLE: NORMAL LEFT VENTRICLE: NORMAL TRICUSPID VALVE: NORMAL MITRAL VALVE: MITRAL ANNULAR CALCIFICATION PULMONIC VALVE: NORMAL AORTIC VALVE: SCLEROSIS PERICARDIAL EFFUSION: NONE AORTIC ROOT: NORMAL LEFT VENTRICULAR WALL MOTION: NORMAL DOPPLER/COLOR FLOW: NORMAL COMMENTS: MITRAL ANNULAR CALCIFICATION. AORTIC SCLEROSIS. NORMAL LEFT VENTRICULAR SIZE AND FUNCTION. TECHNOLOGIST: David SPANGLER
--- NOTE | 2020-09-13 11:06 | PREOPCON ---
Date of Consultation: 09/12/2020 Reason: The patient needs dialysis. History Of Present Illness: The patient is a 75-year-old female with multiple medical problems, came in with confusion and was found to have elevated BUN and creatinine with hepatorenal syndrome and re quires urgent dialysis. I was contacted by Dr. Rodríguez regarding the need for dialysis and he felt that a Darci catheter should suffice for the time being. The patient is on Coumadin and we will ho ld that, give the patient Lovenox, and we will proceed with Darci catheter placement. Consent was obtained from the family and they understood risks, benefits, and alternatives and agreed to procedur e. There was no sore throat, runny nose, cough, headaches, or dizziness. No chest pain. No fever o r chills. Review of Systems: Otherwise unremarkable. Past Medical History: Significant for COPD, atrial fibrillation, hypertension, obesity. Past Surgical History: Surgery for a fracture the patient had recently. Allergies: REVIEWED, PENICILLINS. Social History: The patient does not smoke or drink alcohol. Lives in a group home. Physical Examination: Vital Signs: Stable. Her blood pressure is 100, systolic. Heart rate is between 50 and 65. She is afebrile. General: She is awake, alert, confused. Head and Neck: No masses. Chest: Clear with diminished sounds in the bases. Heart: S1, S2. Abdomen: Soft. Extremities: Neurovascularly intact. Neuro: Nonfocal. Laboratory Data: H and H 8.9 and 26.7, platelets are 79,000. INR is 2.13. Chemistry shows BUN of 8 0, creatinine of 3.52. Assessment: Acute renal failure in a patient with hepatorenal syndrome. Recommendations: We will proceed with Darci catheter placement. Family understands the risks, alexi efits, and alternatives and agrees to procedure. /MODL Voice ID: [id number] Report ID: [id number]
[2020-09-13] MEDS ORDERED: LIDOCAINE 1% MPF 5 ML VIAL ONE (11:37)
[2020-09-13] MEDS ORDERED: NA CHLORIDE 0.9% 1,000 ML ONE (11:46)
[2020-09-13] MEDS: NOREPINEPHRINE 4 MG in D5W 250 ML IV PRN (13:06)
[2020-09-13] MEDS ORDERED: MIDODRINE HCL 5 MG TABLET PO PRN (17:48)
[2020-09-13] MEDS: ALTEPLASE 2 MG/VIAL IV SCH ×2 (20:00→21:51)
--- NOTE | 2020-09-13 20:10 | OP ---
Date of Procedure: 09/13/2020 Surgeon: Bryant De Santiago MD Gas Meter Prover: None. Preoperative Diagnosis: Acute renal failure. Postoperative Diagnosis: Acute renal failure. Procedure: Placement of right IJ Darci catheter and interpretation of intraoperative fluoroscopy. Estimated Blood Loss: Minimal. Specimen: None. Findings: Normal anatomy. Anesthesia: General. Complications: None. Disposition: The patient tolerated the procedure in stable condition, taken to Recovery in good gene ral condition. Procedure In Detail: The patient was brought to the OR and placed in supine position. General anest hesia was begun. The patient was prepped and draped in the usual sterile fashion. Lidocaine 1% infi ltrated locally. An 18-gauge needle was used to access the right IJ vein. The mid right IJ vein was attempted first. Then, the right subclavian vein. Guidewire was difficult to pass in both those lo cations. Therefore, an anterior midline approach was utilized. Dr. Duenas helped in the access of iraida t vein, and guidewire was passed and position confirmed with fluoroscopy. Then, Seldinger technique used and the vein dilated, and tip of the catheter placed in the SVC under fluoroscopy. Catheter flu shed with heparin, packed with heparin with good blood flow. Then, 3-0 chromic and 3-0 nylon were us ed to secure the tube to the chest wall. Sterile dressing was applied. The patient was awakened and taken to Recovery in good general condition, and chest x-ray has been ordere dKike CABRERA/DLIIP Voice ID: [id number] Report ID: [id number]
[2020-09-13] MEDS: CEFTRIAXONE/SWI 1gm 1 GM/10 ML SYR IVP SCH (20:20)
[2020-09-13] MEDS ORDERED: CEFTRIAXONE/SWI 1gm 1 GM/10 ML SYR ONE (20:40)
--- NOTE | 2020-09-13 23:24 | OP ---
Surgeon: Anatoly Gaitan MD Procedure Performed: Esophagogastroduodenoscopy. Indication For Procedure: Suspected GI bleed, anemia. Plan For Anesthesia: Monitored anesthesia care. Complexity: High due to patient's severe comorbidities. Technique: After obtaining informed consent from the patient's daughter and explaining risks and com plications which include, but are not limited to bleeding, infection, perforation, and anesthesia com plications the patient was placed in a left lateral position. Sedation was given. From then on the scope was advanced into the mouth and carefully guided up to the second portion of the duodenum. The re was no evidence of active bleeding. Subsequently, the mucosa was carefully examined. After the c ompletion of examination, scope and equipment were withdrawn and procedure was terminated in a safe m edgardo. No biopsies were taken due to the patient's coagulopathy, thrombocytopenia, and recent antico agulation use. Findings: Esophagus: In the back of the throat, there was quite a bit of mucus that had to be sucti oned by the anesthesiologist. Subsequently, I passed the scope down into the esophagus. The upper a nd mid portion of the esophagus were normal. In the distal portion, there was around grade 1 to 2 va rices seen. No high-risk stigmata or stigmata of recent bleeding seen. Stomach: Diffuse moderate erythema consistent with portal hypertensive gastropathy was seen in the a ntrum and body. A few dispersed erosions were also seen in the antrum. No source of GI bleeding, ho liz, report of hypertensive gastropathy can result in oozing of blood due to coagulopathy, thromboc ytopenia, and anticoagulation. Duodenum: The second and the bulb and second portion were normal. Complications: None. Tolerance To Anesthesia: Excellent. Postoperative Diagnoses: Small esophageal varices, portal hypertensive gastropathy. Plan: Continue current management. PPI. Stop octreotide tomorrow. Avoid the coagulopathy getting worse. The patient's condition remained critical. GI will follow as needed. US/MODL Voice ID: [id number] Report ID: [id number]
[2020-09-14] MEDS ORDERED: ALBUMIN HUMAN 25% 100 ML IV ONE (02:30)
[2020-09-14] MEDS: ALBUMIN HUMAN 25% 100 ML IV SCH ×3 (02:38→16:48)
[2020-09-14] MEDS: IPRATROPIUM BROM 0.5MG/2.5ML IH SCH ×3 (02:50→14:00)
[2020-09-14] MEDS: ALBUTEROL 2.5 MG/3 ML NEB SOL NEB SCH ×3 (02:50→14:00)
[2020-09-14] MEDS ORDERED: IPRATROPIUM BROM 0.5MG/2.5ML ONE ×3 (03:18→14:30)
[2020-09-14] MEDS ORDERED: ALBUTEROL 2.5 MG/3 ML NEB SOL ONE ×3 (03:18→14:30)
[2020-09-14 05:00] LABS: Absolute Lymphocytes (CBC) 1.9 K/uL (0.7-4.9); Hematocrit 25.4 % (36.0-45.0); Lymphocytes % 21.6 % (15.3-44.8); MPV 9.6 fL (7.6-11.3); RBC Red Blood Cell Count 2.41 M/uL (3.86-4.86)
[2020-09-14 05:16] LABS: Albumin 3.3 g/dL (3.4-5.0); Phosphorus 4.2 mg/dL (2.5-4.9); Potassium 3.8 mmol/L (3.5-5.1)
[2020-09-14 05:39] LABS: Anisocytosis 2+; Blood Morphology Comment NOTED (NOT SEEN); Hypochromasia 2+; Macrocytosis 1+; Platelet Estimate DECR; Polychromasia SLIGHT; Target Cells 1+
[2020-09-14] MEDS: PANTOPRAZOLE INJ 80 MG in NA CHLORIDE 0.9% 250 ML IV SCH ×2 (05:44→16:53)
[2020-09-14] MEDS: OCTREOTIDE 500 MCG in NA CHLORIDE 0.9% 500 ML IV SCH ×2 (05:45→19:14)
[2020-09-14] MEDS: NOREPINEPHRINE 4 MG in D5W 250 ML IV PRN ×3 (05:45→20:22)
[2020-09-14] MEDS: AMIODARONE HCL 200 MG TAB PO SCH (07:19)
[2020-09-14] MEDS: Rifaximin 550 MG Tab PO SCH ×2 (07:19→20:27)
[2020-09-14] MEDS: FOLIC ACID 1 MG TABLET PO SCH ×2 (07:19→20:26)
[2020-09-14] MEDS ORDERED: ALTEPLASE 2 MG/VIAL IV SCH (07:30)
[2020-09-14] MEDS ORDERED: WATER FOR INJ,STERILE 10 ML ONE (07:54)
[2020-09-14] MEDS: FOLIC ACID 1 MG in NA CHLORIDE 0.9% 50 ML IV SCH (08:51)
[2020-09-14] MEDS: NYSTATIN PWDR 100000 UNIT/GM TOP SCH ×2 (08:52→20:25)
[2020-09-14] MEDS: ZINC OXIDE 20% OINTMENT 60gm TOP SCH ×3 (08:53→20:24)
[2020-09-14] MEDS: COLLAGENASE 30 GM OINTMENT TOP SCH (08:53)
[2020-09-14] MEDS: LIDOCAINE 4% PATCH TD SCH (09:03)
[2020-09-14] MEDS: levETIRAcetam 250 MG in NA CHLORIDE 0.9% 100 ML IV SCH ×2 (09:03→20:22)
[2020-09-14] MEDS ORDERED: ALBUMIN HUMAN 25% 50 ML IV ONE ×3 (09:19→16:31)
[2020-09-14] MEDS ORDERED: LIDOCAINE 4% PATCH ONE (09:22)
--- NOTE | 2020-09-14 09:29 | P.PN ---
Date of Service: 09/13/20 Subjective Spoke with Nephrology and they want try a vasopressors to support blood pressure prior to starting hemodialysis. Dialysis access catheter placed this morning. If patient does start retaining fluid will have access to start hemodialysis. Spoke with Gastroenterology who spoke with liver transplant center and they recommended no aggressive transplant intervention. They did recommend EGD for further evaluation which was performed which revealed portal gastropathy with grade 1 gastric varices. Review of Systems 10-point ROS is otherwise unremarkable Physical Examination - Vital Signs Reviewed - Physical Exam General: Confused HEENT: Atraumatic, Normocephalic Respiratory: Crackles/rales Cardiovascular: Regular rate/rhythm, Normal S1 S2, Systolic murmur Gastrointestinal: Normal bowel sounds, Soft and benign, Non-distended, Tenderness Musculoskeletal: No clubbing, No swelling Neurological: Abnormal gait, Abnormal speech, Abnormal strength Assessment & Plan - Problems (Diagnosis) (1) UGIB (upper gastrointestinal bleed) Current Visit: Yes Status: Acute (2) Afib Current Visit: Yes Status: Chronic Atrial fibrillation type: paroxysmal Qualified Code(s): I48.0 - Paroxysmal atrial fibrillation (3) CHF (congestive heart failure) Current Visit: Yes Status: Chronic Heart failure type: unspecified Heart failure chronicity: chronic Qualified Code(s): I50.9 - Heart failure, unspecified (4) COPD (chronic obstructive pulmonary disease) Current Visit: Yes Status: Chronic COPD type: unspecified COPD Qualified Code(s): J44.9 - Chronic obstructive pulmonary disease, unspecified (5) Cirrhosis Current Visit: Yes Status: Chronic Hepatic cirrhosis type: unspecified hepatic cirrhosis Ascites presence: with ascites Qualified Code(s): K74.60 - Unspecified cirrhosis of liver; R18.8 - Other ascites (6) HTN (hypertension) Current Visit: Yes Status: Chronic Hypertension type: essential hypertension Qualified Code(s): I10 - Essential (primary) hypertension (7) History of CVA (cerebrovascular accident) Current Visit: Yes Status: Chronic - Plan Plan: 1. Status post hemodialysis access catheter in EGD. Results in the chart; continue vasopressor support per the recommendation. 2. Monitor H&H 3. CT of the brain with a chronic subdural hematoma. Family unsure as to when this occurred. 4. Neurology consultation, gastroenterology consultation, and Nephrology consultation appreciated. 5. Patient with hepatorenal syndrome. Will continue with albumin IV. Will also set up hemodialysis. 6. Monitor hemodynamics closely; echocardiogram pending 7. Neurochecks Q 4 8. Continue with anti epileptic per Neurology recommendation an EEG was scheduled but unable to be performed as helicopter technician not available after all the procedures were done today 9. GI and DVT - Advance Directives Does patient have a Living Will: No Does patient have a Durable POA for Healthcare: No - Critical care time Critical care time spent with patient care was 60 minutes
[2020-09-14] MEDS ORDERED: LIDOCAINE 1% MPF 30 ML VIAL ONE (11:03)
--- NOTE | 2020-09-14 11:10 | P.OP ---
Preoperative diagnosis: Acute Renal Failure Postoperative diagnosis: Acute Renal Failure Primary procedure: Placement of RIGHT femoral temporary hemodialysis catheter Secondary procedure: Micro-introducer set used -ultrasound guidance Anesthesia: Local 1% lidocaine Estimated blood loss: <5cc Specimen: none Findings: dark non-pulsatile blood returned Complications: None Implants: mahauker temporary hemodialysis catheter Transferred to: ICU Condition: Serious
[2020-09-14] MEDS ORDERED: IPRATROPIUM BROM 0.5MG/2.5ML IH PRN (14:23)
[2020-09-14] MEDS ORDERED: ALBUTEROL 2.5 MG/3 ML NEB SOL NEB PRN (14:23)
--- NOTE | 2020-09-14 14:58 | CON ---
Date of Consultation: 09/14/2020 Brief History Of Present Illness: Information is obtained primarily from the chart as the patient is confused during my examination and minimally responsive. The patient is a 75-year-old female with s ignificant medical history of COPD, AFib, hypertension, who had a recent fall, fracture, who is livin g in assisted facility. She apparently had worsening renal function and was brought in with elev ation of her BUN and creatinine and evidence of hepatorenal syndrome and a possible diagnosis of cirr hosis also from uncertain etiology. The patient was maintained on Coumadin at home as well with Lasi x and had anasarca. She has been deemed appropriate for hemodialysis and at this point, a hemodialys is catheter was placed in her right internal jugular vein. The catheter was found to be functioning, but not of adequate volume as such the pressures were high on the dialysis machine and it was reques zafar to place an additional hemodialysis catheter to continue hemofiltration. Past Medical History: Significant for COPD, AFib, hypertension, CVA, falls with fractures, hepatoren al syndrome, cirrhosis, acute renal failure, chronic renal insufficiency. Past Surgical History: Unable to obtain other than per chart, which is surgical repair fracture and placement of right IJ hemodialysis catheter and upper endoscopy. Social History: She lives in a assisted. No history of smoking, drinking or recreational drug u se reported. Review of Systems: Unable to obtain. Physical Examination: Vital Signs: At the time of my examination; the patient was being maintained on pressor support. Bl ood pressure 110/61, pulse 60, respiratory rate 17, temperature 97.2. General: She is awake and lethargic, but arousable. She is nonverbal other than moaning, grunting, and unable to discern specific words. She mumbles. Otherwise, she has diffuse anasarca. Chest: Decreased inspiratory effort bilaterally and rales bilaterally. Cardiovascular: Regular rate and rhythm with a systolic murmur. Abdomen: Soft, nontender, nondistended. Extremities: 1+ edema. Her bilateral upper extremities are wrapped. Skin: She has psoriasis and possible fungal infection over her lower abdomen and some psoriatic obrien ges to her bilateral inguinal areas. Laboratory Data: She had a laboratory exam, which revealed a white blood cell count of 9.0, hemoglob in is 8.3, hematocrit of 25.4, platelet count was 92. Her sodium 147, potassium 3.8, chloride 115, c arbon dioxide 22, BUN 76, creatinine 3.57. Her glucose was 127, her GFR is 12, calcium was 8.3, phos phorus was 4.2, albumin 3.3. PTH was 191. She had imaging performed, which had a chest x-ray on , officially read as right-sided venous catheter's tip in the SVC right atrium junction. No postpr ocedural pneumothorax. She had a renal ultrasound on 09/12, officially read as benign right renal cy sts present. No hydronephrosis evident. Abdomen and pelvis CT on 09/10 was performed, officially re ad as small right pleural effusion, small amount of ascites, nodular contour of liver probably indica merly chronic disease. She had a CT of her head on 09/11, officially read as right convexity chronic s ubdural hematoma suspected measuring 10 mm in thickness. No significant midline shift evidence. Assessment And Plan: This is a 75-year-old female with multiple medical problems as described with a cute hepatorenal syndrome with declining renal function and need for hemodialysis. I have explained the risks, benefits, and alternatives of placement of a temporary hemodialysis catheter including, bu t not limited to bleeding, infection, damage to surrounding tissues, need for further operations or p rocedures. The patient's family agrees to proceed. Thank you for this interesting consult. EPIFANIO/DILIP Voice ID: [id number] Report ID: [id number]
--- NOTE | 2020-09-14 15:12 | OP ---
Date of Procedure: 09/14/2020 Surgeon: Edwardo Boateng MD, Preoperative Diagnosis: Acute renal failure. Postoperative Diagnosis: Acute renal failure. Procedure Performed: Placement of right femoral temporary hemodialysis catheter with microintroducer set and ultrasound guidance. Anesthesia: Local 1% lidocaine used. Estimated Blood Loss: Less than 5 mL. Specimen: None. Findings: Dark nonpulsatile blood return. Complications: None. Implants: Mahurkar temporary hemodialysis catheter placed. Disposition: The patient remained in ICU in serious condition throughout the procedure. Procedure In Detail: After informed consent was obtained, the patient was prepped and draped in the usual sterile fashion after adequate anesthesia achieved. Ultrasound guidance allowed for cannulatio n of the right femoral vein on the first attempt with a microintroducer set. I then cannulated the r ight femoral vein on first attempt. Dark red nonpulsatile blood was returned and a microwire was adv anced at this point easily. The needle was removed and I made a small naomi incision after placing th e introducer sheath using Seldinger technique over the microwire. At this point, I performed removal of the wire after the introducer sheath was in place and advanced the standard wire into the femoral vein without evidence of complication. I then removed the microintroducer sheath and performed sequ ential dilatation using Seldinger technique to advance the Mahurkar catheter into the right femoral v ein without evidence of complication. The standard wire was removed at this point. Both ports flush ed and withdrew quite easily and were both flushed until completely clear with sterile saline and the n packed with heparin at this point. The catheter was then secured to the skin using an attached 2-0 nylon suture and a sterile dressing placed over top. The patient tolerated the procedure well witho ut evidence of complication and transferred to PACU in good condition. All counts were correct at th e end of the case. TK/MODL Voice ID: [id number] Report ID: [id number]
[2020-09-14] MEDS: CEFTRIAXONE/SWI 1gm 1 GM/10 ML SYR IVP SCH (20:22)
[2020-09-14] MEDS ORDERED: CEFTRIAXONE/SWI 1gm 1 GM/10 ML SYR ONE (20:39)
[2020-09-15] MEDS: ALBUMIN HUMAN 25% 100 ML IV SCH ×3 (02:05→15:50)
[2020-09-15] MEDS ORDERED: ALBUMIN HUMAN 25% 100 ML IV ONE (02:22)
--- NOTE | 2020-09-15 03:14 | PN ---
Date of Progress Note: 09/14/2020 Chief Complaint: Upper GI bleeding, acute kidney injury secondary to hepatorenal syndrome, complicat ed by ischemic acute tubular necrosis. Baseline creatinine level is 1.0. Back in April 2014 lab work was obtained and showed creatinine of 1.0. The patient is currently oliguric, anuric. The francisco ent has advanced liver disease. She was found to have elevated intact PTH corresponding with advance d chronic kidney disease at baseline. The patient had renal ultrasound, which showed normal-sized ki dneys with renal cortical thickness preserved grossly. The patient although has high risk of irrever sible acute kidney injury in the setting of severe hepatorenal syndrome with ATN. The patient is thelma lysis dependent and she is to start dialysis although catheter was not working and today she requires catheter exchange. Review of Systems: General: The patient is confused. Cannot provide review of systems. Lungs: Clear to auscultation bilaterally. Heart: S1, S2. Abdomen: Soft. Extremities: Edema present. Impression And Plan: 1.Acute kidney injury, severe. Continue dialysis. The patient underwent dialysis today and monitor blood pressure. Plan is to use midodrine for blood pressure support as needed. 2.The patient is on Levophed drip. Monitor blood pressure. Increase midodrine. Currently, the pat ient is taking midodrine 15 mg 3 times per day for hepatorenal syndrome and for blood pressure suppor t. 3.Anemia. Monitor hemoglobin level. The patient may benefit from blood transfusion. 4.Generalized weakness, deconditioning, chronic liver disease. Further recommendation from primary team. NOEMI/MODL Voice ID: [id number] Report ID: [id number]
[2020-09-15 04:52] LABS: Absolute Lymphocytes (CBC) 1.7 K/uL (0.7-4.9); Basophils % 1.1 % (0-1.3); Hematocrit 25.1 % (36.0-45.0); Lymphocytes % 20.8 % (15.3-44.8); MPV 9.5 fL (7.6-11.3); RBC Red Blood Cell Count 2.42 M/uL (3.86-4.86)
[2020-09-15 05:06] LABS: Albumin 3.5 g/dL (3.4-5.0); Phosphorus 3.2 mg/dL (2.5-4.9); Potassium 3.6 mmol/L (3.5-5.1)
[2020-09-15] MEDS: OCTREOTIDE 500 MCG in NA CHLORIDE 0.9% 500 ML IV SCH ×2 (05:33→16:11)
[2020-09-15] MEDS: PANTOPRAZOLE INJ 80 MG in NA CHLORIDE 0.9% 250 ML IV SCH ×2 (05:33→16:11)
[2020-09-15] MEDS: NOREPINEPHRINE 4 MG in D5W 250 ML IV PRN ×3 (05:44→21:38)
[2020-09-15] MEDS: AMIODARONE HCL 200 MG TAB PO SCH (06:55)
[2020-09-15] MEDS: FOLIC ACID 1 MG TABLET PO SCH ×2 (06:55→20:42)
[2020-09-15] MEDS: Rifaximin 550 MG Tab PO SCH ×2 (06:55→20:41)
[2020-09-15] MEDS: NYSTATIN PWDR 100000 UNIT/GM TOP SCH ×2 (07:19→20:41)
[2020-09-15] MEDS: COLLAGENASE 30 GM OINTMENT TOP SCH (07:19)
[2020-09-15] MEDS: ZINC OXIDE 20% OINTMENT 60gm TOP SCH ×3 (07:20→20:41)
[2020-09-15] MEDS: LIDOCAINE 4% PATCH TD SCH (07:33)
[2020-09-15] MEDS ORDERED: LIDOCAINE 4% PATCH ONE (07:53)
[2020-09-15] MEDS: FOLIC ACID 1 MG in NA CHLORIDE 0.9% 50 ML IV SCH (08:42)
[2020-09-15] MEDS: levETIRAcetam 250 MG in NA CHLORIDE 0.9% 100 ML IV SCH ×2 (09:55→20:40)
[2020-09-15] MEDS: AA 5%/D20W/ELECTROLYTES-TPN 2,000 ML, Lipids 20% 250 ML with MULTIVITAMINS INJ 10 ML IV SCH ×3 (16:02)
[2020-09-15] MEDS ORDERED: AA 5%/D20W/ELECTROLYTES-TPN 2,000 ML, Lipids 20% 250 ML with MULTIVITAMINS INJ 10 ML IV SCH ×3 (17:00)
--- NOTE | 2020-09-15 18:46 | P.PN ---
Date of Service: 09/14/20 Subjective Patient is clinically doing better. Patient's dialysis catheter was not working today so we had to replace the catheter. Darci catheter placed in the right femoral vein. Will removal right subclavian Darci catheter if patient's coags are stable. Patient has some bleeding from that area. Recheck PT PTT. Review of Systems 10-point ROS is otherwise unremarkable Physical Examination - Vital Signs Reviewed - Physical Exam General: Confused Respiratory: Crackles/rales Cardiovascular: Regular rate/rhythm, Normal S1 S2, Systolic murmur Gastrointestinal: Normal bowel sounds, Soft and benign, Non-distended, Tenderness Musculoskeletal: No clubbing, No swelling Neurological: Abnormal gait, Abnormal speech, Abnormal strength Assessment & Plan - Problems (Diagnosis) (1) UGIB (upper gastrointestinal bleed) Current Visit: Yes Status: Resolved (2) Afib Current Visit: Yes Status: Chronic Atrial fibrillation type: paroxysmal Qualified Code(s): I48.0 - Paroxysmal atrial fibrillation (3) CHF (congestive heart failure) Current Visit: Yes Status: Chronic Heart failure type: unspecified Heart failure chronicity: chronic Qualified Code(s): I50.9 - Heart failure, unspecified (4) COPD (chronic obstructive pulmonary disease) Current Visit: Yes Status: Chronic COPD type: unspecified COPD Qualified Code(s): J44.9 - Chronic obstructive pulmonary disease, unspecified (5) Cirrhosis Current Visit: Yes Status: Chronic Hepatic cirrhosis type: unspecified hepatic cirrhosis Ascites presence: with ascites Qualified Code(s): K74.60 - Unspecified cirrhosis of liver; R18.8 - Other ascites (6) HTN (hypertension) Current Visit: Yes Status: Chronic Hypertension type: essential hypertension Qualified Code(s): I10 - Essential (primary) hypertension (7) History of CVA (cerebrovascular accident) Current Visit: Yes Status: Chronic - Plan Plan: 1. Status post hemodialysis access catheter in EGD. Results in the chart; continue vasopressor support per the recommendation. 2. Hemoglobin is on the lower side at 8.2. Not really dropping substantially. Patient has been on octreotide for greater than 72 hr. Will go ahead and Dc this. No signs of active bleeding. Will go ahead and change Protonix to IV Q 12; EGD just revealed portal gastropathy with grade 1 varices. No active bleeding 3. CT of the brain with a chronic subdural hematoma. Family unsure as to when this occurred. Will go ahead and repeat CT scan if mentation does not improve after 3 dialysis sessions 4. Neurology consultation, gastroenterology consultation, and Nephrology consultation appreciated. 5. Patient with hepatorenal syndrome. Will continue with albumin IV as needed. Continue with midodrine. Started hemodialysis today inpatient as tolerated id. Blood pressure has been stable. Continue with Levophed drip 6. Monitor hemodynamics closely; continue on Levophed at this time. echocardiogram with normal systolic function. No valvular abnormality 7. Neuro is stable. 8. Continue with anti epileptic per Neurology recommendation an EEG was scheduled but unable to be performed as radiologic technician not available after all the procedures were done today 9. Patient at this time is a DNR status. Will go ahead and transfer to the general medical floor as long as patient is continuing to improve 10. GI and DVT - Advance Directives Patient is a do not resuscitate after speaking to son and daughter - placement Patient is from alf-[facility]. Patient is a DNR. Family plans on going back to the alf depending on how patient does throughout hospitalization. The patient is not improving then they may consider hospice care, but at this time they want to try to do everything we can to try to get her better short of resuscitation.
--- NOTE | 2020-09-15 18:52 | P.PN ---
Date of Service: 09/15/20 Subjective Patient continuing to do better. Status post hemodialysis. Continue monitoring labs. H&H has been fairly stable. Possible transfer to the general medical floor. (On subjective): Patient is clinically doing better. Patient's dialysis catheter was not working today so we had to replace the catheter. Darci catheter placed in the right femoral vein. Will removal right subclavian Darci catheter if patient's coags are stable. Patient has some bleeding from that area. Recheck PT PTT. Review of Systems 10-point ROS is otherwise unremarkable Physical Examination - Vital Signs Reviewed - Physical Exam General: Confused Respiratory: Crackles/rales Cardiovascular: Regular rate/rhythm, Normal S1 S2, Systolic murmur Gastrointestinal: Normal bowel sounds, Soft and benign, Non-distended, Tenderness Musculoskeletal: No clubbing, No swelling Neurological: Abnormal gait, Abnormal speech, Abnormal strength Assessment & Plan - Problems (Diagnosis) (1) UGIB (upper gastrointestinal bleed) Current Visit: Yes Status: Resolved (2) Afib Current Visit: Yes Status: Chronic Atrial fibrillation type: paroxysmal Qualified Code(s): I48.0 - Paroxysmal atrial fibrillation (3) CHF (congestive heart failure) Current Visit: Yes Status: Chronic Heart failure type: unspecified Heart failure chronicity: chronic Qualified Code(s): I50.9 - Heart failure, unspecified (4) COPD (chronic obstructive pulmonary disease) Current Visit: Yes Status: Chronic COPD type: unspecified COPD Qualified Code(s): J44.9 - Chronic obstructive pulmonary disease, unspecified (5) Cirrhosis Current Visit: Yes Status: Chronic Hepatic cirrhosis type: unspecified hepatic cirrhosis Ascites presence: with ascites Qualified Code(s): K74.60 - Unspecified cirrhosis of liver; R18.8 - Other ascites (6) HTN (hypertension) Current Visit: Yes Status: Chronic Hypertension type: essential hypertension Qualified Code(s): I10 - Essential (primary) hypertension (7) History of CVA (cerebrovascular accident); recent subdural hematoma Current Visit: Yes Status: Chronic (8) History of femur fracture(Dr. Bundy) Current Visit: Yes Status: Chronic - Plan Plan: 1. Status post hemodialysis access catheter; patient tolerating hemodialysis well. continue vasopressor support per the recommendation. 2. Hemoglobin is on the lower side at 8.2. Not really dropping substantially. Patient has been on octreotide for greater than 72 hr; no active bleeding so we stopped this. Will go ahead and change Protonix to IV Q 12; EGD just revealed portal gastropathy with grade [address] of the brain with a chronic subdural hematoma. Family unsure as to when this occurred. Will go ahead and repeat CT scan if mentation does not improve after 3 dialysis sessions 4. Neurology consultation, gastroenterology consultation, and Nephrology consultation appreciated. 5. Patient with hepatorenal syndrome. Will continue with albumin IV as needed. Continue with midodrine. Started hemodialysis yesterday. Blood pressure has been stable. Continue with Levophed drip; gradually weaning off 6. Monitor hemodynamics closely; continue on Levophed at this time. echocardiogram with normal systolic function. No valvular abnormality 7. Neuro is stable. Not really waking up and following commands appropriately. Does answer some questions 8. Continue with anti epileptic per Neurology recommendation an EEG was scheduled but unable to be performed as maintenance service technician not available after all the procedures were done today 9. Patient at this time is a DNR status. Will go ahead and transfer to the general medical floor as long as patient is continuing to improve 10. GI and DVT - Advance Directives Patient is a do not resuscitate after speaking to son and daughter - placement Patient is from skilled nursing-[facility]. Patient is a DNR. Family plans on going back to the skilled nursing depending on how patient does throughout hospitalization. The patient is not improving then they may consider hospice care, but at this time they want to try to do everything we can to try to get her better short of resuscitation.
[2020-09-15] MEDS ORDERED: SODIUM CHLORIDE 0.9% 10ML INJ IV PRN (18:55)
[2020-09-15] MEDS: CEFTRIAXONE/SWI 1gm 1 GM/10 ML SYR IVP SCH (20:41)
[2020-09-15 20:50] LABS: Alpha-1-Globulins 0.3 g/dL (0.2-0.3); Alpha-2-Globulins 0.4 g/dL (0.5-0.9); Gamma Globulins 1.6 g/dL (0.8-1.7); INTERPRETATION REPORT
[2020-09-15] MEDS ORDERED: CEFTRIAXONE/SWI 1gm 1 GM/10 ML SYR ONE (20:52)
[2020-09-15] MEDS: PANTOPRAZOLE 40 MG INJ IVP SCH (20:58)
--- NOTE | 2020-09-15 21:09 | RAD REPORT ---
EXAM DESCRIPTION: Mervat Single View09/14/2020 1:50 am CLINICAL HISTORY: The patient is 75 years old and is Female; PICC placement TECHNIQUE: Frontal view of the chest. COMPARISON: No relevant prior studies available. FINDINGS: Lungs: Diffuse interstitial and airspace opacities bilaterally. Pleural space: Blunting of costophrenic angles; cannot exclude bilateral pleural effusions. No pneumothorax. Heart: Unremarkable. Mediastinum: Unremarkable. Bones/joints: Unremarkable. Tubes, lines and devices: Left PICC with tip in the SVC. IMPRESSION: 1. Diffuse interstitial and airspace opacities bilaterally. 2. Blunting of costophrenic angles; cannot exclude bilateral pleural effusions. Electronically signed by: Pavan Brown MD 09/14/2020 1:59 AM CDT Due to temporary technical issues with the PACS/Fluency reporting system, reports are being signed by the in house radiologists without review as a courtesy to insure prompt reporting. The interpreting radiologist is fully responsible for the content of the report.
[2020-09-15] MEDS ORDERED: PANTOPRAZOLE 40 MG INJ ONE (21:18)
[2020-09-16] MEDS: ALBUMIN HUMAN 25% 100 ML IV SCH ×3 (00:32→17:25)
--- NOTE | 2020-09-16 01:12 | PN ---
Date of Progress Note: 09/15/2020 Chief Complaint: Acute kidney injury, severe, associated with hepatorenal syndrome and leading to is chemic acute tubular necrosis complicated by oliguria, hypotension in setting of liver cirrhosis. Th e patient is oliguric and anuric. She was initiated on dialysis previously. Baseline creatinine lev el back in 2016 was 1.0. The patient was found to have elevated intact PTH corresponding with advanc ed chronic kidney disease at baseline. Renal ultrasound showed normal-sized kidney with renal cortic al thickness preserved grossly. The patient although has high risk of irreversible acute kidney inju ry in the setting of severe hepatorenal syndrome, the patient was initiated on dialysis yesterday. C atheter was exchanged to a femoral Darci temporary catheter. Catheter in the right IJ was malfunct ioning. Dialysis was done yesterday and procedure was well tolerated. Review of Systems: The patient has history of dementia, and she remains confused. She cannot provide review of systems. Physical Examination: Lungs: Clear to auscultation bilaterally. Abdomen: Soft, benign. Extremities: Edema present. Impression And Plan: 1.Acute kidney injury, severe. Continue dialysis. Next dialysis is scheduled for tomorrow. 2.The patient needs blood pressure support. Continue midodrine 15 mg 3 times per day for hepatorena l syndrome, and for blood pressure support, the patient required levophed drip. 3.Anemia, monitor hemoglobin level. The patient may benefit from transfusion. 4.Generalized weakness and deconditioning. Further recommendation from primary team. NOEMI/DILIP Voice ID: [id number] Report ID: [id number]
[2020-09-16 04:13] LABS: HBsAG Nonreactive (Nonreactive)
[2020-09-16 04:40] LABS: Absolute Lymphocytes (CBC) 1.5 K/uL (0.7-4.9); Basophils % 0.8 % (0-1.3); Hematocrit 23.6 % (36.0-45.0); Lymphocytes % 19.3 % (15.3-44.8); MPV 9.7 fL (7.6-11.3); RBC Red Blood Cell Count 2.11 M/uL (3.86-4.86)
[2020-09-16 05:30] VITALS: BMI 35.6
--- NOTE | 2020-09-16 05:47 | P.PN ---
Subjective Date of Service: 09/16/20 Chief Complaint: UGIB Subjective: Other (Alert to name. Confused. Will get EEG, Speech evaluation. Will also get dialysis. On Levophed at 10 mcg, On TPN.) Physical Examination - Vital Signs Temperature: 96.5 F Blood Pressure: 102/80 Pulse: 63 Respirations: 26 Pulse Ox (%): 94 - Studies Microbiology Data (last 24 hrs): 09/10/20 19:57 Blood - Blood Aerobic Blood Culture - Final No growth in 5 days. 09/10/20 19:57 Blood - Blood Anaerobic Blood Culture - Final No growth in 5 days. 09/10/20 19:40 Blood - Blood Aerobic Blood Culture - Final No growth in 5 days. 09/10/20 19:40 Blood - Blood Anaerobic Blood Culture - Final No growth in 5 days. 09/10/20 19:28 Clean Catch Urine Roselle Count - Final >100,000 CFU/ML. 09/10/20 19:28 Clean Catch Urine - Final Staphylococcus Cohnii Assessment & Plan Discharge Plan: Other (Skilled placement versus other) Plan to discharge in: Greater than 2 days Physician Review Additional Text: Physical exam: General: Patient confused. Heart: Regular rate and rhythm Lungs: Clear anteriorly Abdomen: Soft nontender Extremities: Edema to the upper and lower extremities Impression: Melena secondary to upper GI bleed showing portal gastropathy with grade 1 varices Acute renal failure now with end-stage renal disease on hemodialysis likely secondary to hepatorenal syndrome with ATN, nephrotic range proteinuria Chronic diastolic CHF COPD Atrial fibrillation Chronic advance cirrhosis etiology unknown likely related to [place] versus other etiology Hypertension now with hypotension History of CVA with chronic subdural hematoma History of femur fracture without repair UTI, urine culture positive for Staphylococcus Cohni Plan: Melena secondary to upper GI bleed showing portal gastropathy with grade 1 varices: No more active bleeding noted. Patient switched over to Protonix IV twice daily. IV dripsoctreotide and Protonix discontinued. Monitor hemoglobin. Maintain hemoglobin above 7.5. Will monitor closely. No further intervention needed at this time. Patient now DNR. We will continue to monitor closely. Acute renal failure now with end-stage renal disease on hemodialysis likely secondary to hepatorenal syndrome with ATN, nephrotic range proteinuria: Continue continue with CRRT. Will discuss further with nephrology. Nephrology continues with dialysis. If no significant improvement will discuss further about the possibility of hospice. Patient not a great candidate for long-term dialysis due to her poor prognosis. Chronic diastolic CHF: Will discuss with nephrology COPD: Continue medication, maintain oxygen above 93% Atrial fibrillation: Currently on amiodarone. Off anticoagulation therapy due to chronic subdural hematoma. Chronic advanced cirrhosis etiology unknown likely related to [place] versus other etiology: Continue Xifaxan. Patient not a candidate for transplant in the future. Continue with conservative measures. Hypertension now with hypotension: Currently on Levophed. Midodrine added. Off blood pressure medication. History of CVA with chronic subdural hematoma: CT scan showed chronic subdural hematoma. Family unsure when this occurred. Will repeat CT scan after 3 sessions of dialysis and with no improvement. Patient to have a EEG. Currently on Keppra as well. Will discuss further with neurology. History of femur fracture without repair: Patient not a candidate for repair at this time. UTI, urine culture positive for Staphylococcus Cohni: DC Rocephin. Will start vancomycin to cover for infection. Pharmacy to monitor and adjust medication DVT prophylaxis: SCD CODE STATUS: Patient DNR Advance care [id number] minutes: Patient made DNR over the weekend. Will discuss with family concerning plan of care. Patient is from [facility]. If no improvement will need to consider hospice care at the [facility]. Time Spent Managing Pts Care (In Minutes): 55
[2020-09-16 05:56] LABS: Albumin 3.8 g/dL (3.4-5.0); Bilirubin Total 1.8 mg/dL (0.2-1.0); Phosphorus 3.1 mg/dL (2.5-4.9); Potassium 3.6 mmol/L (3.5-5.1); Protein, Total 6.3 g/dL (6.4-8.2)
[2020-09-16] MEDS: NOREPINEPHRINE 4 MG in D5W 250 ML IV PRN (06:44)
[2020-09-16] MEDS: FOLIC ACID 1 MG TABLET PO SCH ×2 (09:00→20:31)
[2020-09-16] MEDS: Rifaximin 550 MG Tab PO SCH ×2 (09:00→20:31)
[2020-09-16] MEDS: AMIODARONE HCL 200 MG TAB PO SCH (09:00)
[2020-09-16] MEDS: NYSTATIN PWDR 100000 UNIT/GM TOP SCH ×2 (09:00→20:28)
[2020-09-16] MEDS ORDERED: FLUCONAZOLE 100 MG TAB PO SCH (09:00)
[2020-09-16] MEDS: ZINC OXIDE 20% OINTMENT 60gm TOP SCH ×3 (09:00→20:28)
[2020-09-16] MEDS: FOLIC ACID 1 MG in NA CHLORIDE 0.9% 50 ML IV SCH (09:18)
[2020-09-16] MEDS: levETIRAcetam 250 MG in NA CHLORIDE 0.9% 100 ML IV SCH ×2 (09:19→23:21)
[2020-09-16] MEDS: NOREPINEPHRINE 8 MG in Dextrose 5%-Water 500 ML IV PRN ×3 (09:20→23:05)
[2020-09-16] MEDS: LIDOCAINE 4% PATCH TD SCH (09:37)
[2020-09-16] MEDS: PANTOPRAZOLE 40 MG INJ IVP SCH ×2 (09:38→23:21)
[2020-09-16] MEDS ORDERED: LIDOCAINE 4% PATCH ONE (09:57)
[2020-09-16] MEDS ORDERED: PANTOPRAZOLE 40 MG INJ ONE ×2 (09:57→20:30)
[2020-09-16] MEDS ORDERED: NS 0.9% VIAL 10 ML ONE (09:57)
[2020-09-16] MEDS ORDERED: VANCOMYCIN/NS 1 gm 1 GM/250 ML BAG IV SCH (13:30)
[2020-09-16] MEDS ORDERED: ALBUMIN HUMAN 25% 200 ML IV ONE ×2 (13:58→18:00)
[2020-09-16] MEDS ORDERED: FLUCONAZOLE IV SCH (14:00)
[2020-09-16 15:19] LABS: Alpha Fetoprotein-Tumor Marker 2.9 ng/mL (<6.1)
[2020-09-16] MEDS: AA 5%/D20W/ELECTROLYTES-TPN 2,000 ML, Lipids 20% 250 ML with MULTIVITAMINS INJ 10 ML IV SCH ×3 (17:25)
[2020-09-16 17:58] VITALS: O2SAT 93
[2020-09-16] MEDS ORDERED: NA CHLORIDE 0.9% 250 ML ONE (20:05)
[2020-09-16] MEDS ORDERED: VANCOMYCIN 1 GM in NA CHLORIDE 0.9% 500 ML IVPB SCH (21:00)
[2020-09-16 21:11] VITALS: TEMP 97
[2020-09-16 22:11] LABS: Albumin, (SPE) 3.2 g/dL (3.8-4.8); Alpha-1-Globulins 0.2 g/dL (0.2-0.3); Alpha-2-Globulins 0.4 g/dL (0.5-0.9); Gamma Globulins 1.4 g/dL (0.8-1.7); INTERPRETATION REPORT
[2020-09-16 23:55] VITALS: BP 135/77
[2020-09-17] MEDS: ALBUMIN HUMAN 25% 100 ML IV SCH (00:59)
--- NOTE | 2020-09-17 02:57 | PN ---
Date of Progress Note: 09/16/2020 Chief Complaint: Acute kidney injury, hepatorenal syndrome, acute tubular necrosis. History Of Present Illness: The patient remains critically ill. She seems hypotensive. Vancomycin will be started for sepsis. With severe hypotension, the patient remains on Levophed. The patient h as history of hepatorenal syndrome which advanced to severe acute kidney injury with ischemic acute t ubular necrosis. Patient remains oliguric. The patient is started on hemodialysis. Today, she was on dialysis and ultrafiltration pa fatou will have IV albumin and blood transfusion prior to dialysis to stabilize blood pressure. The patient remains fluid overloaded. Patient has peripheral edema. Review of Systems: The patient has dementia and cannot provide review of systems as she remains confused. Physical Examination: Lungs: Clear to auscultation bilaterally. Heart: S1 and S2. Abdomen: Soft, benign. Extremities: Edema present. Impression And Plan: 1.Acute kidney injury, severe. Continue dialysis. Monitor electrolytes. Adjust dialysis. 2.Sepsis and septic shock. Continue pressors and vancomycin. Monitor vancomycin level. . 3.Anemia. Monitor hemoglobin level. The patient may benefit from blood transfusion. 4.Generalized weakness and deconditioning. Further recommendation from primary team. EB/MODL Voice ID: [id number] Report ID: [id number]
[2020-09-17 05:09] LABS: Vitamin D 1,25-Dihydroxy Total 10 pg/mL (18-72); Vitamin D,1,25-OH2, D2 <8 pg/mL
[2020-09-17 05:39] LABS: Albumin 4.6 g/dL (3.4-5.0); Phosphorus 2.5 mg/dL (2.5-4.9); Potassium 3.4 mmol/L (3.5-5.1)
--- NOTE | 2020-09-17 05:54 | P.PN ---
Subjective Date of Service: 09/17/20 Chief Complaint: UGIB Subjective: Other (Patient not responsive to pain or stimuli. For the last 15 minutes, oxygen was low. She was on a nonrebreather this am. Oxygen sats 60%.) Physical Examination - Vital Signs Temperature: 97 F Blood Pressure: 135/77 Pulse: 67 Respirations: 26 Pulse Ox (%): 97 Assessment & Plan Discharge Plan: Home Plan to discharge in: 24 Hours Physician Review Additional Text: Physical exam: General: Difficult to arouse. No response to pain and stimuli. Oxygen sats low below 70%. 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 Melena secondary to upper GI bleed showing portal gastropathy with grade 1 varices Acute renal failure now with end-stage renal disease on hemodialysis likely secondary to hepatorenal syndrome with ATN, nephrotic range proteinuria COPD Atrial fibrillation Chronic advance cirrhosis etiology unknown likely related to [place] versus other etiology Hypertension now with hypotension History of CVA with chronic subdural hematoma History of femur fracture without repair UTI, urine culture positive for Staphylococcus Cohni Plan: Acute respiratory failure with hypoxia, bradycardia secondary to acute on chronic diastolic CHF: Spoke to Marc Washington, daughter, in detail concerning patients worsening condition. Patient remains DNR. No intubation. They want inpatient hospice. Will start BIPAP. Once family is able to see her, then will proceed with comfort measures. Melena secondary to upper GI bleed showing portal gastropathy with grade 1 varices: No more active bleeding noted. Patient switched over to Protonix IV twice daily. IV dripsoctreotide and Protonix discontinued. Monitor hemoglobin. Maintain hemoglobin above 7.5. Will monitor closely. No further intervention needed at this time. Patient now DNR. We will continue to monitor closely. Acute renal failure now with end-stage renal disease on hemodialysis likely secondary to hepatorenal syndrome with ATN, nephrotic range proteinuria: No significant improvement. Will recommend inpatient hospice. Daughter agrees with plan. Patient not a great candidate for long-term dialysis due to her poor prognosis. COPD: Continue medication, maintain oxygen above 93% Atrial fibrillation: Currently on amiodarone. Off anticoagulation therapy due to chronic subdural hematoma. Chronic advanced cirrhosis etiology unknown likely related to [place] versus other etiology: Continue Xifaxan. Patient not a candidate for transplant in the future. Continue with conservative measures. Hypertension now with hypotension: Currently on Levophed. Midodrine added. Off blood pressure medication. History of CVA with chronic subdural hematoma: CT scan showed chronic subdural hematoma. Family unsure when this occurred. Will repeat CT scan after 3 sessions of dialysis and with no improvement. Patient to have a EEG. Currently on Keppra as well. Will discuss further with neurology. History of femur fracture without repair: Patient not a candidate for repair at this time. UTI, urine culture positive for Staphylococcus Cohni: DC Rocephin. Will start vancomycin to cover for infection. Pharmacy to monitor and adjust medication DVT prophylaxis: SCD CODE STATUS: Patient DNR Advance care [id number] minutes: Patient made DNR over the weekend. Discussed with daughter. Patient remains DNR. She understands patients worsening condition. She desires inpatient hospice for the patient. Time Spent Managing Pts Care (In Minutes): 55
[2020-09-17 06:29] LABS: Absolute Lymphocytes (CBC) 2.2 K/uL (0.7-4.9); Basophils % 0.8 % (0-1.3); Hematocrit 28.7 % (36.0-45.0); Lymphocytes % 14.4 % (15.3-44.8); MPV 9.9 fL (7.6-11.3); RBC Red Blood Cell Count 2.87 M/uL (3.86-4.86)
[2020-09-17] MEDS ORDERED: LORazepam 2 MG/ML VIAL IV PRN (06:34)
[2020-09-17] MEDS ORDERED: MORPHINE 2 MG/ML SYR IV PRN (06:34)
[2020-09-17 06:37] LABS: Arterial Blood Carboxyhemoglob 2.1 % (0-1.5); Blood Gas Oxyhemoglobin 50.4 % (94-97); Blood O2 Saturation 52.1 % (92-98.5)
[2020-09-17] MEDS ORDERED: FLUCONAZOLE 100 MG TAB PO SCH (09:00)
--- NOTE | 2020-09-17 10:07 | P.DS ---
Admission Date: 09/11/20 Discharge Date: 09/17/20 Primary Care Provider: unknown Disposition: Discharge Condition: Reason for Admission: UGIB Consultations: Nephrology-Dr. Rodríguez GI-Dr. Gaitan Neurology-Dr. Slaughter Surgery-Dr. De Santiago Procedures: CT Head: COMPARISON: No comparisons TECHNIQUE: All CT scans are performed using dose optimization technique as appropriate and may include automated exposure control or mA/KV adjustment according to patient size. FINDINGS: Crescentic intermediate density collection along the right convexity, anterior 10 mm maximum thickness likely represents chronic right-sided subdural hematoma.No acute hemorrhage seen. No hydrocephalus present.No midline shift is evident. Mild periventricular and deep white matter chronic microvascular ischemic changes. The paranasal sinuses and mastoids are clear. The calvarium is intact. IMPRESSION: Right convexity chronic subdural hematoma suspected measuring up 10 mm in thickness. No significant midline shift is evident. CT scan: COMPARISON: None TECHNIQUE: Computed axial tomography of the abdomen and pelvis was obtained. IV and oral contrast were not requested. All CT scans are performed using dose optimization technique as appropriate and may include automated exposure control or mA/KV adjustment according to patient size. FINDINGS: The evaluation of solid organs, vessels and bowel is limited secondary to the lack of contrast administration. Small right pleural effusion. Liver has a nodular contour. Spleen, pancreas, and adrenals appear grossly normal. Bilateral renal cysts. Some are dense indicative of proteinaceous material. The cysts vary in size from 1-2 centimeters. There is no evidence of diverticulitis. Small amount of ascites. Diffuse edema within the subcutaneous tissue most prominent right laterally. Spondylosis involves lumbar spine resulting in spinal stenosis IMPRESSION: Small right pleural effusion Small amount ascites Nodular contour to the liver probably indicating chronic disease ECHO: MEASUREMENTS (cm) DIASTOLIC (NORMALS) SYSTOLIC (NORMALS) IVSd 1.0 (0.6-1.2) LA Diam 3.2 (1.9-4.0) LVEF 77% LVIDd 4.2 (3.5-5.7) LVIDs 2.3 (2.0-3.5) %FS 45% LVPWd 1.1 (0.6-1.2) Ao Diam 2.6 (2.0-3.7) 2 DIMENSIONAL ASSESSMENT: RIGHT ATRIUM: NORMAL LEFT ATRIUM: NORMAL RIGHT VENTRICLE: NORMAL LEFT VENTRICLE: NORMAL TRICUSPID VALVE: NORMAL MITRAL VALVE: MITRAL ANNULAR CALCIFICATION PULMONIC VALVE: NORMAL AORTIC VALVE: SCLEROSIS PERICARDIAL EFFUSION: NONE AORTIC ROOT: NORMAL LEFT VENTRICULAR WALL MOTION: NORMAL DOPPLER/COLOR FLOW: NORMAL COMMENTS: MITRAL ANNULAR CALCIFICATION. AORTIC SCLEROSIS. NORMAL LEFT VENTRICULAR SIZE AND FUNCTION. Renal US: COMPARISON: No comparisons FINDINGS: Both kidneys are normal in size, shape and echotexture. The right kidney measures 10.2 x 5.0 x 4.7 cm. No hydronephrosis, focal mass or perinephric fluid. Benign right renal cysts, largest measuring 19 mm. The left kidney measures 10.6 x 5.3 x 4.9 cm. No hydronephrosis, focal mass or perinephric fluid. The urinary bladder is incompletely distended without gross abnormality seen. IMPRESSION: Benign right renal cysts are present. No hydronephrosis is evident. Surgery: Right Internal Jugular Darci catheter placement Impression: Acute respiratory failure with hypoxia secondary to acute on chronic diastolic CHF Melena secondary to upper GI bleed with EGD showing portal gastropathy with grade 1 varices complicated with acute on chronic anemia Acute renal failure now with end-stage renal disease on hemodialysis secondary to hepatorenal syndrome with ATN, nephrotic range proteinuria COPD Atrial fibrillation Chronic advanced cirrhosis likely related to [place] versus other etiology Hypertension now with hypotension secondary to above History of CVA with chronic subdural hematoma History of femur fracture without repair UTI, urine culture positive for Staphylococcus Cohni Bradycardia Brief History of Present Illness: 75-year-old female with history of diastolic CHF, paroxysmal atrial fibrillation on Coumadin, history of CVA, hypertension, COPD, and cirrhosis. [facility] to melena and rectal bleeding. Initial chest x-ray showed right pleural effusion with enlarged heart. CT scan showed pleural effusion with small ascites and nodular liver indicating chronic disease. The patient was admitted for further evaluation and treatment. Hospital Course: [facility] Patient with recent fracture of femur. She was not a candidate for repair due to her multiple medical problems including COPD, CHF, atrial fibrillation, chronic renal disease, cirrhosis and hypertension. She presented to the emergency room with melena. Patient with anemia of chronic disease. Upper GI bleed was suspected. All anticoagulation therapy was held. Patient was evaluated by GI. Patient was treated with IV octreotide and Protonix. Hemoglobin was stable after transfusion of blood. EGD performed showed portal gastropathy with grade 1 varices. Patient was also found with other compromising multiple medical issues including acute renal failure and liver failure. Acute renal failure was end-stage requiring dialysis. This was likely secondary to hepatorenal syndrome and ATN. Advanced chronic cirrhosis was noted. This is likely from [place] or other etiology. During the course of her stay patient was evaluated by nephrology due to her worsening condition. Patient was also found to have chronic subdural hematoma. This was noted on CT scan. Neurology was consulted to address this. No intervention was required. Consideration of repeat CT scan was suggested if her condition did not improve. Her condition did not improve. Patient required vasopressor therapy due to hypotension related to multiple medical issues including anemia of chronic disease with upper GI bleed, acute on chronic renal failure now requiring hemodialysis, chronic renal failure, and acute on chronic CHF. Patient remained on amiodarone for her atrial fibrillation. No anticoagulation therapy was recommended due to her anemia. As for her hypertension, medications were held as the patient required vasopressor therapy. As for her renal function, this continued to decline requiring hemodialysis. Nephrology suspected hepatorenal syndrome with ATN and nephrotic range proteinuria. This was discussed in detail with the family. Family agreed to proceed with hemodialysis. Hemodialysis catheter was placed. Dialysis was performed. Patient was also found to have a UTI positive for Staphylococcus. Patient was started on IV vancomycin which was sensitive. As her condition continued to decline patient went into acute respiratory failure with hypoxia. Bradycardia was also noted. Respiratory failure likely related to acute on chronic diastolic CHF compromised by acute liver and kidney failure related to hepatorenal syndrome was the likely cause of her continued deterioration. Prognosis was poor. Advanced care planning had been addressed in detail early in her stay. Patient was DO NOT RESUSCITATE. As her condition continued to decline further advance care planning was readdressed concerning further measures. Family understood that her condition was grave. Her chance of recovery was poor. Family decided on inpatient hospice due to her worsening condition and poor prognosis. Before inpatient hospice could be initiated the patient peacefully. July she rest in peace. Vital Signs/Physical Exam: Temp Pulse Resp BP Pulse Ox 97 F 67 26 H 135/77 97 09/17/20 06:33 09/17/20 06:33 09/17/20 06:33 09/17/20 06:33 09/17/20 06:33 Other Physical/Emotional Findings: Patient Laboratory Data at Discharge: WBC 15.30 K/uL (4.3-10.9) H D 09/17/20 06:17 Hgb 9.3 g/dL (12.0-15.0) L 09/17/20 06:17 Hct 28.7 % (36.0-45.0) L D 09/17/20 06:17 Plt Count 56 K/uL (152-406) L 09/17/20 06:17 PT 46.7 SECONDS (9.5-12.5) H 09/16/20 04:30 INR 4.00 09/16/20 04:30 APTT 57.0 SECONDS (24.3-36.9) H 09/16/20 04:30 Sodium Cancelled 09/17/20 05:54 Potassium Cancelled 09/17/20 05:54 BUN Cancelled 09/17/20 05:54 Creatinine Cancelled 09/17/20 05:54 Glucose Cancelled 09/17/20 05:54 Uric Acid Cancelled 09/12/20 05:00 Phosphorus 2.5 mg/dL (2.5-4.9) 09/17/20 05:00 Magnesium 2.0 mg/dL (1.8-2.4) 09/16/20 05:10 Total Bilirubin 1.8 mg/dL (0.2-1.0) H 09/16/20 05:10 AST 23 U/L (15-37) 09/16/20 05:10 ALT 10 U/L (12-78) L 09/16/20 05:10 Alkaline Phosphatase 89 U/L (45-117) 09/16/20 05:10 Troponin I Cancelled 09/11/20 20:19 Home Medications: Acetaminophen [Tylenol] 650 mg PO Q4HP PRN 09/11/20 Amiodarone HCl 100 mg PO DAILY 09/11/20 Ammonium Lactate 1 appl TP BID 09/11/20 Bisacodyl [Dulcolax] 10 mg RC DAILY PRN 09/11/20 Buspirone HCl 15 mg PO BID 09/11/20 Collagenase [Santyl Ointment] 1 appl TP DAILY 09/11/20 Digoxin [Lanoxin] 0.125 mg PO DAILY 09/11/20 Docusate Sodium [Stool Softener] 100 mg PO DAILY 09/11/20 Enoxaparin Sodium [Lovenox 100 MG INJ] 90 mg SQ BID 09/11/20 Fluconazole [Diflucan] 150 mg PO SEECOM 09/11/20 Furosemide [Lasix] 20 mg PO DAILY 09/11/20 Ipratropium/Albuterol Sulfate [Combivent Respimat Inhal [place]] 1 inh IH Q6H 09/11/20 Lidocaine 4% Patch [Lidoderm 5% Patch] 1 patch TD DAILY 09/11/20 Nystatin Powder [Mycostatin (Powder)] 1 appl TP BID 09/11/20 Ondansetron HCl 4 mg PO Q8HP 09/11/20 Polyethylene Glycol 3350 [Miralax] 17 gm PO DAILY 09/11/20 Potassium Chloride 20 meq PO DAILY 09/11/20 Sennosides/Docusate Sodium [Senna-Docusate Sodium Tablet] 1 each PO DAILY 09/11/20 Zinc Oxide [Zinc Oxide 20%] 1 appl TOP TID 09/11/20 Physician Discharge Instructions: Patient . July she rest in peace. Followup: NONE,NONE [Primary Care Provider] - Time spent managing pt's care (in minutes): 55
[2020-09-17 10:41] LABS: Anisocytosis 1+; Blood Morphology Comment NOTED (NOT SEEN); Platelet Estimate DECR
== END 2020-09-17 06:35 | disposition expired | DRG 368 ==
LOC: ER 19:11 → ERHOLD 09-11 02:25 → 2ND 09-11 03:23 → ERHOLD 09-11 17:04
PROVIDERS: ADMIT Hospitalist; ATTEND Family Medicine
PROC: 02HV33Z Insertion of Infusion Device into Superior Vena Cava, Percutaneous Approach (ICD-10-PCS; 2020-09-13)
PROC: B5181ZA Fluoroscopy of Superior Vena Cava using Low Osmolar Contrast, Guidance (ICD-10-PCS; 2020-09-13)
PROC: 0DJ08ZZ Inspection of Upper Intestinal Tract, Via Natural or Artificial Opening Endoscopic (ICD-10-PCS; 2020-09-13)
PROC: 5A1D70Z Performance of Urinary Filtration, Intermittent, Less than 6 Hours Per Day (ICD-10-PCS; principal; 2020-09-13 06:15)
PROC: 02HV33Z Insertion of Infusion Device into Superior Vena Cava, Percutaneous Approach (ICD-10-PCS; 2020-09-14)
PROC: 30233N1 Transfusion of Nonautologous Red Blood Cells into Peripheral Vein, Percutaneous Approach (ICD-10-PCS; 2020-09-16)
DX: I85.01 Esophageal varices with bleeding (principal); N17.0 Acute kidney failure with tubular necrosis; N18.6 End stage renal disease; A41.9 Sepsis, unspecified organism; R65.21 Severe sepsis with septic shock; J96.01 Acute respiratory failure with hypoxia; I50.33 Acute on chronic diastolic (congestive) heart failure; T82.41XA Breakdown (mechanical) of vascular dialysis catheter, initial encounter; K76.6 Portal hypertension; N39.0 Urinary tract infection, site not specified; R18.8 Other ascites; G93.40 Encephalopathy, unspecified; I13.2 Hypertensive heart and chronic kidney disease with heart failure and with stage 5 chronic kidney disease, or end stage renal disease; K31.89 Other diseases of stomach and duodenum; D63.1 Anemia in chronic kidney disease; D50.9 Iron deficiency anemia, unspecified; J44.9 Chronic obstructive pulmonary disease, unspecified; I48.0 Paroxysmal atrial fibrillation; K74.60 Unspecified cirrhosis of liver; I95.9 Hypotension, unspecified; K75.81 Nonalcoholic steatohepatitis (NASH); F03.90 Unspecified dementia, unspecified severity, without behavioral disturbance, psychotic disturbance, mood disturbance, and anxiety; E66.9 Obesity, unspecified; B95.7 Other staphylococcus as the cause of diseases classified elsewhere; R00.1 Bradycardia, unspecified; S06.5X9D Traumatic subdural hemorrhage with loss of consciousness of unspecified duration, subsequent encounter; Z66 Do not resuscitate; Z78.1 Physical restraint status; Z88.0 Allergy status to penicillin; Z79.01 Long term (current) use of anticoagulants; Z99.2 Dependence on renal dialysis; Z79.899 Other long term (current) drug therapy; Z86.73 Personal history of transient ischemic attack (TIA), and cerebral infarction without residual deficits; Z68.35 Body mass index [BMI] 35.0-35.9, adult; Z20.822 Contact with and (suspected) exposure to COVID-19
CPT/HCPCS: 36415; 36569; 70450; 71045; 74176; 76000; 76770; 80048; 80053; 80069; 80074; 80076; 81003; 81015; 82103; 82105; 82140; 82390; 82570; 82607; 82652; 82728; 82746; 82805; 83520; 83540; 83605; 83735; 83880; 83970; 84100; 84145; 84156; 84165; 84300; 84443; 84466; 84484; 84550; 85014; 85018; 85025; 85610; 85730; 86021; 86038; 86160; 86225; 86255; 86317; 86430; 86850; 86900; 86901; 87040; 87077; 87086; 87088; 87186; 90935; 92610; 93005; 93306; 94760; 99251; 99285; C9113; J0690; J0696; J1450; J1644; J1953; J2354; J2370; J2704; J2997; J3370; J3590; J7030; J7040; J7050; J7060; P9016; P9047; Q5106; U0003